=== PATIENT | female | born 1965 | race Caucasian/White ===

== ENCOUNTER 2017-03-07 09:43 | Outpatient (RCR) | payer MEDICARE ==
[~2017-03-07 09:43] MED LIST: ALBU8.5H2 INH; ASP325T PO; ASPI-624 PO; ASPI81TA45 PO; BNZT1T PO; BPR150TCR PO; BSC10SU PR; BUPR150T20 PO; CETI10TA17 PO; CHLO100T22 PO; CLON0.5T3 PO; CLON1TAB36 PO; CYCL10TA9 PO; FOLI-74 PO; HALO5TAB PO; HYDR-3729 PO; HYDR28CR10 TP; IRON150C6 PO; LORA10TA76 PO; LUBI24CA7 PO; LVT.1T PO; METFOR850T PO; METO25TA PO; MTP25TSR PO; MULT1CAP27 PO; NFPRILOC40 PO; OMEP40CA36 PO; OXCA600T3 PO; OXYC1TAB87 PO; PNT40TEC PO; POTA10CA43 PO; POTA10TA36 PO; PROAIR HFA 90MCG INH; QUET300T PO; SCR1T1 PO; SERT100T8 PO; SIMV40TA2 PO; SIMV40TA4 PO; SRTR100T PO; SUCR1TAB PO; TIOT18CA IH; TIOT18CA2 INH; TRAM50TA2 PO; TRAZ150T42 PO; TRM50T PO; ZIPR60CA6 PO
== END 2017-03-15 13:50 | disposition home or self-care (01) ==
PROVIDERS: ATTEND Nurse Practitioner Family
DX: S62.101D Fracture of unspecified carpal bone, right wrist, subsequent encounter for fracture with routine healing (principal)

== ENCOUNTER → 2017-04-29 | Outpatient (CLI) | payer MEDICARE ==
[~2017-04-29] MED LIST changes: +NITROGLYCERIN DRIP 25 MG/D5W 0 ML IV ONE
== END ==
LOC: CARD 08:16
PROVIDERS: ATTEND Physician Assistant
DX: I25.10 Atherosclerotic heart disease of native coronary artery without angina pectoris (principal); I10 Essential (primary) hypertension; E78.2 Mixed hyperlipidemia; I45.10 Unspecified right bundle-branch block
CPT/HCPCS: 93306

== ENCOUNTER → 2017-05-01 | Outpatient (CLI) | payer MEDICARE ==
[~2017-05-01] VITALS: Ht 180.3 cm; Wt 113.9 kg
[~2017-05-01] MED LIST changes: +CATHETER FLUSH 10 ML SYR IV PRN; -NITROGLYCERIN DRIP 25 MG/D5W 0 ML IV ONE; +REGADENOSON 0.4 MG/5 ML SYR (LEXISCAN) IV ONE
[2017-05-01 09:46] VITALS: BP 131/71
--- NOTE | 2017-05-02 06:10 | STRESS TEST ---
DATE OF SERVICE: 05/01/2017 LEXISCAN MYOVIEW STRESS TEST REPORT REFERRING PHYSICIAN: Dr. Char Gonzalez. Baseline heart rate is 58, baseline blood pressure 131/71. Baseline EKG is sinus rhythm with no ischemic changes. SUMMARY: The patient was injected with 10.47 mCi of technetium-99 Myoview and the resting images were obtained. Then, the patient received 0.4 mg of Lexiscan followed by 31.7 mCi of technetium-99 Myoview. Throughout the test, there were no EKG changes. The resting and stress images were reviewed and compared in the short axis, horizontal long axis, and vertical long axis views. Review of the images showed reversible ischemia involving the whole inferior wall and inferolateral wall. SSS is 12. SDS 12. PID value 1.14. On the gated images, the left ventricle appeared to be normal size with normal contractility. Calculated ejection fraction 65%. CONCLUSIONS: 1. The patient tolerated Lexiscan well. 2. Reversible ischemia involving the whole inferior wall and inferolateral wall. 3. Normal left ventricular size with normal contractility. Calculated ejection fraction 65%. Job ID: [id number] DocumentID: [id number] Dictated Date: 05/01/2017 15:06:31 Tractor Trailer Mechanic Date: 05/01/2017 19:49:07 Dictated By: SELENA MARIANO MD
== END ==
LOC: CARD 07:51
PROVIDERS: ATTEND Physician Assistant
DX: I25.10 Atherosclerotic heart disease of native coronary artery without angina pectoris (principal); I10 Essential (primary) hypertension; E78.2 Mixed hyperlipidemia; I45.10 Unspecified right bundle-branch block
CPT/HCPCS: 78452; 93017

== ENCOUNTER 2017-05-17 08:35 | Day surgery (SDC) | payer MEDICARE ==
[~2017-05-17] VITALS: Ht 181.6 cm; Wt 114.3 kg
[2017-05-17] VITALS (11 sets, daily range): BP systolic 101–135; BP diastolic 57–72
[~2017-05-17 08:35] MED LIST changes: -CATHETER FLUSH 10 ML SYR IV PRN; -REGADENOSON 0.4 MG/5 ML SYR (LEXISCAN) IV ONE
[2017-05-17] MEDS ORDERED: HEParin (CATH LAB) 2,000 ML IV ONE (08:42)
[2017-05-17] MEDS ORDERED: NS IV 1000 ML 1,000 ML ONE (08:42)
[2017-05-17] MEDS ORDERED: NS IV 1000 ML 1,000 ML IV SCH ×2 (08:49→10:32)
[2017-05-17 09:12] LABS: MEAN PLATELET VOLUME 10.4 FL (7.4-10.4); RED BLOOD COUNT 4.38 10^6/uL (4.35-5.85); RED CELL DISTRIBUTION WIDTH 12.3 % (10.0-14.5); WHITE BLOOD COUNT 6.6 10^3/uL (4.3-11.0)
--- NOTE | 2017-05-17 09:15 | Cardiac Procedure Note-CS/ASA ---
Pre-Procedure Note Pre-Op Procedure Note H&P Reviewed The H&P was reviewed, patient examined and no changes noted. Date H&P Reviewed: May 17, 2017 Time H&P Reviewed: 09:15 Conscious Sedation Pre-Proced Time Reviewed: 09:15 ASA Class: 3 Airway Mallampati Classification: ([place] appropriate class) I. II. III, IV Lungs Heart ASA score ASA 1: a normal healthy patient ASA 2: a patient with a mild systemic disease (mid diabetes, controlled hypertension, obesity x ASA 3: a patient with a severe systemic disease that limits activity (angina , COPD, prior Myocardial infarction) ASA 4: a patient with an incapacitating disease that is a constant threat to life (CHF, renal failure) ASA 5: a moribund patient not expected to survive 24 hrs. (ruptured aneurysm) ASA 6: a declared brain patient whose organs are being harvested. For emergent operations, add the letter E after the classification Grade 3 Sedation Plan: Analgesia, Amnesia, Plan communicated to team members, Discussed options with patient/fam, Discussed risks with patient/fam Note The patient is an appropriate candidate to undergo the planned procedure, sedation, and anesthesia. The patient immediately re-assessed prior to indication. SELENA MARIANO MD May 17, 2017 09:15
--- NOTE | 2017-05-17 09:19 | Diagnostic Imaging Report ---
EXAMINATION: Portable upright radiograph of the chest. INDICATION: Hypertension. Coronary artery disease. FINDINGS: The lungs are hyperinflated. The heart size is mildly enlarged. No effusion or pneumothorax. The mediastinum and luiz appear unremarkable. IMPRESSION: Hyperinflated clear lungs. Cardiomegaly. Dictated by: Dictated on workstation # [id number]
[2017-05-17 09:22] LABS: INR 0.9 (0.8-1.4); PROTHROMBIN TIME PATIENT 11.8 SEC (12.2-14.7)
[2017-05-17 09:28] LABS: CARBON DIOXIDE 27 MMOL/L (21-32); CHLORIDE 106 MMOL/L (98-107); POTASSIUM 3.8 MMOL/L (3.6-5.0); SODIUM 145 MMOL/L (135-145)
[2017-05-17 09:29] LABS: ALANINE AMINOTRANSFERASE 14 U/L (0-55); ANION GAP 12 MMOL/L (5-14); ASPARTATE AMINO TRANSFERASE 16 U/L (5-34); BILIRUBIN,TOTAL 0.3 MG/DL (0.1-1.0); BLOOD UREA NITROGEN 7 MG/DL (7-18); BUN/CREATININE RATIO 11 (0-20); CALCIUM 9.2 MG/DL (8.5-10.1); CHOLESTEROL 169 MG/DL (< 200); CREATININE SERUM 0.66 MG/DL (0.60-1.30); DIRECT LDL 69 MG/DL (1-129); GFR ESTIMATED > 60; GLUCOSE 91 MG/DL (70-105); HEMOLYSIS 11 (-100-29); ICTERUS 0.3 (-100-1.9); LIPEMIA 0 (-100-49); TOTAL PROTEIN 6.8 GM/DL (6.4-8.2); TRIGLYCERIDES 100 MG/DL (<150); VLDL CHOLESTEROL 20 MG/DL (5-40)
[2017-05-17] MEDS ORDERED: MIDAZOLAM 5 MG/5 ML (VERSED) VIAL ONE (09:33)
[2017-05-17] MEDS ORDERED: fentaNYL INJECTION 100 MCG/2 ML AMP ONE (09:33)
[2017-05-17] MEDS ORDERED: DIVA250T2 PO (09:46)
[2017-05-17] MEDS ORDERED: CARI4.5C PO (09:46)
[2017-05-17] MEDS ORDERED: GABA800T2 PO (09:46)
[2017-05-17] MEDS ORDERED: MULT-35 PO (09:46)
[2017-05-17] MEDS ORDERED: TRIH5TAB2 PO (09:46)
[2017-05-17] MEDS ORDERED: FERR-84 PO (09:46)
[2017-05-17] MEDS ORDERED: PARO30TA3 PO (09:46)
[2017-05-17] MEDS ORDERED: IRON1CAP21 PO (09:46)
[2017-05-17] MEDS ORDERED: LEVO88TA54 PO (09:46)
[2017-05-17] MEDS ORDERED: PANT40TA2 PO (09:46)
[2017-05-17] MEDS ORDERED: IPRA4AER IH (09:46)
[2017-05-17] MEDS ORDERED: FURO20TA4 PO (09:55)
[2017-05-17] MEDS ORDERED: ONDA8TAB6 PO (09:55)
[2017-05-17] MEDS ORDERED: LUBI24CA6 PO (09:55)
[2017-05-17] MEDS ORDERED: BUTA1CAP45 PO (09:55)
--- NOTE | 2017-05-17 10:32 | Cardiology Post Procedure Note ---
Post-Procedure Note Physician (s)/Field Counsel (s) Physician SELENA MARIANO MD Pre-Procedure Diagnosis Pre-Procedure Diagnosis: CAD Post-Procedure Note Procedure Start Date: May 17, 2017 Procedure Start Time: 10:00 Name of Procedure: [facility] Findings/Procedure Note CAD MILD Anesthesia Type: Conscious Sedation Estimated blood loss (mL): 20 Contrast Amount: 50 Post-Procedure Diagnosis Post-operative diagnosis: CAD SELENA MARIANO MD May 17, 2017 10:32
--- NOTE | 2017-05-17 10:34 | Discharge Inst-Post CATH ---
Discharge Inst-CATH Post Cardiac Cath D/C Inst Follow Up/Plan Appointment with Dr Doyle's office in 2-4 weeks CARDIAC CATH DISCHARGE INSTRUCTIONS *Hold Metformin for 48 hours post heart cath. ACTIVITY * Go Home directly and rest. * Limit activity of the leg (or wrist if it was used) for 7 days including aerobics, swimming, jogging, bicycling, etc. * Restrict stair-climbing for 7 days if possible, if not, climb up with your non -cath leg, then bring together on the same step. * Avoid lifting, pushing, pulling or excessive movement of the affected extremity for 7 days. * Customary sexual activity may be resumed after 2 days-use caution not to use a position that strains or causes pain to the affected extremity. * No driving for 24 hours. * NO SMOKING. * Avoid straining for bowel movements for 7 days. * Gentle walking on level ground is allowed. * Returning to work will depend on the type of procedure and the results. Your doctor will discuss this with you. CALL YOUR DOCTOR FOR ANY OF THE FOLLOWING: *If bleeding from the puncture site occurs- Apply gentle pressure to site with clean cloth and call your doctor or EMS. * If a knot or lump forms under the skin, increases in size, or causes pain. * If bruising appears to be worsening or moving further down your leg instead of disappearing. * Temperature above 101 F. CARE OF YOUR GROIN INCISION; * Bruising or purple discoloration of the skin near the puncture site is common. * You may shower only, no bathtub bathing for 5 days. Be careful to avoid slipping as your leg may feel stiff. * If a closure device was used on your femoral artery, please see the attached guide regarding care of the device and your leg. * REMOVE the dressing from your groin the next day after your procedure in the shower. CARE OF YOUR WRIST INCISION; * Bruising or purple discoloration of the skin near the puncture site is common. * You may shower. * DO NOT submerge wrist. * Remove dressing in 24 hours. SELENA DOYLE MD May 17, 2017 10:34
[2017-05-17] MEDS ORDERED: PATIENT MAY USE OWN MEDS, ALL PO SCH (10:45)
--- NOTE | 2017-05-17 11:20 | CARDIAC CATHETERIZATION ---
DATE OF SERVICE: 05/17/2017 REFERRING PHYSICIAN: Dr. Char Gonzalez BRIEF HISTORY: The patient is a 51-year-old lady with history of coronary artery, mild to moderate disease, hypertension, hyperlipidemia, had an abnormal stress test. She was scheduled for left heart catheterization, possible PTCA. PROCEDURE NOTE: After explaining the procedure to the patient, all pros and cons were explained, all questions were answered. The patient signed the consent and then she was placed on the cardiac catheterization laboratory. Right groin was prepped in a sterile fashion, local anesthesia applied to the right groin. A 6-Turkish sheath was placed in the right femoral artery. Combination of right and left Nic catheter were used to access the right and left coronary system. Multiple views were obtained. Pigtail catheter advanced to the left ventricular cavity. Left ventriculogram was done. Pullback LV to aorta was done. Aortic arch angiogram was done. Then at the end of the procedure, sheath was removed, Mynx device deployed, and hemostasis achieved. TOTAL CONTRAST USED: 50 mL. TOTAL RADIATION DOSE: 40 mGy. FINDINGS: HEMODYNAMICS: LV pressure 130/17, end diastolic pressure of 17, aortic pressure 136/100 mean of 71. No significant gradient across the aortic valve. ANATOMY: 1. Left main coronary artery is bifurcating into left anterior descending and left circumflex artery with no obstructive disease. 2. Left anterior descending artery is moderate in size with mild disease, nonobstructive disease. 3. Left circumflex artery is moderate in size with no significant obstructive disease. 4. Right coronary artery is moderate in size. Mild disease distally, nonobstructive disease. 5. No left ventriculogram was done. 6. Aortic arch angiogram appeared to be normal in size, no dissection or aneurysm was seen. Origin of the great neck vessels appeared normal. CONCLUSION: 1. Mild coronary artery disease, nonobstructive disease. 2. Normal left ventricular end diastolic pressure. 3. Normal aortic arch and great neck vessels. DISCUSSION AND RECOMMENDATION: The patient's stress test abnormality is probably due to small vessel disease. Medical therapy is recommended. No intervention is warranted. FINAL DIAGNOSES: 1. Coronary artery disease. 2. Hypertension. 3. Hyperlipidemia. Job ID: [id number] DocumentID: [id number] Dictated Date: 05/17/2017 10:39:09 Internet Technology Manager Date: 05/17/2017 11:19:47 Dictated By: SELENA MARIANO MD
--- OUTSIDE RECORDS SUMMARY | 2017-05-20 14:40 | XMS REPORT | Continuity of Care Document ---
Author Author [facility] Organization [facility] Address Unknown Phone Unavailable Allergies Active Description Code Type Severity Reaction Onset Reported/Identified Relationship to Patient Clinical Status Yes morphine [id number] Drug Allergy Mild ITCHING 03/23/2014 Yes naproxen [id number] Drug Allergy Mild ITCHING 03/23/2014 Medications Problems Date Dx Coded Attending Type Code Diagnosis Diagnosed By 10/24/1139 BARTOLOME LUCIANO APRN Ot S62.624D DISP FX OF MED PHALANX OF R RNG FNGR, 7T 10/24/1139 BARTOLOME LUCIANO APRN Ot W19.XXXD UNSPECIFIED FALL, SUBSEQUENT ENCOUNTER 10/24/1139 BARTOLOME LUCIANO APRN Ot 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, STORE OR MARKET PLACE 10/24/1139 BARTOLOME LUCIANO APRN Ot Y99.8 OTHER EXTERNAL CAUSE STATUS 10/24/1349 BARTOLOME LUCIANO APRN Ot S62.101D FX UNSP CARPAL BONE, RIGHT WRIST, SUBS F 08/20/2011 Ot 244.9 08/20/2011 Ot 250.00 08/20/2011 Ot 272.4 08/20/2011 Ot 300.00 08/20/2011 Ot 401.9 08/20/2011 Ot 786.50 08/20/2011 Ot 794.8 08/20/2011 Ot V58.69 11/08/2011 Ot V43.65 KNEE JOINT REPLACEMENT STATUS 11/08/2011 Ot V54.81 AFTERCARE FOLLOWING JOINT REPLACEMENT 11/08/2011 Ot V57.1 PHYSICAL THERAPY NEC 04/25/2012 Ot 724.2 LUMBAGO 04/25/2012 Ot V57.1 PHYSICAL THERAPY NEC 04/25/2012 Ot 719.46 JOINT PAIN-L/LEG 04/25/2012 Ot V43.65 KNEE JOINT REPLACEMENT STATUS 04/25/2012 Ot V54.81 AFTERCARE FOLLOWING JOINT REPLACEMENT 04/25/2012 Ot V57.1 PHYSICAL THERAPY NEC 12/24/2013 LASHAE LUANNE Ot 722.52 LUMB/LUMBOSAC DISC DEGEN 12/24/2013 LOUISDELMIS SCHMITTLUANNE Ot V57.1 PHYSICAL THERAPY NEC 04/05/2014 [facility]FRANSICO SCHMITT YUAN Troy Ot 250.00 DIAB YS WO COMPL, TYPE II OR UNSPEC TY 04/05/2014 [facility]FRANSICO SCHMITT YUAN Troy Ot 276.8 HYPOPOTASSEMIA 04/05/2014 MICHAELFRANSICO DO YUAN Troy Ot 300.00 ANXIETY STATE NOS 04/05/2014 YAMILE SCHMITT YUAN Troy Ot 311 DEPRESSIVE DISORDER NEC 04/05/2014 MICHAELFRANSICO SCHMITT YUAN Troy Ot 401.9 HYPERTENSION NOS 04/05/2014 MICHAELFRANSICO SCHMITT YUAN Troy Ot 493.90 ASTHMA, UNSPECIFIED 04/05/2014 MICHAELFRANSICO SCHMITT YUAN Troy Ot 996.42 DISLOCATION OF PROSTHETIC JOINT 04/05/2014 MICHAELFRANSICO SCHMITT YUAN Troy Ot V43.65 KNEE JOINT REPLACEMENT STATUS 04/15/2014 GARCÍA GUTIERREZ, SELENA Geiger Ot 244.9 HYPOTHYROIDISM NOS 04/15/2014 SELENA MARIANO MD Ot 272.4 HYPERLIPIDEMIA NEC/NOS 04/15/2014 SELENA MARIANO MD Ot 401.9 HYPERTENSION NOS 04/15/2014 SELENA MARIANO MD Ot 785.1 PALPITATIONS 07/01/2014 BRIANNE JOHNSON Ot 244.9 HYPOTHYROIDISM NOS 07/01/2014 BRIANNE JOHNSON Ot 250.00 DIAB SY WO COMPL, TYPE II OR UNSPEC TY 07/01/2014 BRIANNE JOHNSON Ot 311 DEPRESSIVE DISORDER NEC 07/01/2014 BRIANEN JOHNSON Ot 493.90 ASTHMA, UNSPECIFIED 07/01/2014 BRIANNE JOHNSON Ot 564.1 IRRITABLE BOWEL SYNDROME 07/01/2014 BRIANNE JOHNSON Ot 696.1 OTHER PSORIASIS 07/01/2014 BRIANNE JOHNSON Ot 716.90 ARTHROPATHY NOS-UNSPEC 07/01/2014 BRIANNE JOHNSON Ot 785.1 PALPITATIONS 07/01/2014 BRIANNE JOHNSON Ot 847.0 SPRAIN OF NECK 07/01/2014 BRIANNE JOHNSON Ot 850.0 CONCUSSION W/O COMA 07/01/2014 BRIANNE JOHNSON Ot 924.8 MULTIPLE CONTUSIONS NEC 07/01/2014 GEM OROZCO BRIANNE L Ot E849.0 ACCIDENT IN HOME 07/01/2014 GEM OROZCO BRIANNE L Ot E888.1 FALL STRIKING OBJECT NEC 07/01/2014 GEM OROZCO BRIANNE L Ot V58.66 LONG-TERM (CURRENT) USE OF ASPIRIN 08/03/2014 EDWARD SANCHEZ MD Ot V43.65 KNEE JOINT REPLACEMENT STATUS 08/03/2014 EDWARD SANCHEZ MD Ot V54.81 AFTERCARE FOLLOWING JOINT REPLACEMENT 08/03/2014 EDWARD SANCHEZ MD Ot V57.89 REHABILITATION PROC NEC 08/06/2014 EDWARD SANCHEZ MD Ot V43.65 KNEE JOINT REPLACEMENT STATUS 08/06/2014 EDWARD SANCHEZ MD, Ot V54.81 AFTERCARE FOLLOWING JOINT REPLACEMENT 08/06/2014 EDWARD SANCHEZ MD Ot V57.89 REHABILITATION PROC NEC 10/14/2014 Ot 250.00 10/14/2014 Ot 397.0 10/14/2014 Ot 424.0 10/14/2014 Ot 729.5 10/14/2014 Ot 786.50 10/14/2014 Ot 250.00 10/14/2014 Ot 786.50 10/14/2014 Ot V58.66 10/14/2014 Ot V58.69 10/14/2014 Ot 786.50 10/14/2014 Ot V72.63 10/14/2014 Ot V72.81 10/14/2014 Ot 272.4 10/14/2014 SELENA MARIANO MD Ot 397.0 10/14/2014 SELENA MARIANO MD Ot 424.0 10/14/2014 SELENA MARIANO MD Ot 785.1 10/14/2014 SELENA MARIANO MD Ot 786.50 10/14/2014 YUAN OVALLE DO Ot 719.46 10/14/2014 YUAN OVALLE DO Ot V72.63 10/14/2014 YUAN OVALLE DO Ot V72.81 10/14/2014 YUAN OVALLE DO Ot V72.83 10/14/2014 YUAN OVALLE DO Ot V72.84 10/14/2014 YUAN OVALLE DO Ot V74.8 10/14/2014 YUAN OVALLE DO Ot 729.81 10/14/2014 Ot 244.9 10/14/2014 Ot 272.4 10/14/2014 Ot 401.9 10/14/2014 Ot 785.1 10/14/2014 YUAN OVALLE DO Ot 729.81 10/28/2014 Ot 250.00 10/28/2014 Ot 397.0 10/28/2014 Ot 424.0 10/28/2014 Ot 729.5 10/28/2014 Ot 786.50 10/28/2014 Ot 250.00 10/28/2014 Ot 786.50 10/28/2014 Ot V58.66 10/28/2014 Ot V58.69 10/28/2014 Ot 786.50 10/28/2014 Ot V72.63 10/28/2014 Ot V72.81 10/28/2014 Ot 272.4 10/28/2014 SELENA MARIANO MD Ot 397.0 10/28/2014 SELENA MARIANO MD Ot 424.0 10/28/2014 SELENA MARAINO MD Ot 785.1 10/28/2014 SELENA MARIANO MD Ot 786.50 10/28/2014 YUAN OVALLE DO Ot 719.46 10/28/2014 YUAN OVALLE DO Ot V72.63 10/28/2014 YUAN OVALLE DO Ot V72.81 10/28/2014 YUAN OVALLE DO Ot V72.83 10/28/2014 YUAN OVALLE DO Ot V72.84 10/28/2014 YUAN OVALEL DO Ot V74.8 10/28/2014 YUAN OVALLE DO Ot 729.81 10/28/2014 Ot 244.9 10/28/2014 Ot 272.4 10/28/2014 Ot 401.9 10/28/2014 Ot 785.1 11/22/2014 YUAN OVALLE DO Ot 729.81 11/30/2014 SELENA MARIANO MD Ot 272.4 11/30/2014 SELENA MARIANO MD Ot 397.0 11/30/2014 SELENA MARIANO MD Ot 401.9 11/30/2014 SELENA MARIANO MD Ot 424.0 11/30/2014 SELENA MARIANO MD Ot 426.4 11/30/2014 SELENA MARIANO MD Ot 786.50 12/07/2014 SELENA MARIANO MD Ot 272.4 12/07/2014 SELENA MARIANO MD Ot 397.0 12/07/2014 SELENA MARIANO MD Ot 401.9 12/07/2014 SELENA MARIANO MD Ot 424.0 12/07/2014 SELENA MARIANO MD Ot 426.4 12/07/2014 SELENA MARIANO MD Ot 786.50 12/22/2014 SELENA MARIANO MD Ot 244.9 HYPOTHYROIDISM NOS 12/22/2014 SELENA MARIANO MD Ot 250.00 DIAB SY WO COMPL, TYPE II OR UNSPEC TY 12/22/2014 SELENA MARIANO MD Ot 272.4 HYPERLIPIDEMIA NEC/NOS 12/22/2014 SELENA MARIANO MD Ot 278.00 OBESITY, NOS 12/22/2014 SELENA MARIANO MD Ot 401.9 HYPERTENSION NOS 12/22/2014 SELENA MARIANO MD Ot 414.01 CORONARY ATHEROSCLEROSIS OF [place] CORON 12/22/2014 SELENA MARIANO MD Ot 786.50 CHEST PAIN NOS 12/22/2014 SELENA MARIANO MD Ot V58.69 OT MED,LT,CURRENT USE 12/22/2014 SELENA MARIANO MD Ot V85.33 BODY MASS INDEX 33.0-33.9, ADULT 12/25/2014 SELENA MARIANO MD Ot 272.4 12/25/2014 SELENA MARIANO MD Ot 397.0 12/25/2014 SELENA MARIANO MD Ot 401.9 12/25/2014 SELENA MARIANO MD Ot 424.0 12/25/2014 SELENA MARIANO MD Ot 426.4 12/25/2014 SELENA MARIANO MD Ot 786.50 12/29/2014 Ot 250.00 12/29/2014 Ot 397.0 12/29/2014 Ot 424.0 12/29/2014 Ot 729.5 12/29/2014 Ot 786.50 12/29/2014 Ot 250.00 12/29/2014 Ot 786.50 12/29/2014 Ot V58.66 12/29/2014 Ot V58.69 12/29/2014 Ot 786.50 12/29/2014 Ot V72.63 12/29/2014 Ot V72.81 12/29/2014 Ot 272.4 12/29/2014 GARCÍA GUTIERREZ, SELENA Geiger Ot 397.0 12/29/2014 GARCÍA GUTIERREZ, SELENA Geiger Ot 424.0 12/29/2014 GARCÍA GUTIERREZ, SELENA Geiger Ot 785.1 12/29/2014 GARCÍA GUTIERREZ, SELENA Geiger Ot 786.50 12/29/2014 SATTERLY DOYUAN Ot 719.46 12/29/2014 SATTERLY DO, YUAN Troy Ot V72.63 12/29/2014 SATTERLY DO, YUAN Troy Ot V72.81 12/29/2014 SATTERLY DO, YUAN Troy Ot V72.83 12/29/2014 SATTERLY DO, YUAN Troy Ot V72.84 12/29/2014 [facility]LY DO, YUAN Troy Ot V74.8 12/29/2014 [facility]LY DO, YUAN Troy Ot 729.81 12/29/2014 Ot 244.9 12/29/2014 Ot 272.4 12/29/2014 Ot 401.9 12/29/2014 Ot 785.1 12/29/2014 GARCÍA GUTIERREZ, SELENA Geiger Ot 272.4 12/29/2014 GARCÍA GUTIERREZ, SELENA Geiger Ot 397.0 12/29/2014 GARCÍA GUTIERREZ, SELENA Geiger Ot 401.9 12/29/2014 GARCÍA GUTIERREZ, SELENA Geiger Ot 424.0 12/29/2014 GARCÍA GUTIERREZ, SELENA Geiger Ot 426.4 12/29/2014 GARCÍA GUTIERREZ, SELENA Geiger Ot 786.50 12/29/2014 GARCÍA GUTIERREZ, SELENA Geiger Ot 401.9 12/29/2014 GARCÍA GUTIERREZ, SELENA Geiger Ot 414.00 12/29/2014 GARCÍA GUTIERREZ, SELENA Geiger Ot 427.31 12/29/2014 GARCÍA GUTIERREZ, SELENA Geiger Ot 428.0 12/29/2014 GARCÍA GUTIERREZ, SELENA Geiger Ot 401.9 12/29/2014 GARCÍA GUTIERREZ, SELENA Geiger Ot 414.00 12/29/2014 GARCÍA GUTIERREZ, SELENA Geiger Ot 427.31 12/29/2014 GARCÍA GUTIERREZ, SELENA Geiger Ot 428.0 01/13/2015 GARCÍA GUTIERREZ, SELENA Geiger Ot 401.9 01/13/2015 SELENA MARIANO MD Ot 414.00 01/13/2015 GARCÍA GUTIERREZ, SELENA Geiger Ot 427.31 01/13/2015 SELENA MARIANO MD Ot 428.0 01/14/2015 Ot 250.00 01/14/2015 Ot 397.0 01/14/2015 Ot 424.0 01/14/2015 Ot 729.5 01/14/2015 Ot 786.50 01/14/2015 Ot 250.00 01/14/2015 Ot 786.50 01/14/2015 Ot V58.66 01/14/2015 Ot V58.69 01/14/2015 Ot 786.50 01/14/2015 Ot V72.63 01/14/2015 Ot V72.81 01/14/2015 Ot 272.4 01/14/2015 SELENA MARIANO MD Ot 397.0 01/14/2015 SELENA MARIANO MD Ot 424.0 01/14/2015 SELENA MARIANO MD Ot 785.1 01/14/2015 SELENA MARIANO MD Ot 786.50 01/14/2015 [facility] Ot 719.46 01/14/2015 [facility] DO, YUAN F Ot V72.63 01/14/2015 [facility] DO, YUAN F Ot V72.81 01/14/2015 [facility] DO, YUAN F Ot V72.83 01/14/2015 [facility] DO, YUAN F Ot V72.84 01/14/[facility] Ot V74.8 01/14[facility] F Ot 729.81 01/14/2015 Ot 244.9 01/14/2015 Ot 272.4 01/14/2015 Ot 401.9 01/14/2015 Ot 785.1 01/14/2015 SELENA MARIANO MD Ot 272.4 01/14/2015 GARCÍA GUTIERREZ, SELENA Geiger Ot 397.0 01/14/2015 SELENA MARIANO MD Ot 401.9 01/14/2015 SELENA MARIANO MD Ot 424.0 01/14/2015 SELENA MARIANO MD Ot 426.4 01/14/2015 SELENA MARIANO MD Ot 786.50 01/14/2015 SELENA MARIANO MD Ot 401.9 01/14/2015 GARCÍA GUTIERREZ, BASHAR J Ot 414.00 01/14/2015 GARCÍA GUTIERREZ, BASHAR J Ot 427.31 01/14/2015 GARCÍA GUTIERREZ, BASHAR J Ot 428.0 01/14/2015 DANIEL GUTIERREZ, EDWARD Ambrosio Ot V43.65 01/14/2015 DANIEL GUTIERREZ, EDWARD C Ot V54.81 01/14/2015 DANIEL GUTIERREZ, EDWARD C Ot V57.1 01/14/2015 DANIEL GUTIERREZ, EDWARD C Ot V43.65 01/14/2015 DANIEL GUTIERREZ, EDWARD C Ot V54.81 01/14/2015 DANIEL GUTIERREZ, EDWARD C Ot V57.1 01/14/2015 DANIEL GUTIERREZ, EDWARD C Ot V43.65 01/14/2015 DANIEL GUTIERREZ, EDWARD C Ot V54.81 01/14/2015 DANIEL GUTIERREZ, EDWARD C Ot V57.1 02/15/2015 GARCÍA GUTIERREZ, SELENA Geiger Ot 401.9 02/15/2015 GARCÍA GUTIERREZ, SELENA J Ot 414.00 02/15/2015 GARCÍA GUTIERREZ, SELENA J Ot 427.31 02/15/2015 GARCAÍ GUTIERREZ, SELENA J Ot 428.0 02/15/2015 DANIEL GUTIERREZ, EDWARD Ambrosio Ot V43.65 02/15/2015 DANIEL GUTIERREZ, EDWARD C Ot V54.81 02/15/2015 DANIEL GUTIERREZ, EDWARD C Ot V57.1 02/15/2015 GARCÍA GUTIERREZ, SELENA J Ot 401.9 02/15/2015 GARCÍA GUTIERREZ, BASHAR J Ot 414.00 02/15/2015 GARCÍA GUTIERREZ, BASHAR J Ot 427.31 02/15/2015 GARCÍA GUTIERREZ, BASJIM J Ot 428.0 02/22/2015 DANIEL GUTIERREZ, EDWARD C Ot V43.65 02/22/2015 DANIEL GUTIERREZ, EDWARD C Ot V54.81 02/22/2015 DANIEL GUTIERREZ, EDWARD C Ot V57.1 02/22/2015 GARCÍA GUTIERREZ, SELENA J Ot 401.9 02/22/2015 GARCÍA GUTIERREZ, SELENA J Ot 414.00 02/22/2015 GARCÍA GUTIERREZ, PETEHAR J Ot 427.31 02/22/2015 GARCÍA GUTIERREZ, SELENA Geiger Ot 428.0 03/17/2015 EDWARD SANCHEZ MD Ot V43.65 KNEE JOINT REPLACEMENT STATUS 03/17/2015 EDWARD SANCHEZ MD Ot V54.81 AFTERCARE FOLLOWING JOINT REPLACEMENT 03/17/2015 EDWARD SANCHEZ MD Ot V57.1 PHYSICAL THERAPY NEC 04/06/2015 BRANDIN LOZADA MD Ot 346.90 04/06/2015 YAMILE SCHMITT YUAN Troy Ot 729.81 04/23/2015 BRANDIN LOZADA MD Ot 346.90 05/31/2015 BRANDIN LOZADA MD Ot 346.90 06/09/2015 BRANDIN LOZADA MD Ot 346.90 08/24/2015 EDWARD SANCHEZ MD Ot V43.65 KNEE JOINT REPLACEMENT STATUS 08/24/2015 EDWARD SANCHEZ MD Ot V54.81 AFTERCARE FOLLOWING JOINT REPLACEMENT 08/24/2015 EDWARD SANCHEZ MD Ot V57.1 PHYSICAL THERAPY NEC 08/25/2015 EDWARD SANCHEZ MD Ot V43.65 08/25/2015 EDWARD SANCHEZ MD Ot V54.81 08/25/2015 EDWARD SANCHEZ MD Ot V57.1 08/25/2015 EDWARD SANCHEZ MD Ot V43.65 08/25/2015 EDWARD SANCHEZ MD Ot V54.81 08/25/2015 EDWARD SANCHEZ MD Ot V57.1 10/14/2015 NIRMAL JACKSON MD Ot S00.93XA CONTUSION OF UNSPECIFIED PART OF HEAD, I 10/14/2015 NIRMAL JACKSON MD Ot W01.10XA FALL SAME LEV FROM SLIP/TRIP W STRIKE AG 10/14/2015 NIRMAL JACKSON MD Ot Y92.[address] TO SINGLE-FAMILY ( PRIVA 10/14/2015 NIRMAL JACKSON MD Ot Y99.8 OTHER EXTERNAL CAUSE STATUS 10/14/2015 NIRMAL JACSKON MD Ot 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 10/14/2015 NIRMAL JACKSON MD Ot Z96.651 PRESENCE OF RIGHT ARTIFICIAL KNEE JOINT 10/24/2015 EDWARD SANCHEZ MD, Ot Z47.1 10/24/2015 EDWARD SANCHEZ MD Ot Z96.651 11/15/2015 Ot 250.00 11/15/2015 Ot 397.0 11/15/2015 Ot 424.0 11/15/2015 Ot 729.5 11/15/2015 Ot 786.50 11/15/2015 Ot 250.00 11/15/2015 Ot 786.50 11/15/2015 Ot V58.66 11/15/2015 Ot V58.69 11/15/2015 Ot 786.50 11/15/2015 Ot V72.63 11/15/2015 Ot V72.81 11/15/2015 Ot 272.4 11/15/2015 SELENA MARIANO MD Ot 397.0 11/15/2015 SELENA MARAINO MD Ot 424.0 11/15/2015 SELENA MARIANO MD Ot 785.1 11/15/2015 SELENA MARIANO MD Ot 786.50 11/15/2015 [facility] 719.46 11/15/2015 [facility] DO, YUAN Troy Ot V72.63 11/15/2015 [facility] YUAN SCHMITT Ot V72.81 11/15/2015 [facility] YUAN SCHMITT Ot V72.83 11/15/2015 [facility] , YUAN Troy Ot V72.84 11/15/2015 [facility] YUAN SCHMITT Ot V74.8 11/15/2015 [facility] YUAN SCHMITT Ot 729.81 11/15/2015 Ot 244.9 11/15/2015 Ot 272.4 11/15/2015 Ot 401.9 11/15/2015 Ot 785.1 11/15/2015 SELENA MARIANO MD Ot 272.4 11/15/2015 SELENA MARIANO MD Ot 397.0 11/15/2015 SELENA MARIANO MD Ot 401.9 11/15/2015 SELENA MARIANO MD Ot 424.0 11/15/2015 SELENA MARIANO MD Ot 426.4 11/15/2015 SELENA MARIANO MD Ot 786.50 11/15/2015 SELENA MARIANO MD Ot 401.9 11/15/2015 SELENA MARIANO MD Ot 414.00 11/15/2015 GARCÍA GUTIERREZ, SELENA Geiger Ot 427.31 11/15/2015 GARCÍA GUTIERREZ, SELENA Geiger Ot 428.0 11/15/2015 KIERRA GUTIERREZ, BRANDIN Flynn Ot 346.90 11/15/2015 DANIEL GUTIERREZ, EDWARD Ambrosio Ot Z47.1 11/15/2015 EDWARD SANCHEZ MD Ot Z96.651 11/24/2015 DANIEL GUTIERREZ, EDWARD Ambrosio Ot Z47.1 AFTERCARE FOLLOWING JOINT REPLACEMENT CUEVAS 11/24/2015 DANIEL GUTIERREZ, EDWARD Ambrosio Ot Z96.651 PRESENCE OF RIGHT ARTIFICIAL KNEE JOINT 11/28/2015 Ot 250.00 11/28/2015 Ot 397.0 11/28/2015 Ot 424.0 11/28/2015 Ot 729.5 11/28/2015 Ot 786.50 11/28/2015 Ot 250.00 11/28/2015 Ot 786.50 11/28/2015 Ot V58.66 11/28/2015 Ot V58.69 11/28/2015 Ot 786.50 11/28/2015 Ot V72.63 11/28/2015 Ot V72.81 11/28/2015 Ot 272.4 11/28/2015 GARCÍA GUTIERREZ, SELENA Geiger Ot 397.0 11/28/2015 SELENA MARIANO MD Ot 424.0 11/28/2015 SELENA MARIANO MD Ot 785.1 11/28/2015 SELENA MARIANO MD Ot 786.50 11/28/2015 YUAN OVALLE DO Ot 719.46 11/28/2015 SATCELIALY YUAN SCHMITT F Ot V72.63 11/28/2015 SATCELIALY YUAN SCHMITT F Ot V72.81 11/28/2015 SATCELIALY YUAN SCHMITT F Ot V72.83 11/28/2015 SATTERLY DO YUAN F Ot V72.84 11/28/2015 SATTERLY YUAN SCHMITT F Ot V74.8 11/28/2015 SATCELIALY YUAN SCHMITT F Ot 729.81 11/28/2015 Ot 244.9 11/28/2015 Ot 272.4 11/28/2015 Ot 401.9 11/28/2015 Ot 785.1 11/28/2015 SELENA MARIANO MD Ot 272.4 11/28/2015 SELENA MARIANO MD Ot 397.0 11/28/2015 GARCÍA GUTIERREZ, SELENA Geiger Ot 401.9 11/28/2015 GARCÍA GUTIERREZ, SELENA Geiger Ot 424.0 11/28/2015 GARCÍA GUTIERREZ, SELENA Geiger Ot 426.4 11/28/2015 SELENA MARIANO MD Ot 786.50 11/28/2015 GARCÍA GUITERREZ, SELENA Geiger Ot 401.9 11/28/2015 GARCÍA GUTIERREZ, SELENA Geiger Ot 414.00 11/28/2015 GARCÍA GUTIERREZ, SELENA Geiger Ot 427.31 11/28/2015 GARCÍA GUTIERREZ, SELENA Geiger Ot 428.0 11/28/2015 KIERRA GUTIERREZ, BRANDIN Flynn Ot 346.90 11/28/2015 RUFINA DPM, ALBERT Q Ot G57.51 11/28/2015 RUFINA DPM, ALBERT Q Ot M25.474 11/28/2015 DANIEL GUTIERREZ, EDWARD Ambrosio Ot Z47.1 11/28/2015 DANIEL GUTIERREZ, EDWARD Ambrosio Ot Z96.651 11/28/2015 DANIEL GUTIERREZ, EDWARD Ambrosio Ot Z47.1 11/28/2015 DANIEL GUTIERREZ, EDWARD C Ot Z96.651 11/28/2015 DANIEL GUTIERREZ, EDWARD Ambrosio Ot Z47.1 11/28/2015 DANIEL GUTIERREZ, EDWARD Ambrosio Ot Z96.651 12/09/2015 RUFINA DPM, ALBERT Q Ot G57.51 12/09/2015 RUFINA DPM, ALBERT Q Ot M25.474 12/27/2015 Ot 250.00 12/27/2015 Ot 397.0 12/27/2015 Ot 424.0 12/27/2015 Ot 729.5 12/27/2015 Ot 786.50 12/27/2015 Ot 250.00 12/27/2015 Ot 786.50 12/27/2015 Ot V58.66 12/27/2015 Ot V58.69 12/27/2015 Ot 786.50 12/27/2015 Ot V72.63 12/27/2015 Ot V72.81 12/27/2015 Ot 272.4 12/27/2015 GARCÍA GUTIERREZ, SELENA Geiger Ot 397.0 12/27/2015 GARCÍA GUTIERREZ, SELENA Geiger Ot 424.0 12/27/2015 GARCÍA GUTIERREZ, SELENA Geiger Ot 785.1 12/27/2015 GARCÍA GUTIERREZ, BASJIM J Ot 786.50 12/27/2015 SATHUBERT DO, YUAN Troy Ot 719.46 12/27/2015 SATCELIALY DO, YUAN Troy Ot V72.63 12/27/2015 SATTERLY DO, YUAN Troy Ot V72.81 12/27/2015 SATTERLY DO, YUAN Troy Ot V72.83 12/27/2015 SATTERLY DO, YUAN Tryo Ot V72.84 12/27/2015 SATTERLY DO, YUAN Troy Ot V74.8 12/27/2015 SATTERLY DO, YUAN Troy Ot 729.81 12/27/2015 Ot 244.9 12/27/2015 Ot 272.4 12/27/2015 Ot 401.9 12/27/2015 Ot 785.1 12/27/2015 GARCÍA GUTIERREZ, SELENA Geiger Ot 272.4 12/27/2015 GARCÍA GUTIERREZ, SELENA J Ot 397.0 12/27/2015 GARCÍA GUTIERREZ, SELENA J Ot 401.9 12/27/2015 GARCÍA GUTIERREZ, SELENA J Ot 424.0 12/27/2015 GARCÍA GUTIERREZ, SELENA J Ot 426.4 12/27/2015 GARCÍA GUTIERREZ, SELENA J Ot 786.50 12/27/2015 GARCÍA GUTIERREZ, SELENA J Ot 401.9 12/27/2015 GARCÍA GUTIERREZ, SELENA Geiger Ot 414.00 12/27/2015 GARCÍA GUTIERREZ, SELENA Geiger Ot 427.31 12/27/2015 GARCÍA GUTIERREZ, SELENA Geiger Ot 428.0 12/27/2015 BRANDIN LOZADA MD Ot 346.90 12/27/2015 RUFINA DPM, ALBERT Q Ot G57.51 12/27/2015 RUFINA DPM, ALBERT Q Ot M25.474 12/27/2015 DANIEL GUTIERREZ, EDWARD Ambrosio Ot Z47.1 12/27/2015 EDWARD SANCHEZ MD Ot Z96.651 12/27/2015 RUFINA DPM, ALBERT Q Ot G57.51 12/27/2015 RUFINA DPM, ALBERT Q Ot M25.474 01/03/2016 DANIEL GUTIERREZ, EDWARD Ambrosio Ot Z47.1 AFTERCARE FOLLOWING JOINT REPLACEMENT CUEVAS 01/03/2016 DANIEL GUTIERREZ, EDWARD Ambrosio Ot Z96.651 PRESENCE OF RIGHT ARTIFICIAL KNEE JOINT 01/11/2016 RUFINA DPM, ALBERT Q Ot G57.51 01/11/2016 RUFINA DPM, ALBERT Q Ot M25.474 03/20/2016 ANKITA, BARTOLOME E CAN WASHER Ot S62.624D DISP FX OF MED PHALANX OF R RNG FNGR, 7T 03/20/2016 ANKITA, BARTOLOME E CAN WASHER Ot W19.XXXD UNSPECIFIED FALL, SUBSEQUENT ENCOUNTER 03/20/2016 ANKITA, BARTOLOME E CAN WASHER Ot 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33 OBSTRUCTIVE SLEEP APNEA (ADULT) (PEDIATR 11/02/2016 SOFYA GUTIERREZ, AMERICO Flynn Ot G47.33 OBSTRUCTIVE SLEEP APNEA (ADULT) (PEDIATR 11/08/2016 SOFYA GUTIERREZ, AMERICO Flynn Ot G47.33 OBSTRUCTIVE SLEEP APNEA (ADULT) (PEDIATR 02/13/2017 SELENA MARIANO MD Ot 397.0 TRICUSPID VALVE DISEASE 02/13/2017 SELENA MARIANO MD Ot 424.0 MITRAL VALVE DISORDER 02/13/2017 SELENA MARIANO MD Ot 785.1 PALPITATIONS 02/13/2017 SELENA MARIANO MD Ot 786.50 CHEST PAIN NOS 02/13/2017 YUAN OVALLE DO Ot 719.46 JOINT PAIN-L/LEG 02/13/2017 YUAN OVALLE DO Ot V72.63 PRE-PROCEDURAL LABORATORY EXAMINATION 02/13/2017 YUAN OVALLE DO Ot V72.81 [id number] CARDIOVASCULAR 02/13/2017 YUAN OVALLE DO Ot V72.83 EXAM PRE-OPERATIVE NEC 02/13/2017 YUAN OVALLE DO Ot V72.84 EXAM PRE-OPERATIVE NOS 02/13/2017 YUAN OVALLE DO Ot V74.8 SCREEN-BACTERIAL DIS NEC 02/13/2017 YUAN OVALLE DO Ot 729.81 SWELLING OF LIMB 02/13/2017 Ot 244.9 HYPOTHYROIDISM NOS 02/13/2017 Ot 272.4 HYPERLIPIDEMIA NEC/NOS 02/13/2017 Ot 401.9 HYPERTENSION NOS 02/13/2017 Ot 785.1 PALPITATIONS 02/13/2017 SELENA MARIANO MD Ot 272.4 HYPERLIPIDEMIA NEC/NOS 02/13/2017 SELENA MARIANO MD Ot 397.0 TRICUSPID VALVE DISEASE 02/13/2017 SELENA MARIANO MD Ot 401.9 HYPERTENSION NOS 02/13/2017 SELENA MARIANO MD Ot 424.0 MITRAL VALVE DISORDER 02/13/2017 SELENA MARIANO MD Ot 426.4 RT BUNDLE BRANCH BLOCK 02/13/2017 SELENA MARIANO MD Ot 786.50 CHEST PAIN NOS 02/13/2017 SELENA MARIANO MD Ot 401.9 HYPERTENSION NOS 02/13/2017 SELENA MARIANO MD Ot 414.00 CORON ATHEROSCLER NOS TYPE VESSEL, NATIV 02/13/2017 SELENA MARIANO MD Ot 427.31 ATRIAL FIBRILLATION 02/13/2017 SELENA MARIANO MD Ot 428.0 CONGESTIVE HEART FAILURE NOS 02/13/2017 KIERRA GUTIERREZ, BRANDNI Flynn Ot 346.90 MIGRAINE UNSPECIFIED W/O INTRACT MGRN W/ 02/13/2017 RUFINA DPM, ALBERT Q Ot G57.51 TARSAL TUNNEL SYNDROME, RIGHT LOWER LIMB 02/13/2017 RUFINA DPM, ALBERT Q Ot M25.474 EFFUSION, RIGHT FOOT 03/15/2017 BARTOLOME LUCIANO APRN Ot S62.101D FX UNSP CARPAL BONE, RIGHT WRIST, SUBS F 05/02/2017 ANGELA CHEN Ot E78.2 MIXED HYPERLIPIDEMIA 05/02/2017 ANGELA CHEN Ot I10 ESSENTIAL (PRIMARY) HYPERTENSION 05/02/2017 ANGELA CHEN Ot I25.10 ATHSCL HEART DISEASE OF [place] CORONARY 05/02/2017 ANGELA CHEN Ot I45.10 UNSPECIFIED RIGHT BUNDLE- BRANCH BLOCK Procedures Code Description Performed By Performed On 00.81 JAYY OF KNEE REPLACEMENT, TIBIAL COMPON 04/01/2014 00.82 JAYY OF KNEE REPLACEMENT, FEMORAL COMPO 04/01/2014 Results Test Result Range Automated blood complete blood count (hemogram) panel - 05/17/17 09:02 Blood leukocytes automated count (number/volume) 6.6 10*3/ uL 4.3-11.0 Blood erythrocytes automated count (number/volume) 4.38 10*6 /uL 4.35-5.85 Venous blood hemoglobin measurement (mass/volume) 13.8 g/dL 11.5-16.0 Blood hematocrit (volume fraction) 41 % 35-52 Automated erythrocyte mean corpuscular volume 95 [foz_us] 80-99 Automated erythrocyte mean corpuscular hemoglobin (mass per erythrocyte) 32 pg 25-34 Automated erythrocyte mean corpuscular hemoglobin concentration measurement ( mass/volume) 33 g/dL 32-36 Automated erythrocyte distribution width ratio 12.3 % 10.0-14.5 Automated blood platelet count (count/volume) 286 10*3/uL 130-400 Automated blood platelet mean volume measurement 10.4 [foz_ us] 7.4-10.4 PT panel in platelet poor plasma by coagulation assay - 05/17/17 09:02 Prothrombin time (PT) in platelet poor plasma by coagulation assay 11.8 s 12.2-14.7 INR in platelet poor plasma or blood by coagulation assay 0.9 0.8-1.4 Activated partial thromboplastin time (aPTT) in platelet poor plasma bycoagulation assay - 05/17/17 09:02 Activated partial thromboplastin time (aPTT) in platelet poor plasma bycoagulation assay 29 s 24-35 Comprehensive metabolic panel - 05/17/17 09:02 Serum or plasma sodium measurement (moles/volume) 145 mmol/ L 135-145 Serum or plasma potassium measurement (moles/volume) 3.8 mmol/L 3.6-5.0 Serum or plasma chloride measurement (moles/volume) 106 mmol /L 98-107 Carbon dioxide 27 mmol/L 21-32 Serum or plasma anion gap determination (moles/volume) 12 mmol/L 5-14 Serum or plasma urea nitrogen measurement (mass/volume) 7 mg /dL 7-18 Serum or plasma creatinine measurement (mass/volume) 0.66 mg /dL 0.60-1.30 Serum or plasma urea nitrogen/creatinine mass ratio 11 0-20 Serum or plasma creatinine measurement with calculation of estimated glomerular filtration rate > NRG Serum or plasma glucose measurement (mass/volume) 91 mg/dL 70-105 Serum or plasma calcium measurement (mass/volume) 9.2 mg/dL 8.5-10.1 Serum or plasma total bilirubin measurement (mass/volume) 0.3 mg/dL 0.1-1.0 Serum or plasma alkaline phosphatase measurement (enzymatic activity/volume) 80 U/L 40-136 Serum or plasma aspartate aminotransferase measurement (enzymatic activity/ volume) 16 U/L 5-34 Serum or plasma alanine aminotransferase measurement (enzymatic activity/volume ) 14 U/L 0-55 Serum or plasma protein measurement (mass/volume) 6.8 g/dL 6.4-8.2 Serum or plasma albumin measurement (mass/volume) 4.0 g/dL 3.2-4.5 Lipid 1996 panel - 05/17/17 09:02 Serum or plasma triglyceride measurement (mass/volume) 100 mg/dL <150 Serum or plasma cholesterol measurement (mass/volume) 169 mg /dL < 200 Serum or plasma cholesterol in HDL measurement (mass/volume) 74 mg/dL 40-60 Cholesterol in LDL [mass/volume] in serum or plasma by direct assay 69 mg/dL 1-129 Serum or plasma cholesterol in VLDL measurement (mass/volume) 20 mg/dL 5-40 Methicillin resistant Staphylococcus aureus (MRSA) screening culture - 09:02 Methicillin resistant Staphylococcus aureus (MRSA) screening culture NEG NRG Encounters ACCT No. Visit Date/Time Discharge Status Pt. Type Provider Facility Loc./Unit Complaint [id number] 05/17/2017 08:35:00 2016 15:25:00 DIS Outpatient GARCÍA GUTIERREZ, SELENA Geiger [facility] CATH ABN STRESS,CAD,HTN,HLP [id number] 03/07/2017 09:43:00 2016 13:50:00 DIS Outpatient BARTOLOME LUCIANO APRN [facility] REHAB S/P R WRIST ORIF [id number] 11/01/2016 20:10:00 2015 06:05:00 DIS Outpatient AMERICO COWART MD [facility] SLEEP SNORING, HTN, INSOMINA, EDS, MOOD DISORDER, DAVIS [id number] 03/28/2016 12:39:00 2015 11:40:00 DIS Outpatient BARTOLOME LUCIANO APRN [facility] REHAB RRF MIDDLE PHALANX FX [id number] 12/22/2015 08:34:00 2015 15:23:00 DIS Outpatient EDWARD SANCHEZ MD [facility] REHAB R TKA REVISION W/ POST OP FALLS [id number] 11/23/2015 12:47:00 2014 00:01:00 DIS Outpatient EDWARD SANCHEZ MD [facility] REHAB R TKA REVISION W/ POST OP FALLS [id number] 10/14/2015 11:04:00 2014 13:12:00 DIS Emergency NIRMAL JACKSON MD [facility] ER FALL/HEAD INJ [id number] 08/24/2015 10:23:00 2014 00:01:00 DIS Outpatient EDWARD SANCHEZ MD [facility] REHAB R TKA REVISION W/ POST OP FALLS [id number] 03/21/2015 07:46:00 2014 23:59:59 CLS Outpatient BRANDIN LOZADA MD [facility] RT MEMORY LOSS, HEADACHE [id number] 03/08/2015 08:48:00 2014 09:55:00 DIS Outpatient EDWARD SANCHEZ MD [facility] REHAB BILATERAL TKR [id number] 12/22/2014 08:05:00 2014 16:15:00 DIS Outpatient SELENA MARIANO MD [facility] CATH ABNORMAL STRESS, CAD,CP,HTN,HLP [id number] 12/13/2014 07:20:00 2014 23:59:59 CLS Outpatient SELENA MARIANO MD [facility] CARD CP,HTN,HLP [id number] 10/28/2014 08:35:00 2013 23:59:59 CLS Outpatient SELENA MARIANO MD [facility] CARD CP,HTN,HLP [id number] 08/06/2014 16:19:00 2013 17:00:00 DIS Outpatient EDWARD SANCHEZ MD [facility] REHAB S/P R TKR [id number] 07/20/2014 08:12:00 2013 00:01:00 DIS Outpatient EDAWRD SANCHEZ MD [facility] REHAB S/P R TKR [id number] 07/01/2014 12:24:00 2013 15:40:00 DIS Emergency BRIANNE JOHNSON [facility] ER FALL/HEAD INJURY [id number] 01/15/2014 08:54:00 2013 00:01:00 DIS Outpatient SELENA MARIANO MD [facility] CARD PALPITATION,HTN [id number] 04/13/2014 12:11:00 2013 23:59:59 CLS Outpatient GALTERYUAN BATEMAN DO [facility] RAD LEG SWELLING [id number] 04/01/2014 10:03:00 2013 13:50:00 DIS Inpatient GALTERYUAN BATEMAN DO [facility] SURGICAL RIGHT KNEE PAIN;FAILED DEVICE; INSTABILITY [id number] 03/23/2014 13:21:00 2013 23:59:59 CLS Outpatient GALTERYUAN BATEMAN DO [facility] PREOP RIGHT KNEE PAIN;FAILED DEVICE;INSTABILITY [id number] 12/01/2013 12:41:00 2013 14:57:00 DIS Outpatient LUANNE BHARDWAJ DO [facility] REHAB LUMBAR DDD, LUMBAR RADICULOPATHY [id number] 04/07/2013 08:12:00 2012 23:59:59 CLS Outpatient SELENA MARIANO MD [facility] CARD PALPITATIONS, CP [id number] 05/01/2017 07:51:00 ACT Outpatient ANGELA EMMANUEL [facility] CARD I25.10,I10,E78.2 [id number] 04/29/2017 08:16:00 ACT Outpatient ANGELA EMMANUEL [facility] CARD I25.10,I10,E78.2 [id number] 11/15/2015 08:02:00 ACT Outpatient RUFINA DPM, ALBERT Q [facility] RAD TARSAL TUNNEL SYNDROME [id number] 04/16/2014 09:00:00 Document Registration [id number] 04/24/2012 13:22:00 Document Registration [id number] 04/23/2012 11:33:00 Document Registration [id number] 11/07/2011 10:53:00 Document Registration [id number] 08/20/2011 05:33:00 Document Registration [id number] 08/17/2011 08:45:00 Document Registration [id number] 08/15/2011 15:09:00 Document Registration [id number] 08/13/2011 09:40:00 Document Registration [id number] 08/07/2011 08:26:00 Document Registration
--- OUTSIDE RECORDS SUMMARY | 2017-05-20 14:41 | XMS REPORT ---
Author Author KEVIN MCKEON Organization [employer] Address Unknown Phone Unavailable Care Team Providers Care Bottle Assembler Name Role Phone KEVIN MCKEON CP Unavailable Allergies, Adverse Reactions, Alerts Substance Reaction Event Type Morphine Sulfate Info Not Available Drug Allergy Problems Problem Type Condition Code Onset Dates Condition Status Assessment Dental caries K02.9 Active Medications Medication Code System Code Instructions Start Date End Date Status Dosage Benztropine Mesylate [facility] [address]-22 not defined Topamax [facility] [address]-94 not defined Potassimin [facility] [address]-04 not defined Sertraline HCl [facility] [address]-93 not defined Wellbutrin [facility] [address]-58 not defined Simvastatin [facility] [place] [address]-66 not defined Haloperidol [facility] [address]-54 not defined Viibryd [facility] [address]-50 not defined Aspir-[address] [facility] [address]-14 not defined Loratadine [facility] [address]-43 not defined Metformin HCl [facility] [address]-35 not defined Lasix [facility] [address]-88 not defined Topiramate [facility] [address]-43 not defined Clonazepam [facility] [address]-30 not defined Metoprolol Tartrate [facility] [address]-96 not defined Gabapentin ND 0 not defined Procedures Procedure Coding System Code Date EXTRAC ERUPTED TOOTH/EXPOSED ROOT CPT-4 D7140 May 10, 2016 Vital Signs Date/Time: May 10, 2016 Blood Pressure Diastolic 77 mmHg Blood Pressure Systolic 117 mmHg Results No Known Results Summary Purpose [employer] Submission
--- OUTSIDE RECORDS SUMMARY | 2017-05-20 14:41 | XMS REPORT ---
Author Author KEVIN MCKEON Organization [employer] Address Unknown Phone Unavailable Care Team Providers Care Surgical Specialist Name Role Phone KEVIN MCKEON CP Unavailable Allergies No Known Allergies Problems Problem Type Condition Code Onset Dates Condition Status Assessment Dental examination Z01.20 Active Medications Medication Code System Code Instructions Start Date End Date Status Dosage Amoxicillin [facility] [address]-19 500 MG Orally 1 hr prior to [place] May 03, 2016 May 04, 2016 4 capsule Procedures Procedure Coding System Code Date INTRAORL-PERIAPICAL 1 FILM 94890 CPT-4 D0220 May 10, 2016 LTD ORAL EVALUATION - PROBLEM FOCUS CPT-4 D0140 May 10, 2016 Vital Signs Date/Time: May 03, 2016 Blood Pressure Diastolic 59 mmHg Blood Pressure Systolic 117 mmHg Results No Known Results Summary Purpose [employer] Submission
--- OUTSIDE RECORDS SUMMARY | 2017-05-20 14:41 | XMS REPORT ---
Author Author MAKENZIE REYES Organization [employer] Address Unknown Phone Unavailable Care Team Providers Care Callisthenics Instructor Name Role Phone MAKENZIE REYES CP Unavailable Allergies No Known Allergies Problems Problem Type Condition ICD-9 Code Onset Dates Condition Status Assessment Dental examination V72.2 Active Medications No Known Medications Procedures Procedure Coding System Code Date INTRAORL-PERIAPICAL 1 FILM 47083 CPT-4 D0220 Jul 20, 2015 EXTRAC ERUPTED TOOTH/EXPOSED ROOT CPT-4 D7140 Jul 20, 2015 LTD ORAL EVALUATION - PROBLEM FOCUS CPT-4 D0140 Jul 20, 2015 Results No Known Results Summary Purpose [employer] Submission
== END 2017-05-17 15:25 | disposition home or self-care (01) ==
LOC: CATH 08:35 → ICU 10:48 → CATH 15:25
PROVIDERS: ATTEND Internal Medicine Cardiovascular Disease
DX: R94.39 Abnormal result of other cardiovascular function study (principal); I25.10 Atherosclerotic heart disease of native coronary artery without angina pectoris; I10 Essential (primary) hypertension; E78.5 Hyperlipidemia, unspecified; K21.9 Gastro-esophageal reflux disease without esophagitis; E11.9 Type 2 diabetes mellitus without complications; J45.909 Unspecified asthma, uncomplicated; E03.9 Hypothyroidism, unspecified; F41.8 Other specified anxiety disorders; Z79.899 Other long term (current) drug therapy
CPT/HCPCS: 36221; 36415; 71010; 80053; 80061; 85027; 85610; 85730; 87081; 93005; 93458

== ENCOUNTER 2017-11-22 12:53 | Outpatient (RCR) | payer MEDICARE ==
[~2017-11-22 12:53] MED LIST changes: +BUTA1CAP45 PO; +CARI4.5C PO; +DIVA250T2 PO; +FERR-84 PO; +FURO20TA4 PO; +GABA800T2 PO; +IPRA4AER IH; +IRON1CAP21 PO; +LEVO88TA54 PO; +LUBI24CA6 PO; +MULT-35 PO; +ONDA8TAB6 PO; +PANT40TA2 PO; +PARO30TA3 PO; +TRIH5TAB2 PO
== END 2017-12-04 14:04 | disposition home or self-care (01) ==
PROVIDERS: ATTEND Nurse Practitioner
DX: Z47.89 Encounter for other orthopedic aftercare (principal)

== ENCOUNTER 2018-04-30 10:19 | Outpatient (RCR) | payer MEDICARE | END 2018-06-30 | disposition home or self-care (01) | PROVIDERS: ATTEND Psychiatry & Neurology Neurology | DX: R53.1 Weakness (principal); R51 Headache; E11.9 Type 2 diabetes mellitus without complications; R26.9 Unspecified abnormalities of gait and mobility ==

== ENCOUNTER → 2018-08-15 | Outpatient (CLI) | payer MEDICARE ==
--- NOTE | 2018-08-15 10:32 | Diagnostic Imaging Report ---
CLINICAL INDICATION: Patient with sinus pressure issues. EXAM: Axial CT scan of the maxillofacial structures without IV contrast. Coronal reformations are performed. COMPARISON: None. FINDINGS: PARANASAL SINUSES: FRONTAL: Unremarkable. ETHMOID: There is moderate mucosal thickening in the residual ethmoid sinus cavity. MAXILLARY: There is minimal mucosal thickening involving both maxillary sinuses. SPHENOID: Unremarkable. OTHER PARANASAL SINUS FINDINGS: There is bony thickening and sclerosis involving the paranasal sinuses. There is postop changes to the paranasal sinuses with bilateral medial maxillary wall antrostomies, bilateral uncinectomies, bilateral middle nasal turbinates, partial inferior left nasal turbinectomy, partial ethmoidectomies, and suspected septoplasty changes. NASAL SEPTUM: There is roughly 4 mm of rightward nasal septal deviation. There is a nasal septal defect seen posteriorly measuring roughly 10 mm in craniocaudal dimension. A nasal septal defect measures roughly 3.3 cm in AP dimension. VISUALIZED TEMPORAL BONE STRUCTURES: Unremarkable. BONY STRUCTURES: Unremarkable. EXTRACRANIAL SOFT TISSUE/ ORBITS: Unremarkable. IMPRESSION: 1: There is mild to moderate paranasal sinus disease involving the ethmoid sinus and bilateral maxillary sinus. There is associated chronic bony sinusitis changes involving the paranasal sinuses. 2: There is paranasal postop changes, as described above. 3: There is a large nasal septal defect and rightward nasal septal deviation, as described above. Dictated by: Dictated on workstation # [id number]
== END ==
LOC: RAD 08:39
PROVIDERS: ATTEND Otolaryngology Otolaryngology/Facial Plastic Surgery
DX: J32.2 Chronic ethmoidal sinusitis (principal); J34.2 Deviated nasal septum; Z98.890 Other specified postprocedural states
CPT/HCPCS: 70486

== ENCOUNTER → 2019-04-02 | Outpatient (CLI) | payer MEDICARE ==
[~2019-04-02] MED LIST changes: +GABA800T10 PO; -GABA800T2 PO
[2019-04-02 10:33] LABS: BASOPHILS % (AUTO) 0 % (0-10); EOSINOPHILS # (AUTO) 0.1 10^3/uL (0.0-0.3); EOSINOPHILS % (AUTO) 2 % (0-10); HEMATOCRIT 43 % (35-52); HEMOGLOBIN 13.9 G/DL (11.5-16.0); LYMPHOCYTES # (AUTO) 2.3 X 10^3 (1.0-4.0); LYMPHOCYTES % (AUTO) 42 % (12-44); MEAN CORPUSCULAR HEMOGLOBIN 30 PG (25-34); MEAN CORPUSCULAR HGB CONC 32 G/DL (32-36); MEAN CORPUSCULAR VOLUME 95 FL (80-99); MEAN PLATELET VOLUME 10.6 FL (7.4-10.4); MONOCYTES # (AUTO) 0.5 X 10^3 (0.0-1.0); MONOCYTES % (AUTO) 8 % (0-12); NEUTROPHILS # (AUTO) 2.5 X 10^3 (1.8-7.8); NEUTROPHILS % (AUTO) 47 % (42-75); PLATELET COUNT 241 10^3/uL (130-400); RED CELL DISTRIBUTION WIDTH 13.2 % (10.0-14.5); WHITE BLOOD COUNT 5.4 10^3/uL (4.3-11.0)
[2019-04-02 10:51] LABS: ALANINE AMINOTRANSFERASE 20 U/L (0-55); ALKALINE PHOSPHATASE 83 U/L (40-136); BILIRUBIN,TOTAL 0.4 MG/DL (0.1-1.0); BUN/CREATININE RATIO 11; CALCIUM 9.3 MG/DL (8.5-10.1); CARBON DIOXIDE 29 MMOL/L (21-32); CHLORIDE 106 MMOL/L (98-107); CHOLESTEROL 164 MG/DL (< 200); CREATININE SERUM 0.74 MG/DL (0.60-1.30); GFR ESTIMATED > 60; GLUCOSE 99 MG/DL (70-105); HDL CHOLESTEROL 73 MG/DL (40-60); MAGNESIUM 2.2 MG/DL (1.8-2.4); POTASSIUM 3.9 MMOL/L (3.6-5.0); SODIUM 144 MMOL/L (135-145); TOTAL PROTEIN 6.7 GM/DL (6.4-8.2); TRIGLYCERIDES 110 MG/DL (<150); VLDL CHOLESTEROL 22 MG/DL (5-40)
[2019-04-02 10:53] LABS: ERYTHROCYTE SEDIMENTATION RATE 7 MM/HR (0-30)
== END ==
LOC: CARD 09:52
PROVIDERS: ATTEND Internal Medicine Cardiovascular Disease
DX: E78.5 Hyperlipidemia, unspecified (principal); R00.2 Palpitations; I25.10 Atherosclerotic heart disease of native coronary artery without angina pectoris; R42 Dizziness and giddiness; I10 Essential (primary) hypertension; E66.9 Obesity, unspecified; I34.0 Nonrheumatic mitral (valve) insufficiency
CPT/HCPCS: 36415; 80053; 80061; 83735; 84443; 85025; 85652; 93306

== ENCOUNTER 2019-04-07 08:39 | Day surgery (SDC) | payer MEDICARE ==
[~2019-04-07] VITALS: Ht 181.6 cm; Wt 123.4 kg
[2019-04-07] MEDS ORDERED: LIDOCAINE 1% INJ 20 ML 20 ML VIAL ONE (08:43)
--- OUTSIDE RECORDS SUMMARY | 2019-04-07 08:44 | XMS REPORT ---
Author Author CAMMIE Herbert Organization [facility] Address Unknown Care Team Providers Care Keycase Assembler Name Role Phone CAMMIE Herbert Unavailable PROBLEMS Unknown Problems ALLERGIES Substance Reaction Event Type Date Status Morphine Sulfate Unknown Drug Allergy Nov, Active Naproxen Unknown Non Drug Allergy Nov, Active SOCIAL HISTORY No smoking Hx information available PLAN OF CARE VITAL SIGNS Blood pressure systolic 145 mmHg 2016-12-11 Blood pressure diastolic 78 mmHg 2016-12-11 MEDICATIONS Medication Instructions Dosage Frequency Start Date End Date Duration Status Klonopin 0.5 MG Active Paxil 20 MG Active Amitiza 24 MCG Active Invega 9 MG Active Synthroid 100 MCG Active Potassium Active Loratadine 10 MG Active Zanaflex Active Spiriva HandiHaler Active Zocor 40 MG Active Neurontin 600 MG Active Ferrex 150 150 MG Active Aspir-81 Active Zofran 8 MG 1 tablet Active Toprol XL 25 MG Active Protonix 40 MG Active Multi Vitamin Daily Active Carafate 1 GM Active ZyrTEC Active RESULTS No Results PROCEDURES Procedure Date Ordered Related Diagnosis Body Site EXTRAC ERUPTED TOOTH/EXPOSED ROOT Dec 11, 2016 EXTRAC ERUPTED TOOTH/EXPOSED ROOT Dec 11, 2016 EXTRAC ERUPTED TOOTH/EXPOSED ROOT Dec 11, 2016 EXTRAC ERUPTED TOOTH/EXPOSED ROOT Dec 11, 2016 EXTRAC ERUPTED TOOTH/EXPOSED ROOT Dec 11, 2016 EXTRAC ERUPTED TOOTH/EXPOSED ROOT Dec 11, 2016 IMMUNIZATIONS No Known Immunizations
--- OUTSIDE RECORDS SUMMARY | 2019-04-07 08:44 | XMS REPORT | Clinical Summary ---
Author Author [facility] Organization [facility] Address Unknown Phone Unavailable Care Team Providers Care Structural Technician Name Role Phone Char Gonzalez MD PCP Source Comments Some departments are not documenting in the electronic medical record. If you do not see the information that you expected, contact Release of Information in the Health Information Management department at [phone] for further assistance in locating additional records.[facility] Allergies Comments Active Allergy Reactions Severity Noted Date Morphine ITCHING Low 03/06/2018 Naproxen HIVES Medium 03/06/2018 Medications End Date Status Medication Sig Dispensed Refills Start Date Active paliperidone ER(+) Take 9 mg by 0 (INVEGA) 6 mg tablet mouth daily. Active trihexyphenidyl (ARTANE) Take 5 mg by 0 5 mg tablet mouth three times daily. Active levothyroxine (SYNTHROID) Take 88 mcg 0 88 mcg tablet by mouth daily 30 minutes before breakfast. Active sucralfate (CARAFATE) 1 Take 1 g by 0 gram tablet mouth every 6 hours. Take on an empty stomach. Active linaclotide(+) (LINZESS) Take 145 mcg 0 145 mcg cap capsule by mouth daily. Every mon, wed and sat Active loratadine (CLARITIN) 10 Take 10 mg by 0 mg tablet mouth at bedtime daily. Active simvastatin (ZOCOR) 40 mg Take 40 mg by 0 tablet mouth at bedtime daily. Active potassium chloride SR Take 10 mEq 0 (K-DUR) 10 mEq tablet by mouth daily. Take with a meal and a full glass of water. Active pantoprazole DR Take 40 mg by 0 (PROTONIX) 40 mg tablet mouth daily. Active metoprolol XL (TOPROL XL) Take 25 mg by 0 25 mg extended release mouth daily. tablet Active gabapentin (NEURONTIN) Take 800 mg 0 800 mg tablet by mouth three times daily. Active divalproex (DEPAKOTE EC) Take 500 mg [address] tablet by mouth three times daily. Take with food. Active aspirin 81 mg chewable Chew 81 mg by 0 tablet mouth daily. Take with food. Active cetirizine (ZYRTEC) 10 mg Take 10 mg by 0 tablet mouth every morning. Active tiotropium bromide Inhale 2 0 (SPIRIVA RESPIMAT) 1.25 puffs by mcg/actuation inhaler mouth into the lungs daily. Active budesonide/formoterol Inhale 2 0 (SYMBICORT HFA) 80-4.5 puffs by mcg/actuation inhalation mouth into the lungs twice daily. Active albuterol (PROAIR HFA) 90 Inhale 2 0 mcg/actuation inhaler puffs by mouth into the lungs twice daily. Shake well before use. Active magnesium oxide (MAG-OX) Take 1 tablet 30 tablet 6 400 mg tablet by mouth 8 daily. Active dexlansoprazole (+) Take 60 mg by 0 (DEXILANT) 60 mg capsule mouth daily. Active duloxetine DR (CYMBALTA) Take 60 mg by 0 60 mg capsule mouth daily. Active OLANZapine (ZYPREXA) 20 Take 20 mg by 0 mg tablet mouth at bedtime daily. Active mirtazapine (REMERON) 30 Take 30 mg by 0 mg tablet mouth at bedtime daily. Active ranitidine(+) (ZANTAC) Take 300 mg 0 300 mg tablet by mouth daily. Active levETIRAcetam (KEPPRA) Take 750 mg 0 750 mg tablet by mouth twice daily. Active Problems Problem Noted Date Chronic maxillary sinusitis 06/20/2018 Chronic daily headache 03/06/2018 Diabetic polyneuropathy 03/06/2018 Generalized weakness 03/06/2018 Gait disturbance 03/06/2018 Family History Medical History Relation Name Comments Cancer Brother smokint Depression Brother COPD Brother Depression Brother Diabetes Type II Brother Cancer Father smoker Atrial Fibrillation Mother Depression Mother Heart Disease Mother Heart Failure Mother Hypertension Mother Cancer Sister thyroid Depression Sister Heart Disease Sister Hypertension Sister Heart Disease Sister Relation Name Status Comments Brother Brother Alive Father Mother Alive Sister Alive Sister Alive Social History Date Tobacco Use Types Packs/Day Years Used Never Smoker Smokeless Tobacco: Never Used Alcohol Use Drinks/Week oz/Week Comments No history of heavy drinking 3 years Sex Assigned at Date Recorded Not on file Industry Job Start Date Occupation Not on file Not on file Not on file Travel End Travel History Travel Start No recent travel history available. Last Filed Vital Signs Time Taken Vital Sign Reading 12/22/2018 11:20 AM NARRATIVE WRITER Blood Pressure 125/76 12/22/2018 11:20 AM NARRATIVE WRITER Pulse 78 05/22/2018 3:21 PM CDT Temperature 37.2 C (99 F) 06/20/2018 10:54 AM CDT Respiratory Rate 16 12/22/2018 11:20 AM NARRATIVE WRITER Oxygen Saturation 96% - Inhaled Oxygen - Concentration 12/22/2018 11:20 AM NARRATIVE WRITER Weight 124.7 kg (275 lb) 12/22/2018 11:20 AM NARRATIVE WRITER Height 180.3 cm (5' 10.98") 12/22/2018 11:20 AM NARRATIVE WRITER Body Mass Index 38.37 Plan of Treatment Health Maintenance Due Date Last Done Comments HEPATITIS C SCREENING 1963 PHYSICAL (COMPREHENSIVE) 1970 EXAM HIV SCREENING 1978 DILATED EYE EXAM 1981 DTAP/TDAP VACCINES (1 - 1981 Tdap) FOOT EXAM 1981 MICROALBUMIN 1981 PNEUMONIA VACCINE (DM) 1981 CERVICAL CANCER SCREENING 1993 BREAST CANCER SCREENING 2003 COLORECTAL CANCER 2013 SCREENING SHINGLES RECOMBINANT 2013 VACCINE (1 of 2) HBA1C 09/06/2018 03/07/2018 INFLUENZA VACCINE 08/25/2019 Results Not on filefrom Last 3 Months Insurance Type Payer Benefit Subscriber ID Effective Phone Address Plan / Dates Group Medicare MEDICARE MEDICARE xxxxxxxxxxx 2004-P PART A AND resent B Advance Directives Patient has advance care planning documents on file. For more information, please contact: [address] [address]
[2019-04-07] MEDS ORDERED: LIDOCAINE 1% INJ 20 ML 20 ML VIAL INJ ONE (08:45)
--- OUTSIDE RECORDS SUMMARY | 2019-04-07 08:49 | XMS REPORT | Continuity of Care Document ---
Author Organization Unknown Address Unknown Allergies Active Description Code Type Severity Reaction Onset Reported/Identified Relationship to Patient Clinical Status Yes MORPHINE MORPHINE UNKNOWN Yes NAPROSYN NAPROSYN MODERATE Yes MORPHINE UNKNOWN DERMATOLOGICAL - HIV Yes NAPROSYN MODERATE DERMATOLOGICAL - SAUMYA Yes morphine [id number] Drug Allergy Mild ITCHING 03/23/2014 Yes naproxen [id number] Drug Allergy Mild ITCHING 03/23/2014 Medications Medication Packaging Start Date Stop Date Route Dosage Sig HYDROCODONE/APAP 5MG/325MG TAB 5 MG/325MG (DANILO-TAB 5/325) TAB 11/10/2016 11/20/2016 Q4H&0200,0600,1000,1400,1800,2200 NORMAL SALINE 1000CC IV BAG INJ 0.9 % (NS 1000CC IV BAG) ml 11/25/2016 12/10/2016 CONTINUOUSEVERY 0 Hour LACTATED RINGERS 1000CC IV BAG INJ ml 07/15/2017 07/16/2017 CONTINUOUSEVERY 0 Hour BUTALBIT/APAP/CAFF TAB (FIORICET) tab 07/15/2017 07/15/2017 ONCE&1308 LACTATED RINGERS 1000CC IV BAG INJ ml 07/07/2018 07/14/2018 CONTINUOUSEVERY 0 Hour ACETAMINOPHEN ORAL TABLET 325mg(Tylenol) MG 01/05/2019 02/03/2019 PRN EVERY 6 Hour ALUM/MAG/SIMETH 30CC LIQ (MYLANTA PLUS) cc 01/05/2019 01/14/2019 PRN Q4H POLYETHYLENE GLYCOL POWDER UD PWD (MIRALAX 17GM UNIT DOSE PAKS) gm 01/05/2019 01/14/2019 PRN Q3H RANITIDINE TAB 150 MG (ZANTAC) MG 01/05/2019 02/03/2019 BID&0800,2000 POTASSIUM CHLORIDE TAB 20 MEQ (K-DUR) MEQ 01/05/2019 02/03/2019 QAM&0800 CALMOSEPTINE OINT TUBE (RISAMINE OINT) geovanni 01/05/2019 01/11/2019 PRN QID LUBIPROSTONE CAP 24 MCG (AMITIZA) MCG 01/05/2019 02/03/2019 QAM&0800 DULOXETINE CAP 30 MG (CYMBALTA) MG 01/05/2019 02/03/2019 QAM&0800 FUROSEMIDE TAB 40 MG (LASIX) MG 09/201902/03/2019 QAM&0800 LOPERAMIDE CAP 2 MG (IMMODIUM) MG 01/05/2019 01/11/2019 PRN QID MILK OF [place] ml 01/05/2019 02/03/2019 PRN BID METOPROLOL XR TAB 25 MG (TOPROL XL) MG 01/05/2019 02/03/2019 Daily&0900 DULOXETINE CAP 30 MG (CYMBALTA) MG 01/05/2019 02/03/2019 Daily&0900 OLANZAPINE TAB 10 MG (ZYPREXA) MG 01/05/2019 02/03/2019 Daily&0900 BISACODYL SUPPOS 10 MG (DULCOLAX SUPPOS) MG 01/05/2019 01/11/2019 PRN Daily LEVOTHYROXINE TAB 88 MCG (SYNTHROID) MCG 01/05/2019 02/03/2019 Daily&0900 DIVALPROEX ER TAB 500 MG (DEPAKOTE ER) MG 01/05/2019 01/05/2019 ONCE&0946 TRIHEXYPHENIDYL TAB 2 MG (ARTANE) MG 01/05/2019 01/05/2019 ONCE&0946 TRIHEXYPHENIDYL TAB 2 MG (ARTANE) MG 01/05/2019 01/05/2019 ONCE&1050 GABAPENTIN TAB 800 MG (NEURONTIN) MG 01/05/2019 02/04/2019 TID&0800,1400,2000 DIVALPROEX ER TAB 500 MG (DEPAKOTE ER) MG 01/05/2019 02/04/2019 TID&0800,1400,2000 TRIHEXYPHENIDYL TAB 2 MG (ARTANE) MG 01/05/2019 02/04/2019 TID&0800,1400,2000 OLANZAPINE TAB 10 MG (ZYPREXA) MG 01/05/2019 02/04/2019 BID&0800,2000 SIMVASTATIN TAB 40 MG (ZOCOR) MG 02/03/2019 QPM&2000 TRIHEXYPHENIDYL TAB 2 MG (ARTANE) MG 01/05/2019 02/04/2019 BID&0800,2000 DIVALPROEX ER TAB 500 MG (DEPAKOTE ER) MG 01/05/2019 01/05/2019 QHS&2100 OLANZAPINE TAB 10 MG (ZYPREXA) MG 01/05/2019 02/03/2019 QHS&2100 MIRTAZAPINE TAB 15 MG (REMERON) MG 01/05/2019 02/03/2019 QHS&2100 MELATONIN TAB 3 MG (MELATONIN) MG 01/05/2019 01/11/2019 QHS&2100 FUROSEMIDE TAB 40 MG (LASIX) MG 10/201902/05/2019 PRN QAM DIVALPROEX ER TAB 500 MG (DEPAKOTE ER) MG 01/06/2019 02/03/2019 QHS&2100 ACETAMINOPHEN TAB 500 MG (TYLENOL) MG 01/09/2019 01/09/2019 PRN ONCE TRIHEXYPHENIDYL TAB 2 MG (ARTANE) MG 01/09/2019 01/23/2019 BID&0800,2000 DIVALPROEX ER TAB 500 MG (DEPAKOTE ER) MG 01/10/2019 02/08/2019 QHS&2100 MIRTAZAPINE TAB 15 MG (REMERON) MG 01/11/2019 01/25/2019 PRN QHS TRAZODONE TAB 50 MG (DESYREL) MG 02/10/2019 QHS&2100 SALINE NASAL MIST LIQ (OCEAN SPRAY) SPRAYS 01/13/2019 01/22/2019 BID&0800,2000 DIVALPROEX ER TAB 500 MG (DEPAKOTE ER) MG 02/04/2019 03/05/2019 QHS&2100 Problems Date Dx Coded Attending Type Code Diagnosis Diagnosed By 10/24/1139 BARTOLOME LUCIANO APRN Ot S62.624D DISP FX OF MED PHALANX OF R RNG FNGR, 7T 10/24/1139 BARTOLOME LUCIANO APRN Ot W19.XXXD UNSPECIFIED FALL, SUBSEQUENT ENCOUNTER 10/24/1139 BARTOLOME LUCIANO APRN Ot 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, STORE OR MARKET PLACE 10/24/1139 BARTOLOME LUCIANO APRN Ot Y99.8 OTHER EXTERNAL CAUSE STATUS 10/24/1349 BARTOLOME LUCIANO INCOMING FREIGHT CLERK Ot S62.101D FX UNSP CARPAL BONE, RIGHT [...] PHYSICAL THERAPY NEC 04/25/2012 Ot 719.46 JOINT PAIN-L /LEG 04/25/2012 Ot V43.65 KNEE JOINT REPLACEMENT STATUS 04/25/2012 Ot V54.81 AFTERCARE FOLLOWING JOINT REPLACEMENT 04/25/2012 Ot V57.1 PHYSICAL THERAPY NEC 12/24/2013 LUANNE BHARDWAJ DO Ot 722.52 LUMB/LUMBOSAC DISC DEGEN 12/24/2013 LUANNE BHARDWAJ DO Ot V57.1 PHYSICAL THERAPY NEC 04/05/2014 YUAN OVALLE DO Ot 250.00 DIAB SY WO COMPL, TYPE II OR UNSPEC TY 04/05/2014 YUAN OVALLE DO Ot 276.8 HYPOPOTASSEMIA 04/05/2014 YUAN OVALLE DO Ot 300.00 ANXIETY STATE NOS 04/05/2014 YUAN OVALLE DO Ot 311 DEPRESSIVE DISORDER NEC 04/05/2014 YUAN OVALLE DO Ot 401.9 HYPERTENSION NOS 04/05/2014 YUAN OVALLE DO Ot 493.90 ASTHMA, UNSPECIFIED 04/05/2014 YUAN OVALLE DO Ot 996.42 DISLOCATION OF PROSTHETIC JOINT 04/05/2014 YUAN OVALLE DO Ot V43.65 KNEE JOINT REPLACEMENT STATUS 04/15/2014 SELENA MARIANO MD Ot 244.9 HYPOTHYROIDISM NOS 04/15/2014 SELENA MARIANO MD Ot 272.4 HYPERLIPIDEMIA NEC/NOS 04/15/2014 SELENA MARIANO MD Ot 401.9 HYPERTENSION NOS 04/15/2014 GARCÍA GUTIERREZ, SELENA Geiger Ot 785.1 PALPITATIONS 07/01/2014 BRIANNE JOHNSON Ot 244.9 HYPOTHYROIDISM NOS 07/01/2014 BRIANNE JOHNSON Ot 250.00 DIAB SY WO COMPL, TYPE II OR UNSPEC TY 07/01/2014 BRIANNE JOHNSON Ot 311 DEPRESSIVE DISORDER NEC 07/01/2014 BRIANNE JOHNSON Ot 493.90 ASTHMA, UNSPECIFIED 07/01/2014 BRIANNE JOHNSON Ot 564.1 IRRITABLE BOWEL SYNDROME 07/01/2014 BRIANNE JOHNSON Ot 696.1 OTHER PSORIASIS 07/01/2014 BRIANNE JOHNSON Ot 716.90 ARTHROPATHY NOS-UNSPEC 07/01/2014 BRIANNE JOHNSON Ot 785.1 PALPITATIONS 07/01/2014 BRIANNE JOHNSON Ot 847.0 SPRAIN OF NECK 07/01/2014 BRIANNE JOHNSON Ot 850.0 CONCUSSION W/O COMA 07/01/2014 BRIANNE JOHNSON Ot 924.8 MULTIPLE CONTUSIONS NEC 07/01/2014 BRIANNE JOHNSON Ot E849.0 ACCIDENT IN HOME 07/01/2014 BRIANNE JOHNSON Ot E888.1 FALL STRIKING OBJECT NEC 07/01/2014 BRIANNE JOHNSON Ot V58.66 LONG-TERM (CURRENT) USE OF ASPIRIN 08/03/2014 EDWARD SANCHEZ MD Ot V43.65 KNEE JOINT REPLACEMENT STATUS 08/03/2014 EDWARD SANCHEZ MD Ot V54.81 AFTERCARE FOLLOWING JOINT REPLACEMENT 08/03/2014 EDWARD SANCHEZ MD Ot V57.89 REHABILITATION PROC NEC 08/06/2014 EDWARD SANCHEZ MD Ot V43.65 KNEE JOINT REPLACEMENT STATUS 08/06/2014 EDWARD SANCHEZ MD Ot V54.81 AFTERCARE FOLLOWING JOINT REPLACEMENT 08/06/2014 EDWARD SANCHEZ MD Ot V57.89 REHABILITATION PROC NEC 10/14/2014 Ot 250.00 10/14/2014 Ot 397.0 10/14/2014 Ot 424.0 10/14/2014 Ot 729.5 10/14/2014 Ot 786.50 10/14/2014 Ot 250.00 10/14/2014 Ot 786.50 10/14/2014 Ot V58.66 10/14/2014 Ot V58.69 10/14/2014 Ot 786.50 10/14/2014 Ot V72.63 10/14/2014 Ot V72.81 10/14/2014 Ot 272.4 10/14/2014 GARCÍA GUTIERREZ, SELENA Geiger Ot 397.0 10/14/2014 SELENA MARIANO MD Ot 424.0 10/14/2014 GARCÍA GUTIERREZ, SELENA Geiger Ot 785.1 10/14/2014 SELENA MARIANO MD Ot 786.50 10/14/2014 YUAN OVALLE DO Ot 719.46 10/14/2014 GALYUAN GASPAR DO Ot V72.63 10/14/2014 GALYUAN GASPAR DO Ot V72.81 10/14/2014 GALYUAN GASPAR DO Ot V72.83 10/14/2014 GALYUAN GASPAR DO Ot V72.84 10/14/2014 YUAN OVALLE DO Ot V74.8 10/14/2014 GALYUAN GASPAR DO Ot 729.81 10/14/2014 Ot 244.9 10/14/2014 Ot 272.4 10/14/2014 Ot 401.9 10/14/2014 Ot 785.1 10/14/2014 GALYUAN GASPAR DO Ot 729.81 10/28/2014 Ot 250.00 10/28/2014 Ot 397.0 10/28/2014 Ot 424.0 10/28/2014 Ot 729.5 10/28/2014 Ot 786.50 10/28/2014 Ot 250.00 10/28/2014 Ot 786.50 10/28/2014 Ot V58.66 10/28/2014 Ot V58.69 10/28/2014 Ot 786.50 10/28/2014 Ot V72.63 10/28/2014 Ot V72.81 10/28/2014 Ot 272.4 10/28/2014 GARCÍA GUTIERREZ, SELENA Geiger Ot 397.0 10/28/2014 SELENA MARIANO MD Ot 424.0 10/28/2014 SELENA MARIANO MD Ot 785.1 10/28/2014 SELENA MARIANO MD Ot 786.50 10/28/2014 YUAN OVALLE DO Ot 719.46 10/28/2014 YUAN OVALLE DO Ot V72.63 10/28/2014 YUAN OVALLE DO Ot V72.81 10/28/2014 YUAN OVALLE DO Ot V72.83 10/28/2014 YUAN OVALLE DO Ot V72.84 10/28/2014 YUAN OVALLE DO Ot V74.8 10/28/2014 YUAN OVALLE DO [...] MARIANO MD Ot 414.01 CORONARY ATHEROSCLEROSIS OF [place] CORON 12/22/2014 SELENA MARIANO MD Ot 786.50 CHEST PAIN NOS 12/22/2014 SELENA MARIANO MD Ot V58.69 OTH MED,LT,CURRENT USE 12/22/2014 SELENA MARIANO MD Ot [...] 12/29/2014 Ot V72.81 12/29/2014 Ot 272.4 12/29/2014 SELENA MARIANO MD Ot 397.0 12/29/2014 SELENA MARIANO MD Ot 424.0 12/29/2014 SELENA MARIANO MD Ot 785.1 12/29/2014 SELENA MARIANO MD Ot 786.50 12/29/2014 YUAN OVALLE DO Ot 719.46 12/29/2014 YUAN OVALLE DO Ot V72.63 12/29/2014 YUAN OVALLE DO Ot V72.81 12/29/2014 YUAN OVALLE DO Ot V72.83 12/29/2014 YUAN OVALLE DO Ot V72.84 12/29/2014 YUAN OVALLE DO Ot V74.8 12/29/2014 YUAN OVALLE DO Ot 729.81 12/29/2014 Ot 244.9 12/29/2014 Ot 272.4 12/29/2014 Ot 401.9 12/29/2014 Ot 785.1 12/29/2014 SELENA MARIANO MD Ot 272.4 12/29/2014 GARCÍA GUTIERREZ, SELENA Geiger [...] GARCÍA GUTIERREZ, SELENA Geiger Ot 401.9 01/13/2015 GARCÍA GUTIERREZ, SELENA Geiger Ot 414.00 01/13/2015 GARCÍA GUTIERREZ, SELENA Geiger [...] 01/14/2015 SELENA MARIANO MD Ot 786.50 01/14/2015 YUAN OVALLE DO Ot 719.46 01/14/2015 YUAN OVALLE DO Ot V72.63 01/14/2015 SATTERLY DO, YUAN Troy Ot V72.81 01/14/2015 SATTERLY DO, YUAN rToy Ot V72.83 01/14/2015 SATTERLY DO, YUAN Troy Ot V72.84 01/14/2015 SATTERLY DO, YUAN Troy Ot V74.8 01/14/2015 SATTERLY DO, YUAN Troy Ot 729.81 01/14/2015 Ot 244.9 01/14/2015 Ot 272.4 01/14/2015 Ot 401.9 01/14/2015 Ot 785.1 01/14/2015 GARCÍA GUTIERREZ, SELENA J Ot 272.4 01/14/2015 GARCÍA GUTIERREZ, BASJIM J Ot 397.0 01/14/2015 GARCÍA GUTIERREZ, BASHAR J Ot 401.9 01/14/2015 GARCÍA GUTIERREZ, BASJIM J Ot 424.0 01/14/2015 GARCÍA GUTIERREZ, SELENA J Ot 426.4 01/14/2015 GARCÍA GUTIERREZ, SELENA J Ot 786.50 01/14/2015 GARCÍA GUTIERREZ, BASHAR J Ot 401.9 01/14/2015 GARCÍA GUTIERREZ, BASHAR J Ot 414.00 01/14/2015 GARCÍA GUTIERREZ, BASHAR J Ot 427.31 01/14/2015 GARCÍA GUTIERREZ, SELENA J Ot 428.0 01/14/2015 DANIEL GUTIERREZ, EDWARD Ambrosio Ot V43.65 01/14/2015 DANIEL GUTIERREZ, EDWARD Ambrosio Ot V54.81 01/14/2015 DANIEL GUTIERREZ, EDWARD C Ot V57.1 01/14/2015 DANIEL GUTIERREZ, EDWARD C Ot V43.65 01/14/2015 DANIEL GUTIERREZ, EDWARD C Ot V54.81 01/14/2015 DNAIEL GUTIERREZ, EDWARD C Ot V57.1 01/14/2015 DANIEL GUTIERREZ, EDWARD C Ot V43.65 01/14/2015 DANIEL GUTIERREZ, EDWARD C Ot V54.81 01/14/2015 DANIEL GUTIERREZ, EDWARD C Ot V57.1 02/15/2015 GARCÍA GUTIERREZ, SELENA J Ot 401.9 02/15/2015 GARCÍA GUTIERREZ, SELENA J Ot 414.00 02/15/2015 GARCÍA GUTIERREZ, BASHAR J Ot 427.31 02/15/2015 GARCÍA GUTIERREZ, SELENA Geiger Ot 428.0 02/15/2015 EDWARD SANCHEZ MD Ot V43.65 02/15/2015 EDWARD SANCHEZ MD Ot V54.81 02/15/2015 DANIEL GUTIERREZ, EDWARD Ambrosio Ot V57.1 02/15/2015 GARCÍA GUTIERREZ, SELENA Geiger Ot 401.9 02/15/2015 GARCÍA GUTIERREZ, SELENA Geiger Ot 414.00 02/15/2015 GARCÍA GUTIERREZ, SELENA J Ot 427.31 02/15/2015 GARCÍA GUTIERREZ, SELENA J Ot 428.0 02/22/2015 EDWARD SANCHEZ MD Ot V43.65 02/22/2015 EDWARD SANCHEZ MD Ot V54.81 02/22/2015 EDWARD SANCHEZ MD Ot V57.1 02/22/2015 SELENA MARIANO MD Ot 401.9 02/22/2015 GARCÍA GUTIERREZ, SELENA Geiger Ot 414.00 02/22/2015 GARCÍA GUTIERREZ, SELENA J Ot 427.31 02/22/2015 GARCÍA GUTIERREZ, SELENA Geiger Ot 428.0 03/17/2015 EDWARD SANCHEZ MD Ot V43.65 KNEE JOINT REPLACEMENT STATUS 03/17/2015 EDWARD SANCHEZ MD Ot V54.81 AFTERCARE FOLLOWING JOINT REPLACEMENT 03/17/2015 EDWARD SANCHEZ MD Ot V57.1 PHYSICAL THERAPY NEC 04/06/2015 BRANDIN LOZADA MD Ot 346.90 04/06/2015 YUAN OVALLE DO Ot 729.81 04/23/2015 BRANDIN LOZADA MD Ot 346.90 05/31/2015 BRANDIN LOZADA MD Ot 346.90 06/09/2015 BRANDIN LOZADA MD K Ot 346.90 08/24/2015 EDWARD SANCHEZ MD Ot [...] MD Ot Y92.[address] TO SINGLE-FAMILY (PRIVA 10/14/2015 NIRMAL JACKSON MD Ot Y99.8 OTHER EXTERNAL CAUSE STATUS 10/14/2015 NIRMAL JACKSON MD Ot Z79.82 SHELTER (CURRENT) USE OF ASPIRIN 10/14/2015 NIRMAL JACKSON MD Ot Z96.651 PRESENCE OF RIGHT ARTIFICIAL KNEE JOINT 10/24/2015 EDWARD SANCHEZ MD Ot Z47.1 10/24/2015 EDWARD SANCHEZ MD Ot Z96.651 11/15/2015 Ot 250.00 11/15/2015 Ot 397.0 11/15/2015 Ot 424.0 11/15/2015 Ot 729.5 11/15/2015 Ot 786.50 11/15/2015 Ot 250.00 11/15/2015 Ot 786.50 11/15/2015 Ot V58.66 11/15/2015 Ot V58.69 11/15/2015 Ot 786.50 11/15/2015 Ot V72.63 11/15/2015 Ot V72.81 11/15/2015 Ot 272.4 11/15/2015 SELENA MARIANO MD Ot 397.0 11/15/2015 SELENA MARIANO MD Ot 424.0 11/15/2015 SELENA MARIANO MD Ot 785.1 11/15/2015 SELENA MARIANO MD Ot 786.50 11/15/2015 YUAN OVALLE DO Ot 719.46 11/15/2015 YUAN OVALLE DO Ot V72.63 11/15/2015 YUAN OVALLE DO Ot V72.81 11/15/2015 YUAN OVALLE DO Ot V72.83 11/15/2015 YUAN OVALLE DO Ot V72.84 11/15/2015 YUAN OVALLE DO Ot V74.8 11/15/2015 YUAN OVALLE DO Ot 729.81 11/15/2015 Ot 244.9 11/15/2015 Ot 272.4 11/15/2015 Ot 401.9 11/15/2015 Ot 785.1 11/15/2015 GARCÍA GUTIERREZ, SELENA Geiger Ot 272.4 11/15/2015 GARCÍA GUTIERREZ, SELENA Geiger Ot 397.0 11/15/2015 GARCÍA GUTIERREZ, SELENA Geiger Ot 401.9 11/15/2015 SELENA MARIANO MD Ot 424.0 11/15/2015 SELENA MARIANO MD Ot 426.4 11/15/2015 SELENA MARIANO MD Ot 786.50 11/15/2015 SELENA MARIANO MD Ot 401.9 11/15/2015 SELENA MARIANO MD Ot 414.00 11/15/2015 SELENA MARIANO MD Ot 427.31 11/15/2015 SELENA MARIANO MD Ot 428.0 11/15/2015 KIERRA GUTIERREZ, BRANDIN Flynn Ot 346.90 11/15/2015 EDWARD SANCHEZ MD Ot Z47.1 11/15/2015 EDWARD SANCHEZ MD Ot Z96.651 11/24/2015 EDWARD SANCHEZ MD Ot Z47.1 AFTERCARE FOLLOWING JOINT REPLACEMENT CUEVAS 11/24/2015 EDWARD SANCHEZ MD Ot Z96.651 PRESENCE OF RIGHT ARTIFICIAL KNEE JOINT 11/28/2015 Ot 250.00 11/28/2015 Ot 397.0 11/28/2015 Ot 424.0 11/28/2015 Ot 729.5 11/28/2015 Ot 786.50 11/28/2015 Ot 250.00 11/28/2015 Ot 786.50 11/28/2015 Ot V58.66 11/28/2015 Ot V58.69 11/28/2015 Ot 786.50 11/28/2015 Ot V72.63 11/28/2015 Ot V72.81 11/28/2015 Ot 272.4 11/28/2015 SELENA MARIANO MD Ot 397.0 11/28/2015 GARCÍA GUTIERREZ, SELENA Geiger Ot 424.0 11/28/2015 GARCÍA GUTIERREZ, SELENA Geiger Ot 785.1 11/28/2015 GARCÍA GUTIERREZ, SELENA Geiger Ot 786.50 11/28/2015 SATHUBERT DOYUAN Ot 719.46 11/28/2015 SATTERLY DO, YUAN Troy Ot V72.63 11/28/2015 SATTERLY DO, YUAN Troy Ot V72.81 11/28/2015 SATTERLY DO, YUAN Troy Ot V72.83 11/28/2015 SATTERLY DO, YUAN Troy Ot V72.84 11/28/2015 SATTERLY DO, YUAN Troy Ot V74.8 11/28/2015 SATTERLY DO, YUAN Troy Ot 729.81 11/28/2015 Ot 244.9 11/28/2015 Ot 272.4 11/28/2015 Ot 401.9 11/28/2015 Ot 785.1 11/28/2015 GARCÍA GUTIERREZ, SELENA Geiger Ot 272.4 11/28/2015 GARCÍA GUTIERREZ, SELENA Geiger Ot 397.0 11/28/2015 GARCÍA GUTIERREZ, SELENA Geiger Ot 401.9 11/28/2015 GARCÍA GUTIERREZ, SELENA Geiger Ot 424.0 11/28/2015 GARCÍA GUTIERREZ, SELENA Geiger Ot 426.4 11/28/2015 GARCÍA GUTIERREZ, SELENA Geiger Ot 786.50 11/28/2015 GARCÍA GUTIERREZ, SELENA Geiger Ot 401.9 11/28/2015 GARCÍA GUTIERREZ, SELENA Geiger Ot 414.00 11/28/2015 GARCÍA GUTIERREZ, SELENA Geiger Ot 427.31 11/28/2015 GARCÍA GUTIERREZ, SELENA Geiger Ot 428.0 11/28/2015 KIERRA GUTIERREZ, BRANDIN K Ot 346.90 11/28/2015 RUFINA DPM, ALBERT Q [...] 12/27/2015 Ot V72.81 12/27/2015 Ot 272.4 12/27/2015 SELENA MARIANO MD Ot 397.0 12/27/2015 GARCÍA GUTIERREZ, SELENA Geiger Ot 424.0 12/27/2015 SELENA MARIANO MD Ot 785.1 12/27/2015 SELENA MARIANO MD Ot 786.50 12/27/2015 YAMILE SCHMITT YUAN Troy Ot 719.46 12/27/[address] [facility] YUAN Troy Ot V72.63 12/27/[address] [facility] YUAN Troy Ot V72.81 12/27/[address] [facility] YUAN Troy Ot V72.83 12/27/[address] [facility] YUAN Troy Ot V72.84 12/27/[address] [facility] SCH[facility]ITT YUAN Troy Ot V74.8 12/27/[address] [facility] DO, YUAN F Ot 729.81 12/27/2015 Ot 244.9 12/27/2015 Ot 272.4 12/27/2015 Ot 401.9 12/27/2015 Ot 785.1 12/27/2015 SELENA MARIANO MD Ot 272.4 12/27/2015 SELENA MARIANO MD Ot 397.0 12/27/2015 SELENA MARIANO MD Ot 401.9 12/27/2015 SELENA MARIANO MD Ot 424.0 12/27/2015 SELENA MARIANO MD Ot 426.4 12/27/2015 GARCÍA GUTIERREZ, SELENA Geiger Ot 786.50 12/27/2015 GARCÍA GUTIERREZ, SELENA Geiger Ot 401.9 12/27/2015 GARCÍA GUTIERREZ, SELENA Geiger Ot 414.00 12/27/2015 GARCÍA GUTIERREZ, SELENA Geiger Ot 427.31 12/27/2015 GARCÍA GUTIERREZ, SELENA Geiger Ot 428.0 12/27/2015 KIERRA GUTIERREZ, BRANDIN Flynn Ot 346.90 12/27/2015 RUFINA DPM, ALBERT Q Ot G57.51 12/27/2015 RUFINA DPM, ALBERT Q Ot M25.474 12/27/2015 DANIEL GUTIERREZ, EDWARD Ambrosio Ot Z47.1 12/27/2015 DANIEL GUTIERREZ, EDWARD Ambrosio Ot Z96.651 12/27/2015 RUFINA DPM, ALBERT Q Ot G57.51 12/27/2015 RUFINA DPM, ALBERT Q Ot M25.474 01/03/2016 DANIEL GUTIERREZ, EDWARD Ambrosio Ot Z47.1 AFTERCARE FOLLOWING JOINT REPLACEMENT CUEVAS 01/03/2016 DANIEL GUTIERREZ, EDWARD Ambrosio Ot Z96.651 PRESENCE OF RIGHT ARTIFICIAL KNEE JOINT 01/11/2016 RUFINA DPM, ALBERT Q Ot G57.51 01/11/2016 RUFINA DPM, ALBERT Q Ot M25.474 03/20/2016 ANKITA, BARTOLOME E INCOMING FREIGHT CLERK Ot S62.624D DISP FX OF MED PHALANX OF R RNG FNGR, 7T 03/20/2016 ANKITA, BARTOLOME E INCOMING FREIGHT CLERK Ot W19.XXXD UNSPECIFIED FALL, SUBSEQUENT ENCOUNTER 03/20/2016 ANKITA, BARTOLOME E INCOMING FREIGHT CLERK Ot 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, STORE OR MARKET PLACE 03/20/2016 ANKITA, BARTOLOME E INCOMING FREIGHT CLERK Ot Y99.8 OTHER EXTERNAL CAUSE STATUS 04/11/2016 ANKITA, BARTOLOME E INCOMING FREIGHT CLERK Ot S62.624D DISP FX OF MED PHALANX OF R RNG FNGR, 7T 04/11/2016 ANKITA, BARTOLOME E INCOMING FREIGHT CLERK Ot W19.XXXD UNSPECIFIED FALL, SUBSEQUENT ENCOUNTER 04/11/2016 ANKITA, BARTOLOME E INCOMING FREIGHT CLERK Ot 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, STORE OR MARKET PLACE 04/11/2016 ANKITA, BARTOLOME E INCOMING FREIGHT CLERK Ot Y99.8 OTHER EXTERNAL CAUSE STATUS 11/02/2016 SOFYA GUTIERREZ, AMERICO Flynn Ot G47.33 OBSTRUCTIVE SLEEP APNEA (ADULT) (PEDIATR 11/02/2016 SOFYA GUTIERREZ, AMERICO Flynn Ot G47.33 OBSTRUCTIVE SLEEP APNEA (ADULT) (PEDIATR 11/02/2016 SOFYA GUTIERREZ, AMERICO Flynn Ot G47.33 OBSTRUCTIVE SLEEP APNEA (ADULT) (PEDIATR 11/08/2016 SOFYA GUTIERREZ, AMERICO Flynn Ot G47.33 OBSTRUCTIVE SLEEP APNEA (ADULT) (PEDIATR 11/10/2016 Olvin Horton 813.42 OTHER CLOSED FRACTURES OF DISTAL END OF RADIUS (ALONE) 11/10/2016 Olvin Horton 813.43 FRACTURE OF DISTAL END OF ULNA (ALONE), CLOSED 11/10/2016 Olvin Horton S52.501A UNSPECIFIED FRACTURE OF THE LOWER END OF RIGHT RADIUS, INITIAL ENCOUNTER FOR CLOSED FRACTURE 11/10/2016 Olvin Horton S52.611A DISP FX OF RIGHT ULNA STYLOID PROCESS, INIT FOR CLOS FX 11/13/2016 Winifred Brito S52.501D UNSPECIFIED FRACTURE OF THE LOWER END OF RIGHT RADIUS, SUBSEQUENT ENCOUNTER FOR CLOSED FRACTURE WITH ROUTINE HEALING 11/13/2016 Winifred Brito S52.611D DISPLACED FRACTURE OF RIGHT ULNA STYLOID PROCESS, SUBSEQUENT ENCOUNTER FOR CLOSED FRACTURE WITH ROUTINE HEALING 11/13/2016 Winifred Brito V54.12 AFTERCARE FOR HEALING TRAUMATIC FRACTURE OF LOWER ARM 11/25/2016 TIFFANIE OJEDA 295.70 SCHIZOAFFECTIVE DISORDER, UNSPECIFIED 11/25/2016 TIFFANIE OJEDA 780.4 DIZZINESS AND GIDDINESS 11/25/2016 TIFFANIE OJEDA 813.42 OTHER CLOSED FRACTURES OF DISTAL END OF RADIUS (ALONE) 11/25/2016 TIFFANIE OJEDA 965.09 POISONING BY OTHER OPIATES AND RELATED NARCOTICS 11/25/2016 TIFFANIE OJEDA F25.8 OTHER SCHIZOAFFECTIVE DISORDERS 11/25/2016 TIFFANIE OJEDA R42 DIZZINESS AND GIDDINESS 11/25/2016 TIFFANIE OJEDA S52.501A UNSP FRACTURE OF THE LOWER END OF RIGHT RADIUS, INIT 11/25/2016 BATTAGLER, TIFFANIE A T40.2X1A POISONING BY OT OPIOIDS, ACCIDENTAL (UNINTENTIONAL), INIT 11/25/2016 TIFFANIE OJEDA W V45.89 OTHER POSTSURGICAL STATUS 11/25/2016 TIFFANIE OJEDA W Z98.890 OTHER SPECIFIED POSTPROCEDURAL STATES 02/13/2017 SELENA MARIANO MD Ot 397.0 TRICUSPID VALVE DISEASE 02/13/2017 SELENA MARIANO MD Ot 424.0 MITRAL VALVE DISORDER 02/13/2017 ESLENA MARIANO MD Ot 785.1 PALPITATIONS 02/13/2017 SELENA MARIANO MD Ot 786.50 CHEST PAIN NOS 02/13/2017 YUAN OVALLE DO Ot 719.46 JOINT PAIN-L/LEG 02/13/2017 YUAN OVALLE DO Ot V72.63 PRE-PROCEDURAL LABORATORY EXAMINATION 02/13/2017 YUAN OVALLE DO, Ot V72.81 [id number]-TAV-[id number] CARDIOVASCULAR 02/13/2017 YUAN OVALLE DO, Ot V72.83 EXAM PRE-OPERATIVE NEC 02/13/2017 YUAN [...] Ot 428.0 CONGESTIVE HEART FAILURE NOS 02/13/2017 BRANDIN LOZADA MD Ot 346.90 MIGRAINE UNSPECIFIED W/O INTRACT MGRN W/ 02/13/2017 RUFINA DPM, ALBERT Q Ot G57.51 TARSAL TUNNEL SYNDROME, RIGHT LOWER LIMB 02/13/2017 RUFINA DPM, ALBERT Q Ot M25.474 EFFUSION, RIGHT FOOT 03/15/2017 BARTOLOME LUCIANO INCOMING FREIGHT CLERK Ot S62.101D FX UNSP CARPAL BONE, RIGHT WRIST, SUBS F 04/08/2017 Johann Wright V64.3 PROCEDURE NOT CARRIED OUT FOR OTHER REASONS 04/08/2017 Johann Wright Z53.8 PROCEDURE AND TREATMENT NOT CARRIED OUT FOR OTHER REASONS 05/02/2017 ANGELA CHEN Ot E78.2 MIXED HYPERLIPIDEMIA 05/02/2017 ANGELA CHEN Ot I10 ESSENTIAL (PRIMARY) HYPERTENSION 05/02/2017 ANGELA CHEN Ot I25.10 ATHSCL HEART DISEASE OF [place] CORONARY 05/02/2017 ANGELA CHEN Ot I45.10 UNSPECIFIED RIGHT BUNDLE-BRANCH BLOCK 05/17/2017 SELENA MARIANO MD, Ot E03.9 HYPOTHYROIDISM, UNSPECIFIED 05/17/2017 SELENA MARIANO MD Ot E11.9 TYPE 2 DIABETES MELLITUS WITHOUT COMPLIC 05/17/2017 SELENA MARIANO MD, Ot E78.5 HYPERLIPIDEMIA, UNSPECIFIED 05/17/2017 SELENA MARIANO MD, Ot F41.8 OTHER SPECIFIED ANXIETY DISORDERS 05/17/2017 SELENA MARIANO MD Ot I10 ESSENTIAL (PRIMARY) HYPERTENSION 05/17/2017 SELENA MARIANO MD, Ot I25.10 ATHSCL HEART DISEASE OF [place] CORONARY 05/17/2017 SELENA MARIANO MD, Ot J45.909 UNSPECIFIED ASTHMA, UNCOMPLICATED 05/17/2017 SELENA MARIANO MD Ot K21.9 GASTRO-ESOPHAGEAL REFLUX DISEASE WITHOUT 05/17/2017 SELENA MARIANO MD Ot R94.39 ABNORMAL RESULT OF OTHER CARDIOVASCULAR 05/17/2017 SELENA MARIANO MD Ot Z79.899 OTHER SHELTER (CURRENT) DRUG THERAPY 05/21/2017 ANGELA CHEN Ot E78.2 MIXED HYPERLIPIDEMIA 05/21/2017 ANGELA CHEN Ot I10 ESSENTIAL (PRIMARY) HYPERTENSION 05/21/2017 ANGELA CHEN Ot I25.10 ATHSCL HEART DISEASE OF [place] CORONARY 05/21/2017 ANGELA CHEN Ot I45.10 UNSPECIFIED RIGHT BUNDLE-BRANCH BLOCK 05/21/2017 ANGELA CHEN Ot E78.2 MIXED HYPERLIPIDEMIA 05/21/2017 ANGELA CHEN Ot I10 ESSENTIAL (PRIMARY) HYPERTENSION 05/21/2017 ANGELA CHEN Ot I25.10 ATHSCL HEART DISEASE OF [place] CORONARY 05/21/2017 ANGELA CHEN Ot I45.10 UNSPECIFIED RIGHT BUNDLE-BRANCH BLOCK 05/21/2017 SELENA MARIANO MD Ot E03.9 HYPOTHYROIDISM, UNSPECIFIED 05/21/2017 SELENA MARIANO MD Ot E11.9 TYPE 2 DIABETES MELLITUS WITHOUT COMPLIC 05/21/2017 SELENA MARIANO MD Ot E78.5 HYPERLIPIDEMIA, UNSPECIFIED 05/21/2017 SELENA MARIANO MD Ot F41.8 OTHER SPECIFIED ANXIETY DISORDERS 05/21/2017 SELENA MARIANO MD Ot I10 ESSENTIAL (PRIMARY) HYPERTENSION 05/21/2017 SELENA MARIANO MD Ot I25.10 ATHSCL HEART DISEASE OF [place] CORONARY 05/21/2017 SELENA MARIANO MD Ot J45.909 UNSPECIFIED ASTHMA, UNCOMPLICATED 05/21/2017 SELENA MARIANO MD Ot K21.9 GASTRO-ESOPHAGEAL REFLUX DISEASE WITHOUT 05/21/2017 SELENA MARIANO MD Ot R94.39 ABNORMAL RESULT OF OTHER CARDIOVASCULAR 05/21/2017 ESLENA MARIANO MD Ot Z79.899 OTHER CLASSIFICATION CONTROL CLERK (CURRENT) DRUG THERAPY 07/10/2017 ANGELA CHEN Ot E78.2 MIXED HYPERLIPIDEMIA 07/10/2017 ANGELA CHEN Ot I10 ESSENTIAL (PRIMARY) HYPERTENSION 07/10/2017 ANGELA CHEN Ot I25.10 ATHSCL HEART DISEASE OF [place] CORONARY 07/10/2017 ANGELA CHEN Ot I45.10 UNSPECIFIED RIGHT BUNDLE-BRANCH BLOCK 07/10/2017 ANGELA CHEN Ot E78.2 MIXED HYPERLIPIDEMIA 07/10/2017 ANGELA CHEN Ot I10 ESSENTIAL (PRIMARY) HYPERTENSION 07/10/2017 ANGELA CHEN Ot I25.10 ATHSCL HEART DISEASE OF [place] CORONARY 07/10/2017 ANGELA CHEN Ot I45.10 UNSPECIFIED RIGHT BUNDLE-BRANCH BLOCK 07/15/2017 Johann Wright 530.81 07/15/2017 Johann Wright 535.50 UNSPECIFIED GASTRITIS AND GASTRODUODENITIS, WITHOUT MENTION OF HEMORRHAGE 07/15/2017 Johann Wright 564.1 IRRITABLE BOWEL SYNDROME 07/15/2017 Johann Wright K21.9 GASTRO-ESOPHAGEAL REFLUX DISEASE WITHOUT ESOPHAGITIS 07/15/2017 Johann Wright K29.60 OTHER GASTRITIS WITHOUT BLEEDING 07/15/2017 Johann Wright K58.9 IRRITABLE BOWEL SYNDROME WITHOUT DIARRHEA 07/15/2017 Johann Wright V12.72 PERSONAL HISTORY OF COLONIC POLYPS 07/15/2017 Johann Wright V16.0 FAMILY HISTORY OF MALIGNANT NEOPLASM OF GASTROINTESTINAL TRACT 07/15/2017 Johann Wright Z80.0 FAMILY HISTORY OF MALIGNANT NEOPLASM OF DIGESTIVE ORGANS 07/15/2017 Johann Wright Z86.010 PERSONAL HISTORY OF COLONIC POLYPS 12/04/2017 BERTRAM GRANADO CLAM SHUCKER-C Ot Z47.89 ENCOUNTER FOR OTHER ORTHOPEDIC AFTERCARE 12/18/2017 Char Gonzalez A 786.2 COUGH 12/18/2017 Char Gonzalez R05 COUGH 12/18/2017 Char Gonzalez 493 ASTHMA 12/18/2017 Char Gonzalez 786.2 COUGH 12/18/2017 Char Gonzalez J45.909 UNSPECIFIED ASTHMA, UNCOMPLICATED 12/18/2017 Char Gonzalez R05 COUGH 12/18/2017 Char Gonzalez 493 ASTHMA 12/18/2017 Char Gonzalez 786.2 COUGH 12/18/2017 Char Gonzalez J45.909 UNSPECIFIED ASTHMA, UNCOMPLICATED 12/18/2017 Char Gonzalez R05 COUGH 02/19/2018 Char Gonzalez 250.00 DIABETES MELLITUS WITHOUT MENTION OF COMPLICATION, TYPE II OR UNSPECIFIED TYPE, NOT STATED UNCONTROLLED 02/19/2018 Char Gonzalez E11.9 TYPE 2 DIABETES MELLITUS WITHOUT COMPLICATIONS 02/19/2018 Char Gonzalez 250.00 DIABETES MELLITUS WITHOUT MENTION OF COMPLICATION, TYPE II OR UNSPECIFIED TYPE, NOT STATED UNCONTROLLED 02/19/2018 Char Gonzalez E11.9 TYPE 2 DIABETES MELLITUS WITHOUT COMPLICATIONS 03/07/2018 SELENA MARIANO MD Ot 397.0 TRICUSPID VALVE DISEASE 03/07/2018 SELENA MARIANO MD Ot 424.0 MITRAL VALVE DISORDER 03/07/2018 SELENA MARIANO MD Ot 785.1 PALPITATIONS 03/07/2018 SELENA MARIANO MD Ot 786.50 CHEST PAIN NOS 03/07/2018 YUAN OVALLE DO Ot 719.46 JOINT PAIN-L/LEG 03/07/2018 YUAN OVALLE DO Ot V72.63 PRE-PROCEDURAL LABORATORY EXAMINATION 03/07/2018 YUAN OVALLE DO Ot V72.81 [id number] CARDIOVASCULAR 03/07/2018 YUAN OVALLE DO Ot V72.83 EXAM PRE-OPERATIVE NEC 03/07/2018 YUAN OVALLE DO Ot V72.84 EXAM PRE-OPERATIVE NOS 03/07/2018 YUAN OVALLE DO Ot V74.8 SCREEN-BACTERIAL DIS NEC 03/07/2018 YUAN OVALLE DO Ot 729.81 SWELLING OF LIMB 03/07/2018 Ot 244.9 HYPOTHYROIDISM NOS 03/07/2018 Ot 272.4 HYPERLIPIDEMIA NEC/NOS 03/07/2018 Ot 401.9 HYPERTENSION NOS 03/07/2018 Ot 785.1 PALPITATIONS 03/07/2018 SELENA MARIANO MD Ot 272.4 HYPERLIPIDEMIA NEC/NOS 03/07/2018 SELENA MARIANO MD Ot 397.0 TRICUSPID VALVE DISEASE 03/07/2018 SELENA MARIANO MD Ot 401.9 HYPERTENSION NOS 03/07/2018 SELENA MARIANO MD Ot 424.0 MITRAL VALVE DISORDER 03/07/2018 SELENA MARIANO MD Ot 426.4 RT BUNDLE BRANCH BLOCK 03/07/2018 SELENA MARIANO MD Ot 786.50 CHEST PAIN NOS 03/07/2018 SELENA MARIANO MD Ot 401.9 HYPERTENSION NOS 03/07/2018 SELENA MARIANO MD Ot 414.00 CORON ATHEROSCLER NOS TYPE VESSEL, NATIV 03/07/2018 SELENA MARIANO MD Ot 427.31 ATRIAL FIBRILLATION 03/07/2018 SELENA MARIANO MD Ot 428.0 CONGESTIVE HEART FAILURE NOS 03/07/2018 BRANDIN LOZADA MD Ot 346.90 MIGRAINE UNSPECIFIED W/O INTRACT MGRN W/ 03/07/2018 RUFINA DPM, ALBERT Q Ot G57.51 TARSAL TUNNEL SYNDROME, RIGHT LOWER LIMB 03/07/2018 RUFINA DPM, ALBERT Q Ot M25.474 EFFUSION, RIGHT FOOT 03/07/2018 ANGELA CHEN Ot E78.2 MIXED HYPERLIPIDEMIA 03/07/2018 ANGELA CHEN Ot I10 ESSENTIAL (PRIMARY) HYPERTENSION 03/07/2018 ANGELA CHEN Ot I25.10 ATHSCL HEART DISEASE OF [place] CORONARY 03/07/2018 ANGELA CHEN Ot I45.10 UNSPECIFIED RIGHT BUNDLE-BRANCH BLOCK 03/07/2018 ANGELA CHEN Ot E78.2 MIXED HYPERLIPIDEMIA 03/07/2018 ANGELA CHEN Ot I10 ESSENTIAL (PRIMARY) HYPERTENSION 03/07/2018 ANGELA CHEN Ot I25.10 ATHSCL HEART DISEASE OF [place] CORONARY 03/07/2018 ANGELA CHEN Ot I45.10 UNSPECIFIED RIGHT BUNDLE-BRANCH BLOCK 04/04/2018 MARIA TERESA JIMENEZ DO Ot E11.9 TYPE 2 DIABETES MELLITUS WITHOUT COMPLIC 04/04/2018 MARIA TERESA JIMENEZ DO Ot R26.9 UNSPECIFIED ABNORMALITIES OF GAIT AND MO 04/04/2018 MARIA TERESA JIMENEZ DO Ot R51 HEADACHE 04/04/2018 MARIA TERESA JIMENEZ DO Ot R53.1 WEAKNESS 04/04/2018 MARIA TERESA JIMENEZ DO, Ot E11.9 TYPE 2 DIABETES MELLITUS WITHOUT COMPLIC 04/04/2018 MARIA TERESA JIMENEZ DO Ot R26.9 UNSPECIFIED ABNORMALITIES OF GAIT AND MO 04/04/2018 MARIA TERESA JIMENEZ DO Ot R51 HEADACHE 04/04/2018 BARBARAMARIA TERESA BLANCO DO Ot R53.1 WEAKNESS 04/28/2018 Char Gonzalez W V70.0 ROUTINE GENERAL MEDICAL EXAMINATION AT A HEALTH CARE FACILITY 04/28/2018 Char Gonzalez W Z00.00 ENCOUNTER FOR GENERAL ADULT MEDICAL EXAMINATION WITHOUT ABNORMAL FINDINGS 04/28/2018 Char Gonzalez W V70.0 ROUTINE GENERAL MEDICAL EXAMINATION AT A HEALTH CARE FACILITY 04/28/2018 Char Gonzalez W Z00.00 ENCOUNTER FOR GENERAL ADULT MEDICAL EXAMINATION WITHOUT ABNORMAL FINDINGS 05/16/2018 MARIA TERESA JIMENEZ DO Ot E11.9 TYPE 2 DIABETES MELLITUS WITHOUT COMPLIC 05/16/2018 MARIA TERESA JIMENEZ DO Ot R26.9 UNSPECIFIED ABNORMALITIES OF GAIT AND MO 05/16/2018 MARIA TERESA JIMENEZ DO Ot R51 HEADACHE 05/16/2018 MARIA TERESA JIMENEZ DO Ot R53.1 WEAKNESS 06/19/2018 Kimberly Gonzaleza W 782.1 RASH AND OTHER NONSPECIFIC SKIN ERUPTION 06/19/2018 Carlos, Char W R21 RASH AND OTHER NONSPECIFIC SKIN ERUPTION 06/19/2018 Carlos, Hcar W 782.1 RASH AND OTHER NONSPECIFIC SKIN ERUPTION 06/19/2018 Carlos, Char W R21 RASH AND OTHER NONSPECIFIC SKIN ERUPTION 06/30/2018 MARIA TERESA JIMENEZ DO Ot E11.9 TYPE 2 DIABETES MELLITUS WITHOUT COMPLIC 06/30/2018 MARIA TERESA JIMENEZ DO Ot R26.9 UNSPECIFIED ABNORMALITIES OF GAIT AND MO 06/30/2018 MARIA TERESA JIMENEZ DO Ot R51 HEADACHE 06/30/2018 MARIA TERESA JIMENEZ DO Ot R53.1 WEAKNESS 07/07/2018 Johann Wright W 530.3 STRICTURE AND STENOSIS OF ESOPHAGUS 07/07/2018 Johann Wright 530.81 ESOPHAGEAL REFLUX 07/07/2018 Johann Wright 535.10 ATROPHIC GASTRITIS, WITHOUT MENTION OF HEMORRHAGE 07/07/2018 Johann Wright 787.01 NAUSEA WITH VOMITING 07/07/2018 Johann Wright 787.20 DYSPHAGIA, UNSPECIFIED 07/07/2018 Johann Wright K21.0 GASTRO-ESOPHAGEAL REFLUX DISEASE WITH ESOPHAGITIS 07/07/2018 Johann Wright W K22.2 ESOPHAGEAL OBSTRUCTION 07/07/2018 Johann Wright W K29.30 CHRONIC SUPERFICIAL GASTRITIS WITHOUT BLEEDING 07/07/2018 Johann Wright W R11.2 NAUSEA WITH VOMITING, UNSPECIFIED 07/07/2018 Kyle Johann W R13.10 DYSPHAGIA, UNSPECIFIED 08/13/2018 GARCÍA GUTIERREZ, SELENA Geiger Ot 397.0 TRICUSPID VALVE DISEASE 08/13/2018 SELENA MARIANO MD Ot 424.0 MITRAL VALVE DISORDER 08/13/2018 SELENA MARIANO MD Ot 785.1 PALPITATIONS 08/13/2018 SELENA MARIANO MD Ot 786.50 CHEST PAIN NOS 08/13/2018 YUAN OVALLE DO Ot 719.46 JOINT PAIN-L/LEG 08/13/2018 YUAN OVALLE DO Ot V72.63 PRE-PROCEDURAL LABORATORY EXAMINATION 08/13/2018 YUAN OVALLE DO Ot V72.81 [id number] CARDIOVASCULAR 08/13/2018 YUAN OVALLE DO Ot V72.83 EXAM PRE-OPERATIVE NEC 08/13/2018 YUAN OVALLE DO Ot V72.84 EXAM PRE-OPERATIVE NOS 08/13/2018 YUAN OVALLE DO Ot V74.8 SCREEN-BACTERIAL DIS NEC 08/13/2018 YUAN OVALLE DO Ot 729.81 SWELLING OF LIMB 08/13/2018 Ot 244.9 HYPOTHYROIDISM NOS 08/13/2018 Ot 272.4 HYPERLIPIDEMIA NEC/NOS 08/13/2018 Ot 401.9 HYPERTENSION NOS 08/13/2018 Ot 785.1 PALPITATIONS 08/13/2018 GARCÍA GUTIERREZ, SELENA Geiger Ot 272.4 HYPERLIPIDEMIA NEC/NOS 08/13/2018 GARCÍA GUTIERREZ, SELENA Geiger Ot 397.0 TRICUSPID VALVE DISEASE 08/13/2018 SELENA MARIANO MD Ot 401.9 HYPERTENSION NOS 08/13/2018 SELENA MARIANO MD Ot 424.0 MITRAL VALVE DISORDER 08/13/2018 SELENA MARIANO MD Ot 426.4 RT BUNDLE BRANCH BLOCK 08/13/2018 SELENA MARIANO MD Ot 786.50 CHEST PAIN NOS 08/13/2018 SELEAN MARIANO MD Ot 401.9 HYPERTENSION NOS 08/13/2018 GARCÍA GUTIERREZ, SELENA Geiger Ot 414.00 CORON ATHEROSCLER NOS TYPE VESSEL, NATIV 08/13/2018 SELENA MARIANO MD Ot 427.31 ATRIAL FIBRILLATION 08/13/2018 SELENA MARIANO MD Ot 428.0 CONGESTIVE HEART FAILURE NOS 08/13/2018 BRANDIN LOZADA MD Ot 346.90 MIGRAINE UNSPECIFIED W/O INTRACT MGRN W/ 08/13/2018 RUFINA DPM, ALBERT Q Ot G57.51 TARSAL TUNNEL SYNDROME, RIGHT LOWER LIMB 08/13/2018 RUFINA DPM, ALBERT Q Ot M25.474 EFFUSION, RIGHT FOOT 08/13/2018 ANGELA CHEN Ot E78.2 MIXED HYPERLIPIDEMIA 08/13/2018 ANGELA CHEN Ot I10 ESSENTIAL (PRIMARY) HYPERTENSION 08/13/2018 ANGELA CHEN Ot I25.10 ATHSCL HEART DISEASE OF [place] CORONARY 08/13/2018 ANGELA CHEN Ot I45.10 UNSPECIFIED RIGHT BUNDLE-BRANCH BLOCK 08/13/2018 ANGELA CHEN Ot E78.2 MIXED HYPERLIPIDEMIA 08/13/2018 ANGELA CHEN Ot I10 ESSENTIAL (PRIMARY) HYPERTENSION 08/13/2018 ANGELA CHEN Ot I25.10 ATHSCL HEART DISEASE OF [place] CORONARY 08/13/2018 ANGELA CHEN Ot I45.10 UNSPECIFIED RIGHT BUNDLE-BRANCH BLOCK 08/15/2018 SELENA MARIANO MD Ot 397.0 TRICUSPID VALVE DISEASE 08/15/2018 SELENA MARIANO MD Ot 424.0 MITRAL VALVE DISORDER 08/15/2018 SELENA MARIANO MD Ot 785.1 PALPITATIONS 08/15/2018 SELENA MARIANO MD Ot 786.50 CHEST PAIN NOS 08/15/2018 GALTERYUAN BATEMAN DO Ot 719.46 JOINT PAIN-L/LEG 08/15/2018 YUAN OVALLE DO, Ot V72.63 PRE-PROCEDURAL LABORATORY EXAMINATION 08/15/2018 YUAN OVALLE DO Ot V72.81 [id number] CARDIOVASCULAR 08/15/2018 YUAN OVALLE DO, Ot V72.83 EXAM PRE-OPERATIVE NEC 08/15/2018 SATTERYUAN BATEMAN DO Ot V72.84 EXAM PRE-OPERATIVE NOS 08/15/2018 GALTERYUAN BATEMAN DO Ot V74.8 SCREEN-BACTERIAL DIS NEC 08/15/2018 GALTERYUAN BATEMAN DO Ot 729.81 SWELLING OF LIMB 08/15/2018 Ot 244.9 HYPOTHYROIDISM NOS 08/15/2018 Ot 272.4 HYPERLIPIDEMIA NEC/NOS 08/15/2018 Ot 401.9 HYPERTENSION NOS 08/15/2018 Ot 785.1 PALPITATIONS 08/15/2018 GARCÍA GUTIERREZ, SELENA Geiger Ot 272.4 HYPERLIPIDEMIA NEC/NOS 08/15/2018 GARCÍA GUTIERREZ, SELENA Geiger Ot 397.0 TRICUSPID VALVE DISEASE 08/15/2018 SELENA MARIANO MD Ot 401.9 HYPERTENSION NOS 08/15/2018 SELENA MARIANO MD Ot 424.0 MITRAL VALVE DISORDER 08/15/2018 SELENA MARIANO MD Ot 426.4 RT BUNDLE BRANCH BLOCK 08/15/2018 SELENA MARIANO MD Ot 786.50 CHEST PAIN NOS 08/15/2018 SELENA MARIANO MD Ot 401.9 HYPERTENSION NOS 08/15/2018 GARCÍA GUTIERREZ, SELENA Geiger Ot 414.00 CORON ATHEROSCLER NOS TYPE VESSEL, NATIV 08/15/2018 SELENA MARIANO MD Ot 427.31 ATRIAL FIBRILLATION 08/15/2018 SELENA MARIANO MD Ot 428.0 CONGESTIVE HEART FAILURE NOS 08/15/2018 KIERRA GUTIERREZ, BRANDIN Flynn Ot 346.90 MIGRAINE UNSPECIFIED W/O INTRACT MGRN W/ 08/15/2018 RUFINA DPM, ALBERT Q Ot G57.51 TARSAL TUNNEL SYNDROME, RIGHT LOWER LIMB 08/15/2018 RUFINA DPM, ALBERT Q Ot M25.474 EFFUSION, RIGHT FOOT 08/15/2018 ANGELA CHEN Ot E78.2 MIXED HYPERLIPIDEMIA 08/15/2018 ANGELA CHEN Ot I10 ESSENTIAL (PRIMARY) HYPERTENSION 08/15/2018 ANGELA CHEN Ot I25.10 ATHSCL HEART DISEASE OF [place] CORONARY 08/15/2018 ANGELA CHEN Ot I45.10 UNSPECIFIED RIGHT BUNDLE-BRANCH BLOCK 08/15/2018 ANGELA CHEN Ot E78.2 MIXED HYPERLIPIDEMIA 08/15/2018 ANGELA CHEN Ot I10 ESSENTIAL (PRIMARY) HYPERTENSION 08/15/2018 ANGELA CHEN Ot I25.10 ATHSCL HEART DISEASE OF [place] CORONARY 08/15/2018 ANGELA CHEN Ot I45.10 UNSPECIFIED RIGHT BUNDLE-BRANCH BLOCK 08/18/2018 PRETTY GUTIERREZ, LUANNE Fraga Ot J32.2 CHRONIC ETHMOIDAL SINUSITIS 08/18/2018 LUANNE OLSEN MD Ot J34.2 DEVIATED NASAL SEPTUM 08/18/2018 LUANNE OLSEN MD Ot Z98.890 OTHER SPECIFIED POSTPROCEDURAL STATES 09/30/2018 YUAN OVALLE DO Ot 719.46 JOINT PAIN-L/LEG 09/30/2018 YUAN OVALLE DO Ot V72.63 PRE-PROCEDURAL LABORATORY EXAMINATION 09/30/2018 YUAN OVALLE DO Ot V72.81 [id number] CARDIOVASCULAR 09/30/2018 YUAN OVALLE DO Ot V72.83 EXAM PRE-OPERATIVE NEC 09/30/2018 YUAN OVALLE DO, Ot V72.84 EXAM PRE-OPERATIVE NOS 09/30/2018 YUAN OVALLE DO Ot V74.8 SCREEN-BACTERIAL DIS NEC 09/30/2018 YUAN OVALLE DO Ot 729.81 SWELLING OF LIMB 09/30/2018 Ot 244.9 HYPOTHYROIDISM NOS 09/30/2018 Ot 272.4 HYPERLIPIDEMIA NEC/NOS 09/30/2018 Ot 401.9 HYPERTENSION NOS 09/30/2018 Ot 785.1 PALPITATIONS 09/30/2018 SELENA MARIANO MD Ot 272.4 HYPERLIPIDEMIA NEC/NOS 09/30/2018 SELENA MARIANO MD Ot 397.0 TRICUSPID VALVE DISEASE 09/30/2018 SELENA MARIANO MD Ot 401.9 HYPERTENSION NOS 09/30/2018 SELENA MARIANO MD Ot 424.0 MITRAL VALVE DISORDER 09/30/2018 SELENA MARIANO MD Ot 426.4 RT BUNDLE BRANCH BLOCK 09/30/2018 SELENA MARIANO MD Ot 786.50 CHEST PAIN NOS 09/30/2018 SELENA MARIANO MD Ot 401.9 HYPERTENSION NOS 09/30/2018 SELENA MARIANO MD Ot 414.00 CORON ATHEROSCLER NOS TYPE VESSEL, NATIV 09/30/2018 GARCÍA GUTIERREZ, SELENA Geiger Ot 427.31 ATRIAL FIBRILLATION 09/30/2018 GARCÍA GUTIERREZ, SELENA Geiger Ot 428.0 CONGESTIVE HEART FAILURE NOS 09/30/2018 KIERRA GUTIERREZ, BRANDIN Flynn Ot 346.90 MIGRAINE UNSPECIFIED W/O INTRACT MGRN W/ 09/30/2018 RUFINA DPM, ALBERT Q Ot G57.51 TARSAL TUNNEL SYNDROME, RIGHT LOWER LIMB 09/30/2018 RUFINA DPM, ALBERT Q Ot M25.474 EFFUSION, RIGHT FOOT 09/30/2018 ANGELA CHEN Ot E78.2 MIXED HYPERLIPIDEMIA 09/30/2018 ANGELA CHEN Ot I10 ESSENTIAL (PRIMARY) HYPERTENSION 09/30/2018 ANGELA CHEN Ot I25.10 ATHSCL HEART DISEASE OF [place] CORONARY 09/30/2018 ANGELA CHEN Ot I45.10 UNSPECIFIED RIGHT BUNDLE-BRANCH BLOCK 09/30/2018 ANGELA CHEN Ot E78.2 MIXED HYPERLIPIDEMIA 09/30/2018 ANGELA CHEN Ot I10 ESSENTIAL (PRIMARY) HYPERTENSION 09/30/2018 ANGELA CHEN Ot I25.10 ATHSCL HEART DISEASE OF [place] CORONARY 09/30/2018 ANGELA CHEN Ot I45.10 UNSPECIFIED RIGHT BUNDLE-BRANCH BLOCK 09/30/2018 LUANNE OLSEN MD Ot J32.2 CHRONIC ETHMOIDAL SINUSITIS 09/30/2018 LUANNE OLSEN MD Ot J34.2 DEVIATED NASAL SEPTUM 09/30/2018 LUANNE OLSEN MD Ot Z98.890 OTHER SPECIFIED POSTPROCEDURAL STATES 01/05/2019 ELIO LOWRY W 295.70 SCHIZOAFFECTIVE DISORDER, UNSPECIFIED 01/05/2019 ELIO LOWRY W F25.8 OTHER SCHIZOAFFECTIVE DISORDERS 01/05/2019 ELIO LOWRY W 295.70 SCHIZOAFFECTIVE DISORDER, UNSPECIFIED 01/05/2019 ELIO LOWRY W 311 DEPRESSIVE DISORDER, NOT ELSEWHERE CLASSIFIED 01/05/2019 ELIO LOWRY W F25.8 OTHER SCHIZOAFFECTIVE DISORDERS 01/05/2019 TARTAGLDAYANA, ELIO W F32.9 MAJOR DEPRESSIVE DISORDER, SINGLE EPISODE, UNSPECIFIED 01/14/2019 TARTAGLDAYANA, ELIO W 272.4 01/14/2019 TARTAGLIONE, ELIO W 295.70 SCHIZOAFFECTIVE DISORDER, UNSPECIFIED 01/14/2019 TARTAGLDAYANA, ELIO W 296.34 01/14/2019 TARTAGLDAYANA, ELIO W 300.02 01/14/2019 TARTAGLDAYANA, ELIO W 311 DEPRESSIVE DISORDER, NOT ELSEWHERE CLASSIFIED 01/14/2019 TARTAGLDAYANA, ELIO W 381.81 DYSFUNCTION OF [place] TUBE 01/14/2019 STEPHANIEGLELIO ANNE 493.90 ASTHMA, UNSPECIFIED 01/14/2019 TARTAGLELIO ANNE W 530.81 01/14/2019 TARTAGLELIO ANNE W 719.40 PAIN IN JOINT, SITE UNSPECIFIED 01/14/2019 STEPHANIEGLELIO ANNE W 780.52 01/14/2019 TARTAGLELIO ANNE W E78.5 HYPERLIPIDEMIA, UNSPECIFIED 01/14/2019 TARTAGLDAYANA, ELIO Garcia F25.0 01/14/2019 TARTAGLELIO ANNE W F25.8 OTHER SCHIZOAFFECTIVE DISORDERS 01/14/2019 STEPHANIEGLELIO ANNE F32.9 MAJOR DEPRESSIVE DISORDER, SINGLE EPISODE, UNSPECIFIED 01/14/2019 REBATAGLELIO ANNE F33.3 MAJOR DEPRESSV DISORDER, RECURRENT, SEVERE W PSYCH SYMPTOMS 01/14/2019 REBATAGLELIO ANNE W F41.1 GENERALIZED ANXIETY DISORDER 01/14/2019 TARTAGLELIO ANNE W G47.00 INSOMNIA, UNSPECIFIED 01/14/2019 TARTAGLELIO ANNE W H69.81 OTHER SPECIFIED DISORDERS OF [place] TUBE, RIGHT EAR 01/14/2019 STEPHANIEGLELIO ANNE J45.909 UNSPECIFIED ASTHMA, UNCOMPLICATED 01/14/2019 REBATAGLELIO ANNE K21.9 GASTRO-ESOPHAGEAL REFLUX DISEASE WITHOUT ESOPHAGITIS 01/14/2019 REBATAGLELIO ANNE M25.50 PAIN IN UNSPECIFIED JOINT 02/06/2019 Rock Will W 368.8 OTHER SPECIFIED VISUAL DISTURBANCES 02/06/2019 Rock Will 784.0 HEADACHE 02/06/2019 Rock Will H53.8 OTHER VISUAL DISTURBANCES 02/06/2019 Rock Will R51 HEADACHE 02/06/2019 Rock Will S02.0XXD FRACTURE OF VAULT OF SKULL, SUBS FOR FX W ROUTN HEAL 02/06/2019 Rock Will V54.19 AFTERCARE FOR HEALING TRAUMATIC FRACTURE OF OTHER BONE 03/08/2019 Rock Will 920 CONTUSION OF FACE, SCALP, AND NECK EXCEPT EYE(S) 03/08/2019 Rock Will S00.03XA CONTUSION OF SCALP, INITIAL ENCOUNTER 04/03/2019 SUGEY GUTIERREZ FACC, CELSO FACP CCDS Ot E66.9 OBESITY, UNSPECIFIED 04/03/2019 SUGEY GUTIERREZ FACC, ALI FACP CCDS Ot E78.5 HYPERLIPIDEMIA, UNSPECIFIED 04/03/2019 SUGEY GUTIERREZ FACC, ALI FACP CCDS Ot I10 ESSENTIAL (PRIMARY) HYPERTENSION 04/03/2019 SUGEY GUTIERREZ FACC, ALI FACP CCDS Ot I25.10 ATHSCL HEART DISEASE OF [place] CORONARY 04/03/2019 SUGEY GUTIERREZ FACC, ALI FACP CCDS Ot I34.0 NONRHEUMATIC MITRAL (VALVE) INSUFFICIENC 04/03/2019 SUGEY GUTIERREZ FACC, ALI FACP CCDS Ot R00.2 PALPITATIONS 04/03/2019 SUGEY GUTIERREZ FACC, ALI FACP CCDS Ot R42 DIZZINESS AND GIDDINESS 04/03/2019 SUGEY GUTIERREZ FACC, ALI FACP CCDS Ot E66.9 OBESITY, UNSPECIFIED 04/03/2019 SUGEY GUTIERREZ FACC, ALI FACP CCDS Ot E78.5 HYPERLIPIDEMIA, UNSPECIFIED 04/03/2019 SUGEY GUTIERREZ FACC, ALI FACP CCDS Ot I10 ESSENTIAL (PRIMARY) HYPERTENSION 04/03/2019 SUGEY GUTIERREZ FACC, ALI FACP CCDS Ot I25.10 ATHSCL HEART DISEASE OF [place] CORONARY 04/03/2019 SUGEY GUTIERREZ FACC, ALI FACP CCDS Ot I34.0 NONRHEUMATIC MITRAL (VALVE) INSUFFICIENC 04/03/2019 SUGEY GUTIERREZ FACC, ALI FACP CCDS Ot R00.2 PALPITATIONS 04/03/2019 SUGEY GUTIERREZ FACC, CELSO PEACE CCDS Ot R42 DIZZINESS AND GIDDINESS Procedures Code Description Performed By Performed On 00.81 JAYY OF KNEE REPLACEMENT, TIBIAL COMPON 04/01/2014 00.82 JAYY OF KNEE REPLACEMENT, FEMORAL COMPO 04/01/2014 Results Test Result Range Comprehensive Metabolic Panel - 11/25/16 08:37 Albumin 3.8 g/dL 3.6-5.1 ALP 105 U/L 35-130 ALT 307 U/L 6-45 Anion Gap 14 6-14 AST 446 U/L 2-40 BUN 7 mg/dL 5-25 Calcium 9.1 mg/dL 8.3-10.4 Chloride 111 mmol/L 95-114 CO2 25 mEq/L 22-33 Creat 0.68 mg/dL 0.50-1.50 eGFR 90 mL/min/1.73m2 >59 Globulin 2.3 g/dL 2.3-3.5 Glucose 115 mg/dL 70-110 Osmo 300 280-295 Potassium 3.8 mmol/L 3.5-5.3 Sodium 146 mmol/L 134-148 TBil 0.6 mg/dL 0.2-1.2 TP 6.1 g/dL 6.0-8.3 Direct Bilirubin - 11/25/16 08:37 DBil 0.3 mg/dL 0.0-0.2 Hepatitis Panel, Acute - 11/25/16 08:37 Hep A Ab, IgM NEGATIVE NEGATIVE HBsAg Screen NEGATIVE NEGATIVE Hep B Core Ab, IgM NEGATIVE NEGATIVE Hep C Virus Ab <0.1 S/CO RATIO 0.0-0.9 Hepatic Panel - 11/27/16 13:17 Albumin 4.1 g/dL 3.6-5.1 ALP 95 U/L 35-130 ALT 114 U/L 6-45 AST 34 U/L 2-40 DBil 0.2 mg/dL 0.0-0.2 GGT 183 U/L 5-40 Globulin 2.1 g/dL 2.3-3.5 TBil 0.5 mg/dL 0.2-1.2 TP 6.2 g/dL 6.0-8.3 Pulmonary Function Hemoglobin - 03/06/17 12:08 Hgb 12.8 g/dL 13.0-15.0 Comprehensive Metabolic Panel - 03/12/17 13:50 Albumin 3.7 g/dL 3.6-5.1 ALP 82 U/L 35-130 ALT 24 U/L 6-45 Anion Gap 13 6-14 AST 21 U/L 2-40 BUN 11 mg/dL 5-25 Calcium 9.2 mg/dL 8.3-10.4 Chloride 106 mmol/L 95-114 CO2 30 mEq/L 22-33 Creat 0.68 mg/dL 0.50-1.50 eGFR 90 mL/min/1.73m2 >59 Globulin 2.4 g/dL 2.3-3.5 Glucose 98 mg/dL 70-110 Osmo 299 280-295 Potassium 4.1 mmol/L 3.5-5.3 Sodium 145 mmol/L 134-148 TBil 0.2 mg/dL 0.2-1.2 TP 6.1 g/dL 6.0-8.3 Thyroid Stimulating Hormone - 03/28/17 13:37 TSH 0.92 mIU/mL 0.32-5.00 Urine Culture - 04/19/17 11:15 PRELIM CULTURE RESULTS No Growth 24 hours FINAL CULTURE RESULTS 10,000-20,000 Gram Positive Mixed Sophia Probable Skin Contaminant No Further Workup done MEDIA PLATED Setup at 18:30 on 04/19/2017 CULTURE SOURCE void Urinalysis - 05/14/17 08:57 Icotest N/A Negative Urine Volume Urine Volume Sufficient (10mL) Urine Yeast No Yeast present Urine-Appearance Clear Clear Urine-Bacteria Negative Urine-Bilirubin Negative Negative Urine-Blood Negative Negative Urine-Color Yellow Colorless-Lt. Yellow Urine-Epithelial Cells TNTC Urine-Glucose Negative Negative Urine-Ketones Trace Negative Urine-Leukocytes Negative Negative Urine-Mucus 4+ Urine-Nitrite Negative Negative Urine-Other Urine Saved if Culture Needed (48hrs from time of collection) Urine-pH 7.0 5-8.5 Urine-Protein Trace Negative Urine-RBC Negative Urine-Specific [place] 1.015 1.000-1.030 Urine-WBC Rare/HPF Urobilinogen 1.0 E.U./dL 0.2-1.0 Automated blood complete blood count (hemogram) panel - 05/17/17 09:02 Blood leukocytes automated count (number/volume) 6.6 10*3/uL 4.3-11.0 Blood erythrocytes automated count (number/volume) 4.38 10*6/uL 4.35-5.85 Venous blood hemoglobin measurement (mass/volume) 13.8 [...] Automated blood platelet mean volume measurement 10.4 [foz_[id number]] 7.4-10.4 PT panel in platelet poor plasma [...] Serum or plasma sodium measurement (moles/volume) 145 mmol/L 135-145 Serum or plasma potassium measurement (moles/volume) 3.8 mmol/L 3.6-5.0 Serum or plasma chloride measurement (moles/volume) 106 mmol/L 98-107 Carbon dioxide 27 mmol/L 21-32 Serum or plasma anion gap determination (moles/volume) 12 mmol/L 5-14 Serum or plasma urea nitrogen measurement (mass/volume) 7 mg/dL 7-18 Serum or plasma creatinine measurement (mass/volume) 0.66 mg/dL 0.60-1.30 Serum or plasma urea nitrogen/creatinine mass ratio 11 0 -20 Serum or plasma creatinine measurement with calculation [...] Serum or plasma cholesterol measurement (mass/volume) 169 mg/dL < 200 Serum or plasma cholesterol in HDL measurement (mass/volume) 74 mg/ dL 40-60 Cholesterol in LDL [mass/volume] in serum or plasma by direct assay 69 mg/dL 1-129 Serum or plasma cholesterol in VLDL measurement (mass/volume) 20 mg/ dL 5-40 Methicillin resistant Staphylococcus aureus (MRSA) screening culture - 09:02 Methicillin resistant Staphylococcus aureus (MRSA) screening culture NEG [facility] Comprehensive Metabolic Panel - 07/08/17 12:00 Albumin 3.8 g/dL 3.6-5.1 ALP 82 U/L 35-130 ALT 21 U/L 6-45 Anion Gap 12 6-14 AST 19 U/L 2-40 BUN 7 mg/dL 5-25 Calcium 9.2 mg/dL 8.3-10.4 Chloride 106 mmol/L 95-114 CO2 31 mEq/L 22-33 Creat 0.67 mg/dL 0.50-1.50 eGFR 92 mL/min/1.73m2 >59 Globulin 2.2 g/dL 2.3-3.5 Glucose 80 mg/dL 70-110 Osmo 296 280-295 Potassium 4.3 mmol/L 3.5-5.3 Sodium 145 mmol/L 134-148 TBil 0.3 mg/dL 0.2-1.2 TP 6.0 g/dL 6.0-8.3 Surgical Pathology - 07/15/17 11:58 Surg Path Sent to [facility] Mycoplasma - 12/18/17 10:01 Mycoplasma Negative Negative Thyroid Stimulating Hormone - 02/19/18 10:13 TSH 0.73 mIU/mL 0.32-5.00 [facility] Other Source - 06/19/18 11:52 [facility] Other Source No Fungal elements seen 0.00-0.00 EKG - 07/02/18 13:21 EKG Complete Comprehensive Metabolic Panel - 07/07/18 10:52 Albumin 3.5 g/dL 3.6-5.1 ALP 72 U/L 35-130 ALT 20 U/L 6-45 Anion Gap 18 6-14 AST 32 U/L 2-40 BUN 9 mg/dL 5-25 Calcium 9.0 mg/dL 8.3-10.4 Chloride 106 mmol/L 95-114 CO2 25 mEq/L 22-33 Creat 0.60 mg/dL 0.50-1.50 eGFR 104 mL/min/1.73m2 >59 Globulin 2.5 g/dL 2.3-3.5 Glucose 104 mg/dL 70-110 Osmo 296 280-295 Potassium 4.8 mmol/L 3.5-5.3 Sodium 144 mmol/L 134-148 TBil 0.3 mg/dL 0.2-1.2 TP 6.0 g/dL 6.0-8.3 Surgical Pathology - 07/07/18 12:12 Surg Path Sent to [facility] Quik Strep - 09/03/18 15:04 Quik Strep Negative - confirmation culture set. Negative Thyroid Stimulating Hormone - 10/06/18 08:27 TSH 1.77 mIU/mL 0.32-5.00 Valproic Acid - 10/06/18 08:27 Valproic Acid 69.0 ug/mL 55.0-105.0 BNP - 10/31/18 10:53 BNP 64.10 pg/ml 0.00-100.00 Comprehensive Metabolic Panel - 01/04/19 19:27 Albumin 3.7 g/dL 3.6-5.1 ALP 95 U/L 35-130 ALT 20 U/L 6-45 Anion Gap 15 6-14 AST 18 U/L 2-40 BUN 10 mg/dL 5-25 Calcium 9.0 mg/dL 8.3-10.4 Chloride 111 mmol/L 95-114 CO2 23 mEq/L 22-33 Creat 0.67 mg/dL 0.50-1.50 eGFR 91 mL/min/1.73m2 >59 Globulin 2.6 g/dL 2.3-3.5 Glucose 98 mg/dL 70-110 Osmo 298 280-295 Potassium 4.1 mmol/L 3.5-5.3 Sodium 145 mmol/L 134-148 TBil 0.2 mg/dL 0.2-1.2 TP 6.3 g/dL 6.0-8.3 Thyroid Stimulating Hormone - 01/04/19 20:14 TSH 2.07 mIU/mL 0.32-5.00 Lipid Panel - 01/04/19 20:14 C/HDL 2.4 3.7-6.7 Cholesterol 137 mg/dL 100-240 HDL 58 mg/dL 30-85 LDL-Calculated 57 mg/dL 0-100 Trig 110 mg/dL 35-160 VLDL 22 mg/dL 0-42 Rapid Drug Screen + ETOH,Medical - 01/04/19 21:03 Amphetamine NEGATIVE NEGATIVE Barbiturates NEGATIVE NEGATIVE Benzodiazepines NEGATIVE NEGATIVE Cocaine NEGATIVE NEGATIVE Ethanol, Urine <10.00 mg/dL 20.00-80.00 Marijuana NEGATIVE NEGATIVE Methylenedioxymethamphetamine NEGATIVE NEGATIVE Opiates POSITIVE NEGATIVE Oxycodone NEGATIVE NEGATIVE Phencyclidine NEGATIVE NEGATIVE Propoxyphene NEGATIVE NEGATIVE Tricyclic Antidepressant NEGATIVE NEGATIVE Urine Culture - 01/04/19 21:06 PRELIM CULTURE RESULTS No Growth 24 hours FINAL CULTURE RESULTS No Growth 48 hours MEDIA PLATED Setup at 21:09 on 01/04/2019 CULTURE SOURCE cath sample Valproic Acid - 01/05/19 04:49 Valproic Acid 41.9 ug/mL 55.0-105.0 Comprehensive Metabolic Panel - 01/12/19 04:55 Albumin 3.5 g/dL 3.6-5.1 ALP 86 U/L 35-130 ALT 13 U/L 6-45 Anion Gap 15 6-14 AST 15 U/L 2-40 BUN 11 mg/dL 5-25 Calcium 9.0 mg/dL 8.3-10.4 Chloride 108 mmol/L 95-114 CO2 26 mEq/L 22-33 Creat 0.63 mg/dL 0.50-1.50 eGFR 98 mL/min/1.73m2 >59 Globulin 1.9 g/dL 2.3-3.5 Glucose 104 mg/dL 70-110 Osmo 299 280-295 Potassium 4.3 mmol/L 3.5-5.3 Sodium 145 mmol/L 134-148 TBil 0.3 mg/dL 0.2-1.2 TP 5.4 g/dL 6.0-8.3 Valproic Acid - 01/13/19 04:48 Valproic Acid 83.6 ug/mL 55.0-105.0 Comprehensive Metabolic Panel - 02/06/19 12:46 Albumin 3.9 g/dL 3.6-5.1 ALP 91 U/L 35-130 ALT 21 U/L 6-45 Anion Gap 15 6-14 AST 23 U/L 2-40 BUN 10 mg/dL 5-25 Calcium 9.2 mg/dL 8.3-10.4 Chloride 109 mmol/L 95-114 CO2 24 mEq/L 22-33 Creat 0.73 mg/dL 0.50-1.50 eGFR 83 mL/min/1.73m2 >59 Globulin 2.6 g/dL 2.3-3.5 Glucose 84 mg/dL 70-110 Osmo 294 280-295 Potassium 4.5 mmol/L 3.5-5.3 Sodium 143 mmol/L 134-148 TBil 0.2 mg/dL 0.2-1.2 TP 6.5 g/dL 6.0-8.3 Urinalysis - 02/06/19 13:04 Icotest N/A Negative Urine Volume Urine Volume Sufficient (10mL) Urine-Appearance Clear Clear Urine-Bacteria Negative Urine-Bilirubin Negative Negative Urine-Blood Trace-intact Negative Urine-Color Yellow Colorless-Lt. Yellow Urine-Epithelial Cells None Seen Urine-Glucose Negative Negative Urine-Ketones Negative Negative Urine-Leukocytes Negative Negative Urine-Nitrite Negative Negative Urine-Other Urine Saved if Culture Needed (48hrs from time of collection) Urine-pH 8.5 5-8.5 Urine-Protein Negative Negative Urine-RBC Negative Urine-Specific [place] 1.015 1.000-1.030 Urine-WBC Negative Urobilinogen 0.2 E.U./dL 0.2-1.0 Encounters ACCT No. Visit Date/Time Discharge Status Pt. Type Provider Facility Loc./Unit Complaint [id number] 03/08/2019 04:18:00 03/08/2019 07:28:00 DIS Outpatient Rock Will [facility] [id number] 02/08/2019 00:00:00 02/08/2019 23:59:00 DIS Outpatient Rock Will [id number] 02/06/2019 11:27:00 02/06/2019 14:00:00 DIS Outpatient Nicolette [facility] ER [id number] 01/23/2019 10:00:00 01/23/2019 10:00:00 CAN Outpatient Eboh, Lloyd [id number] 01/16/2019 00:00:00 01/16/2019 00:00:00 CAN Outpatient Eboh, Lloyd [id number] 01/05/2019 00:40:00 01/14/2019 11:05:00 [facility] [id number] 10/31/2018 10:48:00 10/31/2018 23:59:00 DIS Outpatient Carlos Char [id number] 10/06/2018 08:22:00 10/06/2018 23:59:00 DIS Outpatient AMERICO COWART [id number] 09/03/2018 15:00:00 09/03/2018 23:59:00 DIS Outpatient Char Gonzalez [id number] 08/01/2018 10:22:00 08/01/2018 23:59:00 DIS Outpatient JALEESA BIRCH [id number] 07/07/2018 09:29:00 07/07/2018 13:25:00 DIS Outpatient Johann Wright [id number] 07/02/2018 12:49:00 07/02/2018 23:59:00 DIS Outpatient Johann Wright [id number] 06/19/2018 11:47:00 06/19/2018 23:59:00 DIS Outpatient Char Gonzalez [id number] 04/28/2018 10:09:00 04/28/2018 23:59:00 DIS Outpatient CarlosChar [id number] 02/19/2018 10:08:00 02/19/2018 23:59:00 DIS Outpatient Char Gonzalez [id number] 12/18/2017 09:58:00 12/18/2017 23:59:00 DIS Outpatient Char Gonzalez [id number] 09/03/2017 10:05:00 09/03/2017 23:59:00 DIS Outpatient JALEESA BIRCH [id number] 07/30/2017 08:31:00 07/30/2017 23:59:00 DIS Outpatient MESFIN MICHELLE [id number] 07/15/2017 00:00:00 07/15/2017 13:20:00 DIS Outpatient Johann Wright [id number] 07/11/2017 15:57:00 07/11/2017 23:59:00 DIS Outpatient MESFIN MICHELLE [id number] 07/10/2017 11:45:00 07/10/2017 23:59:00 DIS Outpatient Char Gonzalez [id number] 2017 11:52:00 2017 23:59:00 DIS Outpatient Johann Wright [id number] 06/28/2017 09:43:00 06/28/2017 23:59:00 DIS Outpatient Char Gonzalez [id number] 05/14/2017 08:50:00 05/14/2017 23:59:00 DIS Outpatient Char Gonzalez [id number] 04/29/2017 14:55:00 04/29/2017 23:59:00 DIS Outpatient Char Gonzalez [id number] 04/23/2017 09:16:00 04/23/2017 23:59:00 DIS Outpatient Char Gonzalez [id number] 04/19/2017 11:15:00 04/19/2017 23:59:00 DIS Outpatient Char Gonzalez [id number] 04/08/2017 00:00:00 04/08/2017 23:59:00 DIS Outpatient Johann Wright [id number] 03/28/2017 13:34:00 03/28/2017 23:59:00 DIS Outpatient Char Gonzalez [id number] 03/12/2017 13:25:00 03/12/2017 23:59:00 DIS Outpatient Johann Wright [id number] 03/06/2017 11:30:00 03/06/2017 23:59:00 DIS Outpatient Char Gonzalez [id number] 11/27/2016 13:12:00 11/27/2016 23:59:00 DIS Outpatient TIFFANIE OJEDA [id number] 11/25/2016 08:16:00 11/25/2016 10:34:00 DIS Outpatient LYNETTE [facility] ER [id number] 11/13/2016 17:10:00 11/13/2016 18:04:00 DIS Outpatient Daryl [facility] ER [id number] 11/10/2016 12:01:00 11/10/2016 13:15:00 DIS Outpatient Olvin Horton [id number] 11/10/2016 12:09:22 Document Registration [id number] 04/02/2019 09:52:00 04/02/2019 23:59:59 CLS Outpatient SUGEY GUTIERREZ FACCCELSO FACP CCDS [facility] CARD PALPITATIONS [id number] 08/15/2018 08:39:00 08/15/2018 23:59:59 CLS Outpatient LUANNE OLSEN MD [facility] RAD CHRONIC SINUSITIS [id number] 04/30/2018 10:19:00 04/30/2018 23:59:59 CLS Outpatient MARIA TERESA JIMENEZ DO [facility] CHRONIC DAILY HEADACHES;GAIT DISTURBANCE;WEAKNESS [id number] 11/22/2017 12:53:00 12/04/2017 14:04:00 DIS Outpatient BERTRAM GRANADO CLAM SHUCKER-C [facility] RE[facility] P/O R WRIST SCOPE DEBRIDEMENT;AIN RELEASE;ECTR [id number] 05/17/2017 08:35:00 05/17/2017 15:25:00 DIS Outpatient GARCÍA GUTIERREZ, SELENA Geiger [facility] CATH ABN STRESS,CAD,HTN,HLP [id number] 05/01/2017 07:51:00 05/01/2017 23:59:59 CLS Outpatient ANGELA CHEN [facility] CARD I25.10,I10, E78.2 [id number] 04/29/2017 08:16:00 04/29/2017 23:59:59 CLS Outpatient ANGELA CHEN [facility] CARD I25.10,I10, E78.2 [id number] 03/07/2017 09:43:00 03/15/2017 13:50:00 DIS Outpatient BARTOLOME LUCIANO APRN [facility] RE[facility] S/P R WRIST ORIF [id number] 11/01/2016 20:10:00 11/02/2016 06:05:00 DIS Outpatient AMERICO COWART MD [facility] SLEEP SNORING, HTN, INSOMINA , EDS, MOOD DISORDER, DAVIS [id number] 03/28/2016 12:39:00 04/11/2016 11:40:00 DIS Outpatient ANKITA, BARTOLOME Shelby ESPITIA [facility] RRF MIDDLE PHALANX FX [id number] 12/22/2015 08:34:00 01/03/2016 15:23:00 DIS Outpatient EDWARD SANCHEZ MD [facility] REH[facility] R TKA REVISION W/ POST OP FALLS [id number] 11/23/2015 12:47:00 11/24/2015 00:01:00 DIS Outpatient EDWARD SANCHEZ MD [facility] REH[facility] R TKA REVISION W/ POST OP FALLS [id number] 11/15/2015 08:02:00 11/15/2015 23:59:59 CLS Outpatient ALBERT ALMARAZ DPM [facility] RAD TARSAL TUNNEL SYNDROME [id number] 10/14/2015 11:04:00 10/14/2015 13:12:00 DIS Emergency NIRMAL JACKSON MD [facility] ER FALL/HEAD INJ [id number] 08/24/2015 10:23:00 08/24/2015 00:01:00 DIS Outpatient EDWARD SANCHEZ MD [facility] REH[facility] R TKA REVISION W/ POST OP FALLS [id number] 03/21/2015 07:46:00 03/21/2015 23:59:59 CLS Outpatient BRANDIN LOZADA MD [facility] RT MEMORY LOSS, HEADACHE [id number] 03/08/2015 08:48:00 03/17/2015 09:55:00 DIS Outpatient EDWARD SANCHEZ MD [facility] BILATERAL TKR [id number] 12/22/2014 08:05:00 12/22/2014 16:15:00 DIS Outpatient SELENA MARIANO MD [facility] CATH ABNORMAL STRESS, CAD,CP, HTN,HLP [id number] 12/13/2014 07:20:00 12/13/2014 23:59:59 CLS Outpatient SELENA MARIANO MD [facility] CARD CP,HTN,HLP [id number] 10/28/2014 08:35:00 10/28/2014 23:59:59 CLS Outpatient SELENA MARIANO MD [facility] CARD CP,HTN,HLP [id number] 08/06/2014 16:19:00 08/06/2014 17:00:00 DIS Outpatient EDWARD SANCHEZ MD [facility] RE[facility] S/P R TKR [id number] 07/20/2014 08:12:00 08/03/2014 00:01:00 DIS Outpatient EDWARD SANCHEZ MD [facility] RE[facility] S/P R TKR [id number] 07/01/2014 12:24:00 07/01/2014 15:40:00 DIS Emergency BRIANNE JOHNSON [facility] ER FALL/HEAD INJURY [id number] 01/15/2014 08:54:00 04/15/2014 00:01:00 DIS Outpatient SELENA MARIANO MD [facility] CARD PALPITATION,HTN [id number] 04/13/2014 12:11:00 04/13/2014 23:59:59 CLS Outpatient SATTERYUAN BATEMAN DO [facility] RAD LEG SWELLING [id number] 04/01/2014 10:03:00 04/05/2014 13:50:00 DIS Inpatient GALTERYUAN BATEMAN DO [facility] SURGICAL RIGHT KNEE PAIN; FAILED DEVICE;INSTABILITY [id number] 03/23/2014 13:21:00 03/23/2014 23:59:59 CLS Outpatient GALTERYUAN BATEMAN DO [facility] PREOP RIGHT KNEE PAIN; FAILED DEVICE;INSTABILITY [id number] 12/01/2013 12:41:00 12/24/2013 14:57:00 DIS Outpatient LUANNE BHARDWAJ DO [facility] LUMBAR DDD, LUMBAR RADICULOPATHY [id number] 04/07/2013 08:12:00 04/07/2013 23:59:59 CLS Outpatient SELENA MRAIANO MD [facility] CARD PALPITATIONS, CP [id number] 04/07/2019 10:00:00 PEN Preadmit SUGEY GUTIERREZ FACCELSO Ambrosio FACP CCDS [facility] CATH PALPITATIONS,CAD,DIZZINESS,HTN [id number] 04/16/2014 09:00:00 Document Registration [id number] 04/24/2012 13:22:00 Document Registration [id number] 04/23/2012 11:33:00 Document Registration [id number] 11/07/2011 10:53:00 Document Registration [id number] 08/20/2011 05:33:00 Document Registration [id number] 08/17/2011 08:45:00 Document Registration [id number] 08/15/2011 15:09:00 Document Registration [id number] 08/13/2011 09:40:00 Document Registration [id number] 08/07/2011 08:26:00 Document Registration
[2019-04-07 08:54] VITALS: BP 137/76
--- NOTE | 2019-04-07 09:23 | Cardiac Procedure Note-CS/ASA ---
Pre-Procedure Note Pre-Op Procedure Note H&P Reviewed The H&P was reviewed, patient examined and no changes noted. Date H&P Reviewed: April 07, 2019 Time H&P Reviewed: 09:10 Conscious Sedation Pre-Proced Time 09:10 ASA Score 3 For ASA 3 and 4: Consider anesthesia and medical clearance. Also, for patients with a history of failed moderate sedation consider anesthesia. Airway Lungs Heart ASA score ASA 1: a normal healthy patient ASA 2: a patient with a mild systemic disease (mid diabetes, controlled hypertension, obesity ASA 3: a patient with a severe systemic disease that limits activity (angina , COPD, prior Myocardial infarction) ASA 4: a patient with an incapacitating disease that is a constant threat to life (CHF, renal failure) ASA 5: a moribund patient not expected to survive 24 hrs. (ruptured aneurysm) ASA 6: a declared brain- patient whose organs are being harvested. For emergent operations, add the letter E after the classification Mallampati Classification Grade 2 Sedation Plan Analgesia, Amnesia, Plan communicated to team members, Discussed options with patient/fam, Discussed risks with patient/fam The patient is an appropriate candidate to undergo the planned procedure, sedation, and anesthesia. The patient immediately re-assessed prior to indication. CELSO MAYES MD FACP FAC CCDS April 07, 2019 09:23
--- NOTE | 2019-04-07 13:46 | OPERATIVE REPORT ---
DATE OF SERVICE: 04/07/2019 PREOPERATIVE DIAGNOSIS: Palpitations. POSTOPERATIVE DIAGNOSIS: Palpitations. PROCEDURE PERFORMED: Implantable loop recorder implantation. DESCRIPTION OF PROCEDURE: The patient is a 53-year-old lady, who has palpitations that are infrequent, but quite bothersome to her. She also has a history of cryptogenic stroke. Implantable loop recorder implantation was carried out today after having obtained an informed consent. [facility]. The left prepectoral area was prepared and draped in usual sterile fashion. Lidocaine 1% was used for local anesthesia. Using the tools provided with the implantable loop recorder, we made a subcutaneous pocket anterior to the fourth intercostal space into which the device was placed. The device is [employer] LINQ with serial #[id number]. She tolerated the procedure well. The incision was closed using Dermabond and Steri-Strips. Job ID: [id number] DocumentID: [id number] Dictated Date: 04/07/2019 09:34:36 Steam Crane Operator Date: 04/07/2019 13:46:25 Dictated By: CELSO MAYES MD, MA, FACP, FACC,
== END 2019-04-07 09:53 | disposition home or self-care (01) ==
LOC: CATH 08:39
PROVIDERS: ATTEND Internal Medicine Cardiovascular Disease
DX: R00.2 Palpitations (principal); R07.89 Other chest pain; I25.10 Atherosclerotic heart disease of native coronary artery without angina pectoris; I10 Essential (primary) hypertension; E78.5 Hyperlipidemia, unspecified; I45.10 Unspecified right bundle-branch block; E11.9 Type 2 diabetes mellitus without complications; E03.9 Hypothyroidism, unspecified; J45.909 Unspecified asthma, uncomplicated; F41.9 Anxiety disorder, unspecified; F32.9 Major depressive disorder, single episode, unspecified; M79.7 Fibromyalgia; E66.9 Obesity, unspecified; Z68.37 Body mass index [BMI] 37.0-37.9, adult; Z86.73 Personal history of transient ischemic attack (TIA), and cerebral infarction without residual deficits; Z79.82 Long term (current) use of aspirin; Z79.899 Other long term (current) drug therapy
CPT/HCPCS: 33285

== ENCOUNTER → 2019-05-25 | Outpatient (CLI) | payer MEDICARE ==
[2019-05-25 10:09] LABS: ABG BASE EXCESS 3.8 MMOL/L (-2.5-2.5); ABG OXYGEN SATURATION 97 % (94-100); ABG PCO2 42 MMHG (35-45); ABG PH 7.43 (7.37-7.43); ABG PO2 78 MMHG (79-93); ABG TCO2 29.3 MMOL/L (21.0-31.0)
[2019-05-25 10:10] LABS: ALLENS TEST YES-POS
[2019-05-25 10:11] LABS: INSPIRED O2 ROOM AIR; PATIENT TEMP 97.5; VENTILATOR NO
== END ==
LOC: RT 09:37
PROVIDERS: ATTEND Nurse Practitioner Family
DX: R06.83 Snoring (principal); G47.36 Sleep related hypoventilation in conditions classified elsewhere; G47.50 Parasomnia, unspecified; G47.10 Hypersomnia, unspecified; J45.909 Unspecified asthma, uncomplicated; R05 Cough; R06.89 Other abnormalities of breathing; R06.00 Dyspnea, unspecified
CPT/HCPCS: 36600; 82805

== ENCOUNTER 2019-07-23 20:20 | Outpatient (CLI) | payer MEDICARE, OTHER | END 2019-07-24 06:40 | disposition home or self-care (01) | LOC: SLEEP 20:20 | PROVIDERS: ATTEND Nurse Practitioner Family | DX: G47.10 Hypersomnia, unspecified (principal); G47.36 Sleep related hypoventilation in conditions classified elsewhere; G47.50 Parasomnia, unspecified; J45.909 Unspecified asthma, uncomplicated | CPT/HCPCS: 95810 ==

== ENCOUNTER → 2019-07-24 | Outpatient (CLI) | payer MEDICARE, OTHER ==
[~2019-07-24] MED LIST changes: +RT-ALBUTEROL SULF 2.5 MG/3 ML PRE-MIX VIAL INH ONE; +RT-ALBUTEROL SULF 2.5 MG/3 ML PRE-MIX VIAL ONE
--- NOTE | 2019-07-24 09:59 | Diagnostic Imaging Report ---
PROCEDURE: CT chest without contrast. TECHNIQUE: Multiple contiguous axial images were obtained through the chest without the use of intravenous contrast. Auto Exposure Controls were utilized during the CT exam to meet ALARA standards for radiation dose reduction. INDICATION: Asthma. There are no prior CT chest examinations available for comparison. The plain film examination of the chest performed 05/17/2017 revealed mild cardiomegaly that failed to show any sign of acute cardiopulmonary abnormality. On this exam the heart size is borderline enlarged. There are no coronary calcifications evident. The aorta is not abnormally dilated. There is no obvious mediastinal or hilar adenopathy. The lungs are clear generally clear and well aerated. There is a small area of increased density in the medial aspect of the right lower lobe near an osteophyte arising from one of the lower thoracic vertebra. I suspect this is related to mild compressive atelectasis. There is no sign of failure, pneumonia or pleural effusion. There is no parenchymal lung mass identified. The right lobe of the thyroid is surgically absent. The left lower extremity unremarkable. There is no obvious breast mass. There is a loop recorder device in the medial aspect of the left breast. The sections of the upper abdomen failed to show any sign of an acute abnormality. The gallbladder is surgically absent. There is mild compression deformity at the superior endplate of T12. I suspect this injury is long-standing in nature. Clinical followup is recommended. There is no acute bony abnormality identified otherwise. IMPRESSION: 1. There is no evidence for an acute cardiopulmonary abnormality. 2. The heart is borderline enlarged. 3. The right lobe of thyroid has been resected and there has been a prior cholecystectomy. 4. The mild compression deformity of the inferior endplate of T12 is most likely long-standing in nature. If there is clinical concern regarding an acute abnormality however, the MRI would be recommended for further study. Dictated by: Dictated on workstation # [id number]
== END ==
LOC: RAD 06:57
PROVIDERS: ATTEND Nurse Practitioner Family
DX: J45.909 Unspecified asthma, uncomplicated (principal); I51.7 Cardiomegaly; M43.8X4 Other specified deforming dorsopathies, thoracic region; Z95.818 Presence of other cardiac implants and grafts; Z90.49 Acquired absence of other specified parts of digestive tract; Z90.89 Acquired absence of other organs
CPT/HCPCS: 71250

== ENCOUNTER 2019-12-07 13:40 | Emergency (ER) | payer MEDICARE, OTHER ==
[~2019-12-07] VITALS: Ht 180.3 cm; Wt 119.7 kg
[~2019-12-07 13:40] MED LIST changes: -RT-ALBUTEROL SULF 2.5 MG/3 ML PRE-MIX VIAL INH ONE; -RT-ALBUTEROL SULF 2.5 MG/3 ML PRE-MIX VIAL ONE
--- NOTE | 2019-12-07 14:34 | Diagnostic Imaging Report ---
INDICATION: Increasing dyspnea. EXAMINATION: PA and lateral views of the chest are obtained with comparison made to study of 05/17/2017. FINDINGS: Heart size and pulmonary vascularity are within normal limits. There is no evidence of pneumothorax or consolidation. Electronic monitoring device is seen within the left anterior chest wall. There is no pneumothorax, pleural fluid, or other adverse change. IMPRESSION: No acute abnormality is detected. Dictated by: Dictated on workstation # [id number]
[2019-12-07 14:53] LABS: BILIRUBIN,URINE NEGATIVE (NEGATIVE); CLARITY,URINE CLEAR; COLOR,URINE YELLOW; GLUCOSE, URINE (UA) NEGATIVE (NEGATIVE); KETONES,URINE NEGATIVE (NEGATIVE); LEUKOCYTE ESTERASE ,URINE NEGATIVE (NEGATIVE); NITRITE,URINE NEGATIVE (NEGATIVE); PH,URINE 5.5 (5-9); PROTEIN,URINE NEGATIVE (NEGATIVE)
[2019-12-07 15:06] LABS: BACTERIA,URINE TRACE /HPF; RBC,URINE RARE /HPF; SQUAMOUS EPITHELIAL CELL,UR RARE /HPF; WBC,URINE RARE /HPF
[2019-12-07 15:26] LABS: BASOPHILS % (AUTO) 0 % (0-10); EOSINOPHILS # (AUTO) 0.3 10^3/uL (0.0-0.3); EOSINOPHILS % (AUTO) 4 % (0-10); HEMATOCRIT 39 % (35-52); HEMOGLOBIN 12.6 G/DL (11.5-16.0); LYMPHOCYTES % (AUTO) 39 % (12-44); MEAN CORPUSCULAR HEMOGLOBIN 31 PG (25-34); MEAN CORPUSCULAR HGB CONC 33 G/DL (32-36); MEAN CORPUSCULAR VOLUME 97 FL (80-99); MEAN PLATELET VOLUME 10.8 FL (7.4-10.4); MONOCYTES # (AUTO) 0.8 X 10^3 (0.0-1.0); MONOCYTES % (AUTO) 10 % (0-12); NEUTROPHILS # (AUTO) 3.6 X 10^3 (1.8-7.8); NEUTROPHILS % (AUTO) 47 % (42-75); PLATELET COUNT 225 10^3/uL (130-400); RED CELL DISTRIBUTION WIDTH 12.7 % (10.0-14.5); WHITE BLOOD COUNT 7.7 10^3/uL (4.3-11.0)
[2019-12-07 15:48] LABS: PROTHROMBIN TIME PATIENT 13.3 SEC (12.2-14.7)
[2019-12-07 15:49] LABS: ALANINE AMINOTRANSFERASE 18 U/L (0-55); ALBUMIN 3.6 GM/DL (3.2-4.5); ALKALINE PHOSPHATASE 80 U/L (40-136); BILIRUBIN,TOTAL 0.2 MG/DL (0.1-1.0); BUN/CREATININE RATIO 15; CARBON DIOXIDE 33 MMOL/L (21-32); CHLORIDE 100 MMOL/L (98-107); CREATINE KINASE 66 U/L (29-168); GFR ESTIMATED > 60; GLUCOSE 139 MG/DL (70-105); MAGNESIUM 2.1 MG/DL (1.6-2.4); POTASSIUM 4.1 MMOL/L (3.6-5.0); SODIUM 143 MMOL/L (135-145); TOTAL PROTEIN 6.5 GM/DL (6.4-8.2)
[2019-12-07 16:09] LABS: CREATINE KINASE MB 2.4 NG/ML (<6.6); TSH (THYROID ANALYZER) 1.48 UIU/ML (0.35-4.94)
[2019-12-07] MEDS ORDERED: HOLD METFORMIN - RECEIVED CONTRAST 20 ML VIAL IV SCH (16:30)
[2019-12-07] MEDS ORDERED: IOHEXOL 350 MG/ML 100 ML (OMNIPAQUE 350) VIAL IV ONE (16:30)
[2019-12-07] MEDS ORDERED: CATHETER FLUSH 10 ML SYR IV PRN (16:30)
[2019-12-07] MEDS ORDERED: NS 100 ML (IVPB) BAG IV ONE (16:30)
--- NOTE | 2019-12-07 17:25 | Diagnostic Imaging Report ---
PROCEDURE: CT angiography of the chest with contrast. TECHNIQUE: Multiple contiguous axial images were obtained through the chest after uneventful bolus administration of intravenous contrast. 3D reconstructed CTA MIP acquisitions were also performed. Auto Exposure Controls were utilized during the CT exam to meet ALARA standards for radiation dose reduction. INDICATION: Shortness of air and cough. COMPARISON: 07/24/2019. FINDINGS: There is no evidence of acute pulmonary embolus to the first subsegmental division of the pulmonary arteries. Heart size is within normal limits. There is no large pericardial effusion. No pathologically enlarged or morphologically abnormal adenopathy is seen within the mediastinum, luiz, nor axillae. Evaluation of the lung gaitan demonstrates no focal consolidation, pleural effusion, nor pneumothorax. Several faint micronodular densities are noted within the posteroinferior margins of the right lower lobe and measure approximately 4 mm (image 77 and 79, series 302). These are stable when compared to 07/24/2019. Similar appearance is also noted in the posterior left lower lobe (image 73, series 302), although this is much less conspicuous on the prior exam. Osseous structures show age-related degenerative changes. No acute bony abnormalities are seen. Included portions of the upper abdomen show hypodense appearance to the liver suggestive of underlying hepatic steatosis. IMPRESSION: 1. No evidence of acute pulmonary embolus to the first subsegmental division of the pulmonary arteries. 2. Small micronodules within the posteroinferior margins of the bilateral lower lobes. Again, these appear stable on the right when compared to 07/24/2019, but appear more prominent on the left. Six-month follow-up is advised. Dictated by: Dictated on workstation # [id number]
[2019-12-07] MEDS ORDERED: METH4TAB PO (17:32)
--- NOTE | 2019-12-07 17:32 | ED Respiratory ---
General Chief Complaint: Respiratory Problems Stated Complaint: SOA Nursing Triage Note: PT AMB TO RM 6 WITH COMPLAINT OF SOA X1 MONTH. STATES SHE CALLED DR THOMAS'S OFFICE AND WAS INSTRUCTED TO COME TO ER. Allergies and Home Medications Allergies Coded Allergies: morphine (Unverified Allergy, Mild, ITCHING, 03/23/14) naproxen (Unverified Allergy, Mild, ITCHING, 03/23/14) Home Medications Albuterol 8.5 Gm Hfa.aer.ad, 2 PUFF INH Q4H PRN for SHORTNESS OF BREATH, (Reported) Albuterol/Ipratropium 4 Gm Aero, 2 PUFF IH DAILY, (Reported) Aspirin 81 Mg Tabec, 81 MG PO DAILY, (Reported) Butalb/Acetaminophen/Caffeine 1 Each Capsule, 2 CAP PO Q4H PRN for HEADACHE, (Reported) Cariprazine Hydrochloride 4.5 Mg Capsule, 4.5 MG PO DAILY, (Reported) Cetirizine Hcl 10 Mg Tablet, 10 MG PO DAILY, (Reported) Divalproex Sodium 250 Mg Tablet.dr, 250 MG PO BID, (Reported) Ferrous Sulfate 325 Mg Tablet, 325 MG PO BID, (Reported) Furosemide 20 Mg Tablet, 20 MG PO DAILY PRN for SWELLING, (Reported) Gabapentin 800 Mg Tablet, 800 MG PO TID, (Reported) Iron Ps Cmplx/Vit B12/FA 1 Each Capsule, 1 CAP PO BID, (Reported) Levothyroxine Sodium 88 Mcg Tablet, 88 MCG PO DAILY, (Reported) Loratadine 10 Mg Tablet, 10 MG PO HS, (Reported) Lubiprostone 24 Mcg Capsule, 24 MCG PO SuMoWeThFr, (Reported) Metoprolol Succinate 25 Mg Tab.sr.24h, 25 MG PO DAILY, (Reported) Multivitamin 1 Each Tablet, 1 TAB PO DAILY, (Reported) Ondansetron HCl 8 Mg Tablet, 8 MG PO Q8H PRN for NAUSEA/VOMITING-1ST LINE, (Reported) Pantoprazole Sodium 40 Mg Tablet.dr, 40 MG PO DAILY, (Reported) Paroxetine HCl 30 Mg Tablet, 60 MG PO DAILY, (Reported) TAKES 2 (30MG) TABLETS Potassium Chloride 10 Meq Tab.prt.sr, 20 MEQ PO 1200, (Reported) TAKES 2 (10MEQ) TABLETS Simvastatin 40 Mg Tablet, 40 MG PO HS, (Reported) Sucralfate 1 G Tablet, 1 GM PO QID, (Reported) Tiotropium [place] 1 Inh Aerp, 1 CAP INH DAILY, (Reported) Trihexyphenidyl HCl 5 Mg Tablet, 5 MG PO TID, (Reported) Past Qsvifap-Xusmjv-Bmyffn Hx Patient Social History Alcohol Use: Denies Use Recreational Drug Use: No Smoking Status: Never a Smoker Recent Foreign Travel: No Contact w/Someone Who Travel: No Recent Infectious Disease Expo: No Immunizations Up To Date Tetanus Booster (TDap): Less than 5yrs PED Vaccines UTD: No Date of Pneumonia Vaccine: Aug 27, 2016 Date of Influenza Vaccine: Aug 03, 2015 Past Medical History Surgeries: Yes (SINUS,) Breast, Gallbladder, Hysterectomy, Orthopedic, Thyroidectomy Respiratory: Yes Asthma Cardiac: Yes Palpitations Neurological: No Reproductive Disorders: No Female Reproductive Disorders: Denies Sexually Transmitted Disease: No HIV/AIDS: No Gastrointestinal: Yes Gastroesophageal Reflux, Irritable Bowel Musculoskeletal: Yes Arthritis Endocrine: Yes Hypothyroidsim, Diabetes, Non-Insulin dep Loss of Vision: Denies Hearing Impairment: Denies Cancer: No Psychosocial: Yes Depression Integumentary: Yes Psoriasis Blood Disorders: No Family Medical History Alcoholism Cancer Cancer of colon Cataract Chest pain Family history: Arthritis Family history: Cardiovascular disease Family history: Diabetes mellitus Family history: Gastrointestinal disease Family history: Hypertension Heart disease Malignant neoplasm of lung Myocardial infarction Seizure disorder No Family History of: Abdominal aortic aneurysm Dixmont's disease Aphasia Congenital heart disease Congestive heart failure Cystic fibrosis Dementia Dysphagia Family history: Allergy Family history: Alzheimer's disease Family history: Asthma Family history: Breast disease Family history: Coronary thrombosis Family history: Glaucoma Family history: Osteoporosis Family history: Thyroid disorder Headache Hearing loss Hereditary disease History of - anemia History of - disorder History of - respiratory disease History of drug abuse Human immunodeficiency virus (HIV) seropositivity Hypercholesterolemia Infertile Kidney disease Parkinson's disease Prostate cancer Psychotic disorder Stroke Tuberculosis Visual impairment Physical Exam Vital Signs - First Documented 12/07/19 13:45 Temp 36.7 Pulse 75 Resp 16 B/P (MAP) 127/78 (94) Pulse Ox 98 O2 Delivery Room Air Capillary Refill : Less Than 3 Seconds Height: 5'11.50" Weight: 272lbs. 0.0oz. 123.238835dn; 36.00 BMI Method:Stated Progress/Results/Core Measures Suspected Sepsis Recent Fever Within 48 Hours: No Infection Criteria Present: None New/Unexplained Altered Menta: No Sepsis Screen: No Definite Risk SIRS Temperature: Pulse: 75 Respiratory Rate: 16 Laboratory Tests 12/07/19 15:20: White Blood Count 7.7 Blood Pressure 127 /78 Mean: 94 Laboratory Tests 12/07/19 15:20: Creatinine 0.80, INR Comment 1.0, Platelet Count 225, Total Bilirubin 0.2 Results/Orders Lab Results Laboratory Tests Test 12/07/19 14:38 12/07/19 15:20 Range/Units Urine Color YELLOW Urine Clarity CLEAR Urine pH 5.5 5-9 Urine Specific [place] 1.010 L 1.016-1.022 Urine Protein NEGATIVE NEGATIVE Urine Glucose (UA) NEGATIVE NEGATIVE Urine Ketones NEGATIVE NEGATIVE Urine Nitrite NEGATIVE NEGATIVE Urine Bilirubin NEGATIVE NEGATIVE Urine Urobilinogen 0.2 < = 1.0 MG/DL Urine Leukocyte Esterase NEGATIVE NEGATIVE Urine RBC (Auto) 1+ H NEGATIVE Urine RBC RARE /HPF Urine WBC RARE /HPF Urine Squamous Epithelial Cells RARE /HPF Urine Crystals NONE /LPF Urine Bacteria TRACE /HPF Urine Casts NONE /LPF Urine Mucus NEGATIVE /LPF Urine Culture Indicated NO White Blood Count 7.7 4.3-11.0 10^3/uL Red Blood Count 4.01 L 4.35-5.85 10^6/uL Hemoglobin 12.6 11.5-16.0 G/DL Hematocrit 39 35-52 % Mean Corpuscular Volume 97 80-99 FL Mean Corpuscular Hemoglobin 31 25-34 PG Mean Corpuscular Hemoglobin Concent 33 32-36 G/DL Red Cell Distribution Width 12.7 10.0-14.5 % Platelet Count 225 130-400 10^3/uL Mean Platelet Volume 10.8 H 7.4-10.4 FL Neutrophils (%) (Auto) 47 42-75 % Lymphocytes (%) (Auto) 39 12-44 % Monocytes (%) (Auto) 10 0-12 % Eosinophils (%) (Auto) 4 0-10 % Basophils (%) (Auto) 0 0-10 % Neutrophils # (Auto) 3.6 1.8-7.8 X 10^3 Lymphocytes # (Auto) 3.0 1.0-4.0 X 10^3 Monocytes # (Auto) 0.8 0.0-1.0 X 10^3 Eosinophils # (Auto) 0.3 0.0-0.3 10^3/uL Basophils # (Auto) 0.0 0.0-0.1 10^3/uL Prothrombin Time 13.3 12.2-14.7 SEC INR Comment 1.0 0.8-1.4 Activated Partial Thromboplast Time 29 24-35 SEC Sodium Level 143 135-145 MMOL/L Potassium Level 4.1 3.6-5.0 MMOL/L Chloride Level 100 98-107 MMOL/L Carbon Dioxide Level 33 H 21-32 MMOL/L Anion Gap 10 5-14 MMOL/L Blood Urea Nitrogen 12 7-18 MG/DL Creatinine 0.80 0.60-1.30 MG/DL Estimat Glomerular Filtration Rate > 60 BUN/Creatinine Ratio 15 Glucose Level 139 H 70-105 MG/DL Calcium Level 9.0 8.5-10.1 MG/DL Corrected Calcium 9.3 8.5-10.1 MG/DL Magnesium Level 2.1 1.6-2.4 MG/DL Total Bilirubin 0.2 0.1-1.0 MG/DL Aspartate Amino Transf (AST/SGOT) 15 5-34 U/L Alanine Aminotransferase (ALT/SGPT) 18 0-55 U/L Alkaline Phosphatase 80 40-136 U/L Total Creatine Kinase 66 29-168 U/L Creatine Kinase MB 2.4 <6.6 NG/ML Myoglobin 37.9 10.0-92.0 NG/ML Troponin I < 0.028 <0.028 NG/ML B-Type Natriuretic Peptide 51.0 <100.0 PG/ML Total Protein 6.5 6.4-8.2 GM/DL Albumin 3.6 3.2-4.5 GM/DL TSH [place] Testing 1.48 0.35-4.94 UIU/ML My Orders Orders - NADIA CHRIS DO Ed Iv/Invasive Line Start (12/07/19 14:02) Ekg Tracing (12/07/19 14:02) Monitor-Rhythm Ecg Trace Only (12/07/19 14:02) Chest Pa/Lat (2 View) (12/07/19 14:02) BNP (12/07/19 14:02) Cbc With Automated Diff (12/07/19 14:02) Comprehensive Metabolic Panel (12/07/19 14:02) Creatine Kinase (12/07/19 14:02) Creatine Kinase Mb (12/07/19 14:02) Magnesium (12/07/19 14:02) Protime With Inr (12/07/19 14:02) Partial Thromboplastin Time (12/07/19 14:02) Thyroid Analyzer (12/07/19 14:02) Ua Culture If Indicated (12/07/19 14:02) Myoglobin Serum (12/07/19 14:02) Troponin I (12/07/19 14:02) Ct Angio Chest W (12/07/19 16:03) Iohexol Injection (Omnipaque 350 Mg/Ml 1 (12/07/19 16:30) Received Contrast (Hold Metformin- Contr (12/07/19 16:30) Sodium Chloride Flush (Catheter Flush Sy (12/07/19 16:30) Ns (Ivpb) (Sodium Chloride 0.9% Ivpb Bag (12/07/19 16:30) Medications Given in ED Current Medications Medications Dose Ordered Sig/Ray Route Start Time Stop Time Status Last Admin Dose Admin Iohexol 100 ml ONCE ONCE IV 12/07/19 16:30 12/07/19 16:31 DC 12/07/19 17:08 85 ML Sodium Chloride 10 ml NEEDED PRN IV 12/07/19 16:30 12/07/19 17:08 10 ML Sodium Chloride 100 ml ONCE ONCE IV 12/07/19 16:30 12/07/19 16:31 DC 12/07/19 17:08 80 ML Vital Signs/I&O 12/07/19 13:45 Temp 36.7 Pulse 75 Resp 16 B/P (MAP) 127/78 (94) Pulse Ox 98 O2 Delivery Room Air Capillary Refill : Less Than 3 Seconds Blood Pressure Mean: 94 Departure Impression Primary Impression: Dyspnea on minimal exertion Disposition: 01 HOME, SELF-CARE Condition: Stable Departure-Patient Inst. Referrals: CHELY THOMAS LISA A MD (PCP/Family) Primary Care Physician Patient Instructions: Shortness of Breath (Dyspnea) (DC) Add. Discharge Instructions: CONTINUE YOUR REGULAR MEDICATIONS PRESCRIBED GET YOUR VENTOLIN INHALER FILLED AND USE DIRECTED FOLLOW UP WITH DR. THOMAS THIS WEEK FOR FURTHER CARE All discharge instructions reviewed with patient and/or family. Voiced understanding. Scripts Methylprednisolone (Medrol) 4 Mg Tab.ds.pk 4 MG PO UD, #1 PKG Prov: NADIA CHRIS DO 12/07/19 NADIA CHRIS DO Dec 07, 2019 17:32
[2019-12-07] MEDS ORDERED: methylPREDNISolone 125 MG (Solu-MEDROL) VIAL IVP ONE (17:45)
[2019-12-07 17:49] VITALS: BP 141/65
== END 2019-12-07 17:49 | disposition home or self-care (01) ==
LOC: EDUNIT# 13:40 → ER 13:41
DX: R06.09 Other forms of dyspnea (principal); J45.909 Unspecified asthma, uncomplicated; E11.9 Type 2 diabetes mellitus without complications; E03.9 Hypothyroidism, unspecified; F32.9 Major depressive disorder, single episode, unspecified; K21.9 Gastro-esophageal reflux disease without esophagitis; K58.9 Irritable bowel syndrome, unspecified; Z88.5 Allergy status to narcotic agent; Z88.6 Allergy status to analgesic agent; Z79.82 Long term (current) use of aspirin; Z90.710 Acquired absence of both cervix and uterus; Z80.0 Family history of malignant neoplasm of digestive organs; Z82.49 Family history of ischemic heart disease and other diseases of the circulatory system
CPT/HCPCS: 36415; 71046; 71275; 80053; 81000; 82550; 82553; 83735; 83874; 83880; 84443; 84484; 85025; 85610; 85730; 93005; 93041; 96374

== ENCOUNTER → 2020-05-13 | Outpatient (CLI) | payer MEDICARE ==
[~2020-05-13] MED LIST changes: +CATHETER FLUSH 10 ML SYR IV PRN; +METH4TAB PO; +REGADENOSON 0.4 MG/5 ML SYR (LEXISCAN) IV ONE
--- NOTE | 2020-05-17 14:47 | STRESS TEST ---
DATE OF SERVICE: 05/13/2020 RESTING AND POST REGADENOSON TECHNETIUM-99M TETROFOSMIN SPECT CT IMAGING ORDERING PHYSICIAN: Kaylen Haynes APRN PRIMARY PHYSICIAN: Dr. Gonzalez. CLINICAL DIAGNOSIS: Shortness of breath, coronary artery disease, hypertension, hyperlipidemia. Baseline images were carried out after injection of 10.1 mCi of technetium-99m Tetrofosmin. This was followed by 0.4 mg regadenoson and 30.3 mCi of technetium-99m Tetrofosmin for stress imaging. The electrocardiogram showed sinus rhythm. There is nonspecific ST and T-wave abnormality at baseline, and this did not change significantly with the regadenoson infusion. Review of images at rest and following stress does not indicate any distinct perfusion defects consistent with significant myocardial ischemia or infarction. There does appear to be attenuation of the diaphragmatic wall of the left ventricle. This is seen both at rest and following regadenoson infusion. Gated images show normal global left ventricular systolic function with normal regional wall motion, including the diaphragmatic wall of the left ventricle. The left ventricular end-diastolic volume is 65 mL. TID is absent (1.1). CONCLUSIONS: 1. No evidence of significant myocardial ischemia or infarction on this study. 2. Normal regional wall motion. 3. Normal global left ventricular systolic function with a calculated ejection fraction of 73%. Job ID: [id number] DocumentID: [id number] Dictated Date: 05/17/2020 14:40:38 Executive Vice President Date: 05/17/2020 14:47:00 Dictated By: CELSO MAYES MD, MA, FACP, FACC,
== END ==
LOC: CARD 07:00
PROVIDERS: ATTEND Nurse Practitioner Family
DX: I25.10 Atherosclerotic heart disease of native coronary artery without angina pectoris (principal); I77.89 Other specified disorders of arteries and arterioles; I10 Essential (primary) hypertension; E78.5 Hyperlipidemia, unspecified; I48.0 Paroxysmal atrial fibrillation; R60.9 Edema, unspecified
CPT/HCPCS: 78452; 93017; A9502

== ENCOUNTER → 2020-05-28 | Outpatient (CLI) | payer OTHER, MEDICARE ==
[~2020-05-28] MED LIST changes: -CATHETER FLUSH 10 ML SYR IV PRN; -REGADENOSON 0.4 MG/5 ML SYR (LEXISCAN) IV ONE
[2020-05-28 14:42] LABS: ALBUMIN 4.1 GM/DL (3.2-4.5); CHLORIDE 104 MMOL/L (98-107); POTASSIUM 4.4 MMOL/L (3.6-5.0); SODIUM 145 MMOL/L (135-145)
[2020-05-28 14:44] LABS: CALCIUM 9.2 MG/DL (8.5-10.1)
[2020-05-28 14:45] LABS: GLUCOSE 194 MG/DL (70-105); TOTAL PROTEIN 6.7 GM/DL (6.4-8.2)
[2020-05-28 14:46] LABS: CARBON DIOXIDE 28 MMOL/L (21-32)
[2020-05-28 14:47] LABS: BILIRUBIN,TOTAL 0.3 MG/DL (0.1-1.0)
[2020-05-28 14:48] LABS: ALKALINE PHOSPHATASE 111 U/L (40-136); CREATININE SERUM 0.77 MG/DL (0.60-1.30); GFR ESTIMATED > 60
[2020-05-28 14:49] LABS: BUN/CREATININE RATIO 14
[2020-05-28 14:51] LABS: ALANINE AMINOTRANSFERASE 113 U/L (0-55)
== END ==
LOC: LABNPT 14:08
PROVIDERS: ATTEND Family Medicine
DX: Z01.89 Encounter for other specified special examinations (principal)
CPT/HCPCS: 80053

== ENCOUNTER → 2020-06-06 | Outpatient (CLI) | payer MEDICARE ==
[~2020-06-06] MED LIST changes: +HOLD METFORMIN - RECEIVED CONTRAST 20 ML VIAL IV SCH; +IOHEXOL 350 MG/ML 100 ML (OMNIPAQUE 350) VIAL IV ONE; +NS 100 ML (IVPB) BAG IV ONE
[2020-06-06 07:10] LABS: GFR ESTIMATED > 60
[2020-06-06 07:11] LABS: BUN/CREATININE RATIO 15
--- NOTE | 2020-06-06 09:29 | Diagnostic Imaging Report ---
PROCEDURE: CT chest with contrast only. TECHNIQUE: Multiple contiguous axial images were obtained through the chest after administration of intravenous contrast. Auto Exposure Controls were utilized during the CT exam to meet ALARA standards for radiation dose reduction. INDICATION: Dyspnea. Cough. Asthma. Shortness of air. COMPARISON: 12/07/2019 FINDINGS: Evaluation of the lung gaitan again demonstrates punctate micronodular densities within the posterior inferior margins of bilateral lower lobes. Reference micronodule on the right measures 4 mm (image 105, series 3). Several other subpleural micronodules are also noted within the superior segment of the right lower lobe and measure approximately 3 mm (image 61, series 3). These too, however, are stable. No new or enlarging suspicious pulmonary nodule or mass is identified on either side. There is no focal consolidation, large effusion, nor pneumothorax. Cardiomediastinal structures show normal heart size. There is no large pericardial effusion. No pathologically enlarged or morphologically abnormal adenopathy is seen within the mediastinum, luiz, nor axilla. Osseous structures show no acute abnormalities. No lytic or blastic bony lesions are seen. Age-related degenerative changes are noted. Included portions of the upper abdomen show hepatic steatosis, but no additional acute abnormalities are identified. IMPRESSION: 1. Several punctate micronodular densities of bilateral lower lobes are again identified, but are stable compared to 12/07/2019. One-year follow-up could be performed to ensure ongoing stability. 2. No new or enlarging suspicious pulmonary nodules or masses. 3. Hepatic steatosis. Dictated by: Dictated on workstation # [id number]
== END ==
LOC: RAD 06:40
PROVIDERS: ATTEND Nurse Practitioner Family
DX: J98.4 Other disorders of lung (principal); K76.0 Fatty (change of) liver, not elsewhere classified; J30.9 Allergic rhinitis, unspecified; G47.36 Sleep related hypoventilation in conditions classified elsewhere; G47.10 Hypersomnia, unspecified; G47.50 Parasomnia, unspecified; J45.909 Unspecified asthma, uncomplicated
CPT/HCPCS: 36415; 71260; 82565; 84520

== ENCOUNTER → 2020-12-27 | Outpatient (CLI) | payer MEDICARE, MEDICAID ==
[~2020-12-27] MED LIST changes: +CATHETER FLUSH 10 ML SYR IV PRN
[2020-12-27 07:22] LABS: CREATININE SERUM 0.73 MG/DL (0.60-1.30); GFR ESTIMATED > 60
[2020-12-27 07:23] LABS: BUN/CREATININE RATIO 25
--- NOTE | 2020-12-27 08:52 | Diagnostic Imaging Report ---
PROCEDURE: US Venous Lower Ext Edwin. TECHNIQUE: Multiple real-time grayscale images were obtained over the lower extremities in various projections, bilaterally. Additional duplex Doppler and color Doppler images were also obtained. INDICATION: Bilateral lower extremity edema PROCEDURE: US Venous Lower Ext Edwin. EXAMINATIONS: Both grayscale and color Doppler imaging of the deep veins of the lower extremities were performed with waveform analysis. FINDINGS: There is no intraluminal filling defect. Normal continuous flow is seen throughout the deep venous systems of both legs, and there is normal response to augmentation. The deep veins compress normally. IMPRESSION: No ultrasound evidence of deep venous thrombosis in either lower extremity. Dictated by: Dictated on workstation # [id number]
--- NOTE | 2020-12-27 09:03 | Diagnostic Imaging Report ---
PROCEDURE: CT angiography of the chest with contrast. TECHNIQUE: Multiple contiguous axial images were obtained through the chest after uneventful bolus administration of intravenous contrast. 3D reconstructed CTA MIP acquisitions were also performed. Auto Exposure Controls were utilized during the CT exam to meet ALARA standards for radiation dose reduction. INDICATION: Shortness of air, pulmonary embolism. COMPARISON: 06/06/2020, 12/07/2019, and 07/24/2019. FINDINGS: Right thyroidectomy. Small nodules are identified within the left lobe of the thyroid gland, appearing similar to the prior exam. Loop recorder within the left breast medially. No significant adenopathy within the chest. No aneurysmal dilatation of the thoracic aorta. The heart is within normal limits in size. No significant pericardial effusion. No pleural effusion. No pneumothorax. Multiple tiny sub-zero 0.4 cm pulmonary nodules are identified within the lungs bilaterally, particularly the right lower lobe. These have not significantly changed from the prior examinations. No new suspicious pulmonary nodule. No significant filling defect within the central or segmental pulmonary arteries. Tiny hiatal hernia. Diffusely decreased density of the liver. Cholecystectomy. The minimally visualized upper abdomen is otherwise unremarkable. No acute osseous abnormality with scattered osseous degenerative changes. IMPRESSION: No significant pulmonary embolus. No acute abnormality. Tiny 0.4 cm and smaller bilateral pulmonary nodules, not significantly changed from the prior examinations. Followup CT in 1 year is recommended to ensure stability. No new suspicious pulmonary nodules. Fatty infiltration of the liver. Additional findings as above. Dictated by: Dictated on workstation # [id number]
== END ==
LOC: RAD 08:15
PROVIDERS: ATTEND Nurse Practitioner Family
DX: Z03.89 Encounter for observation for other suspected diseases and conditions ruled out (principal); I26.99 Other pulmonary embolism without acute cor pulmonale; M79.609 Pain in unspecified limb; M79.89 Other specified soft tissue disorders; K76.0 Fatty (change of) liver, not elsewhere classified; R91.1 Solitary pulmonary nodule
CPT/HCPCS: 36415; 71275; 82565; 84520; 93970

== ENCOUNTER → 2021-04-11 | Outpatient (CLI) | payer MEDICARE, MEDICAID ==
[~2021-04-11] MED LIST changes: -CATHETER FLUSH 10 ML SYR IV PRN; -HOLD METFORMIN - RECEIVED CONTRAST 20 ML VIAL IV SCH; -IOHEXOL 350 MG/ML 100 ML (OMNIPAQUE 350) VIAL IV ONE; -NS 100 ML (IVPB) BAG IV ONE; +RT-ALBUTEROL SULF 2.5 MG/3 ML PRE-MIX VIAL INH ONE; -TRIH5TAB2 PO; +TRIH5TAB7 PO
== END ==
LOC: RT 07:05
PROVIDERS: ATTEND Nurse Practitioner Family
DX: J45.909 Unspecified asthma, uncomplicated (principal)
CPT/HCPCS: 94060; 94726; 94729

== ENCOUNTER → 2021-06-20 | Outpatient (CLI) | payer MEDICARE, MEDICAID ==
[~2021-06-20] MED LIST changes: -RT-ALBUTEROL SULF 2.5 MG/3 ML PRE-MIX VIAL INH ONE
== END ==
LOC: CARD 09:00
PROVIDERS: ATTEND Internal Medicine Cardiovascular Disease
DX: R06.09 Other forms of dyspnea (principal)
CPT/HCPCS: 93306

== ENCOUNTER 2021-09-01 09:17 | Outpatient (RCR) | payer MEDICARE, MEDICAID ==
[2021-06-09] MEDS: OMALIZUMAB SUB-Q 150 MG (XOLAIR) VIAL SQ SCH (08:19)
[2021-06-09 08:24] VITALS: BP 130/74
[2021-07-07 12:34] VITALS: BP 130/68
[2021-07-07] MEDS: OMALIZUMAB SUB-Q 150 MG (XOLAIR) VIAL SQ SCH (12:56)
[2021-08-04 10:25] VITALS: BP 120/64
[2021-08-04] MEDS: OMALIZUMAB SUB-Q 150 MG (XOLAIR) VIAL SQ SCH (10:29)
[~2021-09-01] VITALS: Ht 175.3 cm; Wt 137.7 kg
[2021-09-01 09:45] VITALS: BP 126/65
[2021-09-01] MEDS: OMALIZUMAB SUB-Q 150 MG (XOLAIR) VIAL SQ SCH (09:50)
== END 2021-09-07 | disposition home or self-care (01) ==
LOC: SDC 09:17
PROVIDERS: ATTEND Nurse Practitioner Family
DX: J45.909 Unspecified asthma, uncomplicated (principal)
CPT/HCPCS: 96372

== ENCOUNTER 2021-11-06 07:51 | Outpatient (RCR) | payer MEDICARE, MEDICAID ==
[2021-10-09] MEDS: OMALIZUMAB SUB-Q 150 MG (XOLAIR) VIAL SQ SCH (09:26)
[2021-10-09 09:29] VITALS: BP 130/71
[~2021-11-06] VITALS: Ht 172 cm; Wt 137.7 kg
[2021-11-06 07:45] VITALS: BP 112/61
[2021-11-06] MEDS: OMALIZUMAB SUB-Q 150 MG (XOLAIR) VIAL SQ SCH (08:08)
== END 2021-11-24 | disposition home or self-care (01) ==
LOC: SDC 07:51
PROVIDERS: ATTEND Nurse Practitioner Family
DX: J45.909 Unspecified asthma, uncomplicated (principal)
CPT/HCPCS: 96372

== ENCOUNTER → 2021-11-20 | Outpatient (CLI) | payer MEDICARE, MEDICAID ==
[~2021-11-20] MED LIST changes: +RT-ALBUTEROL SULF 2.5 MG/3 ML PRE-MIX VIAL INH ONE
--- NOTE | 2021-11-20 11:46 | Diagnostic Imaging Report ---
INDICATION: COPD and asthma. TIME OF EXAM: 11:16 AM Correlation is made with prior chest 12/07/2019. FINDINGS: The heart size is normal. The pulmonary vascularity is unremarkable. The lungs are clear. No infiltrate, effusion or pneumothorax is detected. IMPRESSION: No acute cardiopulmonary process is detected. Dictated by: Dictated on workstation # [id number]
== END ==
LOC: RT 10:45
PROVIDERS: ATTEND Internal Medicine Critical Care Medicine
DX: J44.9 Chronic obstructive pulmonary disease, unspecified (principal)
CPT/HCPCS: 71046; 94060; 94621; 94726; 94729

== ENCOUNTER 2021-12-04 10:36 | Outpatient (RCR) | payer MEDICARE, MEDICAID ==
[~2021-12-04 10:36] MED LIST changes: -RT-ALBUTEROL SULF 2.5 MG/3 ML PRE-MIX VIAL INH ONE
[2021-12-04 10:50] VITALS: BP 115/73
[2021-12-04] MEDS ORDERED: OMALIZUMAB SUB-Q 150 MG (XOLAIR) VIAL SQ SCH (11:00)
== END 2021-12-25 | disposition home or self-care (01) ==
LOC: SDC 10:36
PROVIDERS: ATTEND Nurse Practitioner Family
DX: J45.909 Unspecified asthma, uncomplicated (principal)
CPT/HCPCS: 96372

== ENCOUNTER → 2022-01-02 | Outpatient (CLI) | payer MEDICARE, MEDICAID ==
[~2022-01-02] MED LIST changes: +OMALIZUMAB SUB-Q 150 MG (XOLAIR) VIAL SQ SCH
[2022-01-02 11:15] VITALS: BP 133/73
== END ==
LOC: EDSTATUS 12-26 08:00 → SDC 10:24
PROVIDERS: ATTEND Nurse Practitioner Family
DX: J45.909 Unspecified asthma, uncomplicated (principal)
CPT/HCPCS: 96372

== ENCOUNTER 2022-01-31 09:04 | Outpatient (RCR) | payer MEDICARE, MEDICAID ==
[~2022-01-31] VITALS: Ht 175.3 cm; Wt 112.8 kg
[~2022-01-31 09:04] MED LIST changes: -OMALIZUMAB SUB-Q 150 MG (XOLAIR) VIAL SQ SCH
[2022-01-31] MEDS ORDERED: OMALIZUMAB SUB-Q 150 MG (XOLAIR) VIAL SQ SCH (09:30)
[2022-01-31 09:45] VITALS: BP 126/63
== END 2022-02-22 | disposition home or self-care (01) ==
LOC: SDC 09:04
PROVIDERS: ATTEND Internal Medicine Critical Care Medicine
DX: J45.40 Moderate persistent asthma, uncomplicated (principal)
CPT/HCPCS: 96372

== ENCOUNTER 2022-02-28 08:45 | Outpatient (RCR) | payer MEDICARE, MEDICAID ==
[~2022-02-28] VITALS: Wt 112.8 kg
[2022-02-28] MEDS ORDERED: OMALIZUMAB SUB-Q 150 MG (XOLAIR) VIAL SQ SCH (09:00)
[2022-02-28 09:20] VITALS: BP 108/66
== END 2022-03-24 | disposition home or self-care (01) ==
LOC: SDC 08:45
PROVIDERS: ATTEND Internal Medicine Critical Care Medicine
DX: J45.40 Moderate persistent asthma, uncomplicated (principal)
CPT/HCPCS: 96372

== ENCOUNTER 2022-03-28 07:54 | Outpatient (RCR) | payer MEDICARE, MEDICAID ==
[~2022-03-28] VITALS: Ht 172.7 cm; Wt 112.8 kg
[2022-03-28] MEDS ORDERED: OMALIZUMAB SUB-Q 150 MG (XOLAIR) VIAL SQ SCH (08:15)
[2022-03-28 08:43] VITALS: BP 141/80
== END 2022-04-24 | disposition home or self-care (01) ==
LOC: SDC 07:54
PROVIDERS: ATTEND Internal Medicine Critical Care Medicine
DX: J45.40 Moderate persistent asthma, uncomplicated (principal)
CPT/HCPCS: 96372

== ENCOUNTER 2022-04-25 08:19 | Outpatient (RCR) | payer MEDICARE, MEDICAID ==
[2022-04-25] MEDS ORDERED: OMALIZUMAB SUB-Q 150 MG (XOLAIR) VIAL SQ SCH (08:45)
[2022-04-25] MEDS ORDERED: NS IV 1000 ML 1,000 ML IV SCH (08:45)
[2022-04-25 08:47] VITALS: BP 134/70
== END 2022-05-24 | disposition home or self-care (01) ==
LOC: SDC 08:19
PROVIDERS: ATTEND Internal Medicine Critical Care Medicine
DX: J45.40 Moderate persistent asthma, uncomplicated (principal)
CPT/HCPCS: 96372

== ENCOUNTER 2022-06-01 07:50 | Outpatient (RCR) | payer MEDICARE, MEDICAID ==
[~2022-06-01] VITALS: Wt 112.8 kg
[2022-06-01 08:18] VITALS: BP 100/65
[2022-06-01] MEDS ORDERED: OMALIZUMAB SUB-Q 150 MG (XOLAIR) VIAL SQ SCH (08:30)
== END 2022-06-24 | disposition home or self-care (01) ==
LOC: SDC 07:50
PROVIDERS: ATTEND Internal Medicine Critical Care Medicine
DX: J45.40 Moderate persistent asthma, uncomplicated (principal)
CPT/HCPCS: 96372

== ENCOUNTER 2022-07-05 08:26 | Outpatient (RCR) | payer MEDICARE, MEDICAID ==
[~2022-07-05] VITALS: Wt 112.8 kg
[2022-07-05 08:30] VITALS: BP 109/64
[2022-07-05] MEDS ORDERED: OMALIZUMAB SUB-Q 150 MG (XOLAIR) VIAL SQ SCH (09:00)
[2022-07-05] MEDS ORDERED: CATHETER FLUSH 10 ML SYR IVP PRN (09:00)
== END 2022-07-25 | disposition home or self-care (01) ==
LOC: SDC 08:26
PROVIDERS: ATTEND Internal Medicine Critical Care Medicine
DX: J45.40 Moderate persistent asthma, uncomplicated (principal)
CPT/HCPCS: 96372

== ENCOUNTER 2022-08-22 08:37 | Outpatient (RCR) | payer MEDICARE, MEDICAID ==
[~2022-08-22] VITALS: Wt 112.8 kg
[2022-08-22] MEDS ORDERED: OMALIZUMAB SUB-Q 150 MG (XOLAIR) VIAL SQ SCH (09:30)
[2022-08-22 09:50] VITALS: BP 130/65
== END 2022-08-24 | disposition home or self-care (01) ==
LOC: SDC 08:37
PROVIDERS: ATTEND Internal Medicine Critical Care Medicine
DX: J45.40 Moderate persistent asthma, uncomplicated (principal)
CPT/HCPCS: 96372

== ENCOUNTER 2022-09-21 08:28 | Outpatient (RCR) | payer OTHER, MEDICAID ==
[2022-09-07 08:33] VITALS: BP 125/80
[2022-09-07] MEDS: OMALIZUMAB SUB-Q 150 MG (XOLAIR) VIAL SQ SCH (09:13)
[~2022-09-21 08:28] MED LIST changes: +CATHETER FLUSH 10 ML SYR IVP PRN
[2022-09-21 08:30] VITALS: BP 117/59
[2022-09-21] MEDS: OMALIZUMAB SUB-Q 150 MG (XOLAIR) VIAL SQ SCH (08:48)
== END 2022-09-24 | disposition home or self-care (01) ==
LOC: SDC 08:28
PROVIDERS: ATTEND Internal Medicine Critical Care Medicine
DX: J45.40 Moderate persistent asthma, uncomplicated (principal)
CPT/HCPCS: 96372

== ENCOUNTER 2022-10-23 08:52 | Outpatient (RCR) | payer MEDICARE, MEDICAID ==
[2022-10-05 08:20] VITALS: BP 113/62
[2022-10-05] MEDS: OMALIZUMAB SUB-Q 150 MG (XOLAIR) VIAL SQ SCH (08:27)
[~2022-10-23] VITALS: Wt 112.8 kg
[~2022-10-23 08:52] MED LIST changes: -CATHETER FLUSH 10 ML SYR IVP PRN
[2022-10-23 09:00] VITALS: BP 111/63
[2022-10-23] MEDS: OMALIZUMAB SUB-Q 150 MG (XOLAIR) VIAL SQ SCH (09:14)
== END 2022-10-24 | disposition home or self-care (01) ==
LOC: SDC 08:52
PROVIDERS: ATTEND Internal Medicine Critical Care Medicine
DX: J45.40 Moderate persistent asthma, uncomplicated (principal)
CPT/HCPCS: 96372

== ENCOUNTER 2022-11-20 07:18 | Outpatient (RCR) | payer MEDICARE, MEDICAID ==
[2022-11-06] MEDS: OMALIZUMAB SUB-Q 150 MG (XOLAIR) VIAL SQ SCH (08:09)
[2022-11-06 08:10] VITALS: BP 127/67
[~2022-11-20] VITALS: Ht 175 cm; Wt 122.8 kg
[2022-11-20] MEDS: OMALIZUMAB SUB-Q 150 MG (XOLAIR) VIAL SQ SCH (07:51)
[2022-11-20 07:56] VITALS: BP 122/77
== END 2022-11-24 | disposition home or self-care (01) ==
LOC: SDC 07:18
PROVIDERS: ATTEND Internal Medicine Critical Care Medicine
DX: J45.40 Moderate persistent asthma, uncomplicated (principal)
CPT/HCPCS: 96372

== ENCOUNTER → 2022-12-05 | Outpatient (CLI) | payer MEDICARE, MEDICAID ==
--- NOTE | 2022-12-05 11:59 | Diagnostic Imaging Report ---
INDICATION: COPD. TIME OF EXAM: 11:06 a.m. COMPARISON: Correlation is made with prior chest from 11/20/2021. FINDINGS: Heart size is normal. Cardiac loop recorder overlies the lower left chest. No parenchymal consolidation is identified. There is some linear atelectasis or scarring in both bases. Mid and upper lung gaitan are clear. No effusion or pneumothorax is detected. IMPRESSION: Bibasilar scarring or atelectasis. No acute feature is detected. Dictated by: Dictated on workstation # [id number]
== END ==
LOC: RAD 10:39
PROVIDERS: ATTEND Internal Medicine Critical Care Medicine
DX: J44.1 Chronic obstructive pulmonary disease with (acute) exacerbation (principal); J45.40 Moderate persistent asthma, uncomplicated; J30.1 Allergic rhinitis due to pollen; J20.9 Acute bronchitis, unspecified; J98.01 Acute bronchospasm
CPT/HCPCS: 71046

== ENCOUNTER → 2022-12-12 | Outpatient (CLI) | payer OTHER, MEDICAID | LOC: RT 12:59 | PROVIDERS: ATTEND Internal Medicine Critical Care Medicine | DX: J44.1 Chronic obstructive pulmonary disease with (acute) exacerbation (principal); J45.40 Moderate persistent asthma, uncomplicated; J30.1 Allergic rhinitis due to pollen; J20.9 Acute bronchitis, unspecified; J98.01 Acute bronchospasm | CPT/HCPCS: 94060; 94621 ==

== ENCOUNTER 2022-12-18 11:00 | Day surgery (SDC) | payer OTHER, MEDICAID ==
[2022-12-18] VITALS (8 sets, daily range): BP systolic 106–141; BP diastolic 59–76
[~2022-12-18] VITALS: Ht 180.3 cm; Wt 121.5 kg
[2022-12-18 08:59] LABS: HEMATOCRIT 42 % (35-52); HEMOGLOBIN 13.8 g/dL (11.5-16.0); MEAN CORPUSCULAR HEMOGLOBIN 31 pg (25-34); MEAN CORPUSCULAR HGB CONC 33 g/dL (32-36); MEAN CORPUSCULAR VOLUME 95 fL (80-99); MEAN PLATELET VOLUME 9.9 fL (9.0-12.2); PLATELET COUNT 310 10^3/uL (130-400); WHITE BLOOD COUNT 7.8 10^3/uL (4.3-11.0)
[2022-12-18 09:13] LABS: PROTHROMBIN TIME PATIENT 13.2 SEC (12.2-14.7)
[2022-12-18 09:18] LABS: ALBUMIN 4.2 GM/DL (3.2-4.5); BILIRUBIN,TOTAL 0.4 MG/DL (0.1-1.0); CALCIUM 9.6 MG/DL (8.5-10.1); CREATININE SERUM 0.68 MG/DL (0.60-1.30); POTASSIUM 3.5 MMOL/L (3.6-5.0)
--- NOTE | 2022-12-18 10:53 | Cardiac Procedure Note-CS/ASA ---
Pre-Procedure Note Pre-Op Procedure Note Date of Available H&P: Dec 12, 2022 Date H&P Reviewed: Dec 18, 2022 Time H&P Reviewed: 10:10 History & Physical: H&P Reviewed, No changes noted Pre-Operative Diagnosis: CAD Conscious Sedation Pre-Proced ASA Score 3 For ASA 3 and 4: Consider anesthesia and medical clearance. Also, for patients with a history of failed moderate sedation consider anesthesia. Airway Lungs Heart ASA score ASA 1: a normal healthy patient ASA 2: a patient with a mild systemic disease (mid diabetes, controlled hypertension, obesity ASA 3: a patient with a severe systemic disease that limits activity (angina, COPD, prior Myocardial infarction) ASA 4: a patient with an incapacitating disease that is a constant threat to life (CHF, renal failure) ASA 5: a moribund patient not expected to survive 24 hrs. (ruptured aneurysm) ASA 6: a declared brain- patient whose organs are being harvested. For emergent operations, add the letter E after the classification Mallampati Classification Grade 3 Sedation Plan Analgesia, Amnesia, Plan communicated to team members The patient is an appropriate candidate to undergo the planned procedure, sedation, and anesthesia. The patient immediately re-assessed prior to indication. CELSO MAYES MD FACP FAC CCDS Dec 18, 2022 10:53
--- NOTE | 2022-12-18 10:56 | Discharge Inst-Post CATH ---
Discharge Inst-CATH/EP Post Cardiac Cath/EP D/C Inst Follow Up/Plan F/u with Dr Matthews in 1-2 weeks ACTIVITY * Go Home directly and rest. * Limit activity of the leg (or wrist if it was used) for 7 days including aerobics, swimming, jogging, bicycling, etc. * Restrict stair-climbing for 7 days if possible, if not, climb up with your non-cath leg, then bring together on the same step. * Avoid lifting, pushing, pulling or excessive movement of the affected extremity for 7 days. * Customary sexual activity may be resumed after 2 days-use caution not to use a position that strains or causes pain to the affected extremity. * No driving for 24 hours. * NO SMOKING. * Avoid straining for bowel movements for 7 days. * Gentle walking on level ground is allowed. * Returning to work will depend on the type of procedure and the results. Your doctor will discuss this with you. CALL YOUR DOCTOR FOR ANY OF THE FOLLOWING: *If bleeding from the puncture site occurs- Apply gentle pressure to site with clean cloth and call your doctor or EMS. * If a knot or lump forms under the skin, increases in size, or causes pain. * If bruising appears to be worsening or moving further down your leg instead of disappearing. * Temperature above 101 F. CARE OF YOUR GROIN INCISION; * Bruising or purple discoloration of the skin near the puncture site is common. * You may shower only, no bathtub bathing for 5 days. Be careful to avoid slipping as your leg may feel stiff. * If a closure device was used on your femoral artery, please see the attached guide regarding care of the device and your leg. * Leave dressing on FOR 24 hours. CARE OF YOUR WRIST INCISION; * Bruising or purple discoloration of the skin near the puncture site is common. * You may shower. * DO NOT submerge wrist. * Leave dressing on FOR 24 hours. CELSO MATTHEWS MD [facility] F[facility] Dec 18, 2022 10:56
--- NOTE | 2022-12-18 10:56 | Discharge Inst-Cardiology ---
Discharge Inst-Cardiac Discharge Medications Continued Medications: Albuterol Sulfate (Albuterol Sulfate) 0.63 Mg/3 Ml Vial.neb 0.63 MG IH Q6H PRN for SHORTNESS OF BREATH, EACH Albuterol Sulfate (Ventolin Hfa) 1 Puff Puff 2 PUFF INH Q4H PRN for SHORTNESS OF BREATH, EA Apixaban (Eliquis) 5 Mg Tablet 5 MG PO BID, TAB Budesonide/Glycopyr/Formoterol (Breztri Aerosphere Inhaler) 160 Mcg-9 Mcg-4.8 Mcg/Actuation Hfa.aer.ad 2 PUFF INH BID, GM Butalb/Acetaminophen/Caffeine (Esgic 50-325-40 mg Tablet) 50 Mg-325 Mg-40 Mg Tablet 1 EACH PO Q4H PRN for MIGRAINE, TAB Cetirizine HCl (Cetirizine HCl) 10 Mg Tablet 10 MG PO DAILY, TAB Cholecalciferol (Vitamin D3) (Vitamin D3) 50 Mcg (2000 Unit) Tablet 50 MCG PO DAILY, TAB Cyanocobalamin (Vitamin B-12) 100 Mcg Tablet 100 MCG PO DAILY, TAB Ferrous Sulfate (Ferrous Sulfate) 325 Mg (65 Mg Iron) Tablet 325 MG PO BID, TAB Furosemide (Lasix) 40 Mg Tablet 40 MG PO DAILY, TAB Galcanezumab-Gnlm (Emgality) 120 Mg/Ml Pen.injctr 120 MG SQ MONTHLY, EA Iloperidone (Fanapt) 12 Mg Tablet 12 MG PO BID, TAB Levetiracetam (Levetiracetam) 750 Mg Tablet 750 MG PO BID, TAB Levothyroxine Sodium (Levothyroxine) 75 Mcg Capsule 75 MCG PO DAILY, CAP Linaclotide (Linzess) 145 Mcg Capsule 145 MCG PO DAILY, CAP Melatonin (Melatonin) 10 Mg Tablet 10 MG PO HS, TAB Metoprolol Succinate (Metoprolol Succinate) 50 Mg Tab.er.24h 25 MG PO DAILY, TAB TAKES OF A (50MG) TABLET Montelukast Sodium (Montelukast Sodium) 10 Mg Tablet 10 MG PO HS, TAB Multivitamin (Multivitamin) 1 Each Tablet 1 EACH PO DAILY, TAB Omalizumab (Xolair) 150 Mg/Ml Syringe 300 MG SQ [id number], EA Ondansetron (Ondansetron Odt) 4 Mg Tab.rapdis 4 MG SL Q4H PRN for NAUSEA/VOMITING-1ST LINE, TAB Pantoprazole Sodium (Pantoprazole Sodium) 40 Mg Tablet.dr 40 MG PO DAILY, TAB Potassium Chloride (Potassium Chloride) 10 Meq Tab.er.prt 10 MEQ PO DAILY Pregabalin (Lyrica) 50 Mg Capsule 50 MG PO TID, CAP Tizanidine HCl (Tizanidine HCl) 4 Mg Tablet 8 MG PO TID, TAB TAKES 2 (4MG) TABLETS Trazodone HCl (Trazodone HCl) 150 Mg Tablet 150 MG PO HS, TAB Vitamin E Acid Succinate (Vitamin E) 268 Mg (400 Unit) Tablet 268 MG PO DAILY, TAB CELSO MAYES MD FACP FACC CCDS Dec 18, 2022 10:56
[~2022-12-18 11:00] MED LIST changes: +ALBU0.63 IH; +APIX5TAB PO; +BUDE10.7 INH; +BUTA-249 PO; +CHOL200059 PO; +CYAN100T37 PO; +FERR325T18 PO; +FURO-124 PO; +GALC120P SQ; +HEParin (CATH LAB) 2,000 ML IV ONE; +ILOP12TA2 PO; +LEVE750T5 PO; +LEVO75CA5 PO; +LIDOCAINE 1% INJ 20 ML VIAL ONE; +LINA145C PO; +MELA10TA2 PO; +METO50TA7 PO; +MIDAZOLAM 5 MG/5 ML (VERSED) VIAL ONE; +MONT-40 PO; +MULT-1136 PO; +NS IV 1000 ML 1,000 ML IV SCH; +NS IV 1000 ML 1,000 ML ONE; +OMAL150S SQ; +ONDA4TAB11 SL; +PANT40TA52 PO; +PATIENT MAY USE OWN MEDS, ALL PO SCH; +POTA-177 PO; +PREG50CA2 PO; +RT-ALBUINH INH; +TIZA-186 PO; +TRAZ150T72 PO; +VITA400T7 PO; +fentaNYL INJ 100 MCG/2 ML AMP ONE
--- NOTE | 2023-01-02 09:03 | CARDIAC CATHETERIZATION ---
DATE OF SERVICE: 12/18/2022 CARDIAC CATHETERIZATION REPORT INDICATION: The patient is a 57-year-old lady who has been experiencing exertional shortness of breath and chest discomfort. Symptoms have been progressive. Myocardial perfusion imaging did not indicate significant ischemia. Pulmonary consultation was obtained. The older adult social work specialist felt that the chest discomfort was noncardiac. Because of increasing symptoms, cardiac catheterization was recommended and carried out today after having obtained an informed consent. DESCRIPTION OF PROCEDURE: She was brought to the cardiac catheterization laboratory in a fasting state. Right groin was prepared and draped in the usual sterile fashion. 1% lidocaine was used for local anesthesia. modified Seldinger technique was used to advance a 5-Haitian sheath in the right femoral artery. 5-Haitian JL4 catheterization left coronary angiography, 5-Haitian JR4 catheter, right coronary artery, 5-Haitian pigtail catheter was used for left heart catheterization and left ventricular angiography. Pigtail catheter was pulled back and removed. Angiography of the right femoral artery was carried out through the sheath. Mynx was used to achieve hemostasis. She tolerated the procedure well. HEMODYNAMICS: Left ventricular end diastolic pressure, following coronary angiography was 13 mmHg. There is no significant pressure gradient on pullback across the aortic valve. LEFT VENTRICULAR ANGIOGRAPHY: Left ventricular angiography was carried out in the right anterior oblique projection. Global left ventricular systolic function is normal. No regional wall motion abnormality was seen. Left ventricular ejection fraction is approximately 60%. CORONARY ANGIOGRAPHY: Left main coronary artery is free of significant disease. Left anterior descending artery is free of significant disease. Left circumflex artery is free of significant disease. Right coronary artery is dominant and free of significant disease. CONCLUSION: 1. No angiographically significant coronary artery disease. 2. Normal global left systolic function with ejection fraction of 60%. 3. Left ventricular end-diastolic pressure 13 mmHg. Job ID: [id number] DocumentID: [id number] Dictated Date: 12/18/2022 10:52:19 [facility] Well[facility] Coordinator Date: 12/18/2022 12:57:00 Dictated By: CELSO MAYES MD; MA; FACP; FACC;
== END 2022-12-18 14:04 | disposition home or self-care (01) ==
LOC: CATH 11:00 → SDC 11:15 → CATH 14:04
PROVIDERS: ATTEND Internal Medicine Cardiovascular Disease
DX: R07.89 Other chest pain (principal); I25.10 Atherosclerotic heart disease of native coronary artery without angina pectoris; I10 Essential (primary) hypertension; E78.2 Mixed hyperlipidemia; R06.09 Other forms of dyspnea; I70.213 Atherosclerosis of native arteries of extremities with intermittent claudication, bilateral legs; E11.9 Type 2 diabetes mellitus without complications; E03.9 Hypothyroidism, unspecified; E66.9 Obesity, unspecified; F41.9 Anxiety disorder, unspecified; F32.A Depression, unspecified; R29.6 Repeated falls; R60.9 Edema, unspecified; R09.02 Hypoxemia; I65.29 Occlusion and stenosis of unspecified carotid artery; Z79.890 Hormone replacement therapy; Z28.310 Unvaccinated for COVID-19; I45.10 Unspecified right bundle-branch block; Z68.37 Body mass index [BMI] 37.0-37.9, adult; Z86.73 Personal history of transient ischemic attack (TIA), and cerebral infarction without residual deficits; Z79.01 Long term (current) use of anticoagulants; Z79.899 Other long term (current) drug therapy
CPT/HCPCS: 80053; 80061; 85027; 85610; 85730; 87081; 93005; 93458; C1760; C1894; 36415

== ENCOUNTER 2022-12-19 10:05 | Outpatient (RCR) | payer MEDICARE, MEDICAID ==
[2022-12-04 08:15] VITALS: BP 122/63
[2022-12-04] MEDS: OMALIZUMAB SUB-Q 150 MG (XOLAIR) VIAL SQ SCH (08:21)
[~2022-12-19] VITALS: Ht 175.3 cm; Wt 118.5 kg
[~2022-12-19 10:05] MED LIST changes: +CATHETER FLUSH 10 ML SYR IVP PRN
[2022-12-19] MEDS: OMALIZUMAB SUB-Q 150 MG (XOLAIR) VIAL SQ SCH (10:35)
[2022-12-19 10:38] VITALS: BP 116/70
== END 2022-12-25 | disposition home or self-care (01) ==
LOC: SDC 10:05
PROVIDERS: ATTEND Internal Medicine Critical Care Medicine
DX: J45.40 Moderate persistent asthma, uncomplicated (principal)
CPT/HCPCS: 96372

== ENCOUNTER → 2022-12-19 | Outpatient (CLI) | payer MEDICARE, MEDICAID ==
[~2022-12-19] MED LIST changes: -HEParin (CATH LAB) 2,000 ML IV ONE; -LIDOCAINE 1% INJ 20 ML VIAL ONE; -MIDAZOLAM 5 MG/5 ML (VERSED) VIAL ONE; -NS IV 1000 ML 1,000 ML IV SCH; -NS IV 1000 ML 1,000 ML ONE; -PATIENT MAY USE OWN MEDS, ALL PO SCH; -fentaNYL INJ 100 MCG/2 ML AMP ONE
== END ==
LOC: CARD 11:32
PROVIDERS: ATTEND Internal Medicine Critical Care Medicine
DX: I51.7 Cardiomegaly (principal); I34.0 Nonrheumatic mitral (valve) insufficiency; I50.32 Chronic diastolic (congestive) heart failure
CPT/HCPCS: 93306

== ENCOUNTER 2023-01-17 09:42 | Outpatient (RCR) | payer MEDICARE, MEDICAID ==
[2023-01-03 10:00] VITALS: BP 124/63
[2023-01-03] MEDS: OMALIZUMAB SUB-Q 150 MG (XOLAIR) VIAL SQ SCH (10:49)
[~2023-01-17 09:42] MED LIST changes: -CATHETER FLUSH 10 ML SYR IVP PRN
[2023-01-17 09:50] VITALS: BP 131/84
[2023-01-17] MEDS: OMALIZUMAB SUB-Q 150 MG (XOLAIR) VIAL SQ SCH (10:01)
== END 2023-01-22 | disposition home or self-care (01) ==
LOC: SDC 09:42
PROVIDERS: ATTEND Internal Medicine Critical Care Medicine
DX: J45.40 Moderate persistent asthma, uncomplicated (principal); J98.4 Other disorders of lung; J98.11 Atelectasis
CPT/HCPCS: 96372

== ENCOUNTER 2023-02-14 09:13 | Outpatient (RCR) | payer MEDICARE, MEDICAID ==
[2023-01-31 08:00] VITALS: BP 139/75
[~2023-02-14] VITALS: Wt 118.5 kg
[~2023-02-14 09:13] MED LIST changes: +OMALIZUMAB SUB-Q 150 MG (XOLAIR) VIAL SQ SCH
[2023-02-14 09:23] VITALS: BP 139/68
[2023-02-14] MEDS ORDERED: OMALIZUMAB SUB-Q 150 MG (XOLAIR) VIAL SQ SCH (09:30)
== END 2023-02-22 | disposition home or self-care (01) ==
LOC: SDC 09:13
PROVIDERS: ATTEND Internal Medicine Critical Care Medicine
DX: J45.40 Moderate persistent asthma, uncomplicated (principal)
CPT/HCPCS: 96372

== ENCOUNTER 2023-03-14 06:38 | Outpatient (RCR) | payer MEDICARE, MEDICAID ==
[2023-02-28 10:13] VITALS: BP 120/60
[2023-02-28] MEDS: OMALIZUMAB SUB-Q 150 MG (XOLAIR) VIAL SQ SCH (10:13)
[~2023-03-14] VITALS: Ht 175 cm; Wt 118.5 kg
[2023-03-14] MEDS: OMALIZUMAB SUB-Q 150 MG (XOLAIR) VIAL SQ SCH (07:20)
[2023-03-14 07:28] VITALS: BP 120/61
== END 2023-03-24 | disposition home or self-care (01) ==
LOC: SDC 06:38
PROVIDERS: ATTEND Internal Medicine Critical Care Medicine
DX: J45.40 Moderate persistent asthma, uncomplicated (principal)
CPT/HCPCS: 96372

== ENCOUNTER 2023-03-28 09:01 | Outpatient (RCR) | payer MEDICARE, MEDICAID ==
[~2023-03-28] VITALS: Ht 175 cm; Wt 118.5 kg
[~2023-03-28 09:01] MED LIST changes: -OMALIZUMAB SUB-Q 150 MG (XOLAIR) VIAL SQ SCH
[2023-03-28] MEDS ORDERED: OMALIZUMAB SUB-Q 150 MG (XOLAIR) VIAL SQ SCH (09:30)
[2023-03-28 09:40] VITALS: BP 151/72
[2023-04-15] MEDS ORDERED: OMEP40CA6 PO (13:20)
[2023-04-15] MEDS ORDERED: FURO80TA83 PO (13:20)
[2023-04-15] MEDS ORDERED: ARPZ30T PO (13:20)
[2023-04-15] MEDS ORDERED: SERT-414 PO (13:20)
== END 2023-04-24 | disposition home or self-care (01) ==
LOC: SDC 09:01
PROVIDERS: ATTEND Internal Medicine Critical Care Medicine
DX: J45.40 Moderate persistent asthma, uncomplicated (principal)
CPT/HCPCS: 96372

== ENCOUNTER 2023-04-11 09:22 | Outpatient (RCR) | payer MEDICARE, MEDICAID ==
[2023-04-11 09:36] VITALS: BP 144/73
[2023-04-11] MEDS ORDERED: OMALIZUMAB SUB-Q 150 MG (XOLAIR) VIAL SQ SCH (09:45)
[2023-04-15] MEDS ORDERED: ARPZ30T PO (13:20)
[2023-04-15] MEDS ORDERED: FURO80TA83 PO (13:20)
[2023-04-15] MEDS ORDERED: OMEP40CA6 PO (13:20)
[2023-04-15] MEDS ORDERED: SERT-414 PO (13:20)
== END 2023-04-24 ==
LOC: SDC 09:22
PROVIDERS: ATTEND Internal Medicine Critical Care Medicine
DX: J45.40 Moderate persistent asthma, uncomplicated (principal)
CPT/HCPCS: 96372

== ENCOUNTER 2023-04-15 05:32 | Outpatient (CLI) | payer MEDICARE, MEDICAID ==
[~2023-04-15] VITALS: Ht 175.3 cm; Wt 123.2 kg
[2023-04-15] MEDS ORDERED: FURO80TA83 PO (13:20)
[2023-04-15] MEDS ORDERED: OMEP40CA6 PO (13:20)
[2023-04-15] MEDS ORDERED: SERT-414 PO (13:20)
[2023-04-15] MEDS ORDERED: ARPZ30T PO (13:20)
== END 2023-04-15 14:14 | disposition home or self-care (01) ==
LOC: PREOP 05:32
PROVIDERS: ATTEND Otolaryngology Otolaryngology/Facial Plastic Surgery
DX: Z01.818 Encounter for other preprocedural examination (principal)

== ENCOUNTER 2023-04-19 08:09 | Day surgery (SDC) | payer MEDICARE, MEDICAID ==
[~2023-04-19] VITALS: Ht 175.3 cm; Wt 123.2 kg
[2023-04-19] VITALS (11 sets, daily range): BP systolic 107–149; BP diastolic 48–75
[~2023-04-19 08:09] MED LIST changes: +ARPZ30T PO; +FURO80TA83 PO; +OMEP40CA6 PO; +SERT-414 PO
[2023-04-19] MEDS ORDERED: LACTATED RINGERS 1,000 ML IV PRN (08:15)
[2023-04-19 09:04] LABS: BASOPHILS # (AUTO) 0.1 10^3/uL (0.0-0.1); BASOPHILS % (AUTO) 1 % (0-10); EOSINOPHILS # (AUTO) 0.2 10^3/uL (0.0-0.3); EOSINOPHILS % (AUTO) 2 % (0-10); HEMATOCRIT 37 % (35-52); HEMOGLOBIN 12.2 g/dL (11.5-16.0); LYMPHOCYTES % (AUTO) 30 % (12-44); MEAN CORPUSCULAR HEMOGLOBIN 31 pg (25-34); MEAN CORPUSCULAR HGB CONC 33 g/dL (32-36); MEAN CORPUSCULAR VOLUME 94 fL (80-99); MEAN PLATELET VOLUME 10.1 fL (9.0-12.2); MONOCYTES # (AUTO) 0.6 10^3/uL (0.0-1.0); MONOCYTES % (AUTO) 8 % (0-12); NEUTROPHILS # (AUTO) 4.1 10^3/uL (1.8-7.8); NEUTROPHILS % (AUTO) 59 % (42-75); PLATELET COUNT 313 10^3/uL (130-400); WHITE BLOOD COUNT 6.9 10^3/uL (4.3-11.0)
[2023-04-19 09:42] LABS: CALCIUM 9.4 MG/DL (8.5-10.1); CREATININE SERUM 0.72 MG/DL (0.60-1.30); POTASSIUM 3.5 MMOL/L (3.6-5.0)
[2023-04-19] MEDS ORDERED: HYDROmorphone 2 MG/ML VIAL (DILAUDID) IV ONE (10:45)
[2023-04-19] MEDS ORDERED: ONDANSETRON 4 MG/2 ML (SDV) Z0FRAN IVP PRN (10:45)
[2023-04-19] MEDS ORDERED: PHENYLEPHRINE 0.5% NASAL SPR (NEO-SYNEPHRINE) REG ONE ×2 (10:50→12:07)
[2023-04-19] MEDS ORDERED: COCAINE HCL 4% 2 ML SYR ONE (10:50)
[2023-04-19] MEDS ORDERED: LIDOCAINE/EPI 1%-1:100,000 (XYLOCAINE) 20ML ONE (10:50)
[2023-04-19] MEDS ORDERED: MUPIROCIN 2% OINT 22 GM (BACTROBAN) TUBE ONE (10:50)
[2023-04-19] MEDS ORDERED: ONDANSETRON 4 MG/2 ML (SDV) Z0FRAN ONE (10:54)
[2023-04-19] MEDS ORDERED: ROCURONIUM 50 MG/5 ML (ZEMURON) VIAL IV ONE (10:54)
[2023-04-19] MEDS ORDERED: LIDOCAINE PF 2% 5 ML (XYLOCAINE) VIAL ONE (10:54)
[2023-04-19] MEDS ORDERED: fentaNYL INJ 100 MCG/2 ML AMP ONE (10:54)
[2023-04-19] MEDS ORDERED: MIDAZOLAM 2 MG/2 ML (VERSED) VIAL ONE (10:54)
[2023-04-19] MEDS ORDERED: GLYCOPYRROLATE 0.2 MG/ML (ROBINUL) 2 ML VIAL ONE (10:54)
[2023-04-19] MEDS ORDERED: proPOfol 200 MG/20 ML (DIPRIVAN) VIAL IV ONE (10:54)
--- NOTE | 2023-04-19 11:20 | Progress Note-Pre Operative ---
Pre-Operative Progress Note Date of Available H&P: April 19, 2023 Date H&P Reviewed: April 19, 2023 Time H&P Reviewed: 11:00 History & Physical: H&P Reviewed, Patient Examed, No changes noted Changes from last HP none Pre-Operative Diagnosis: Right Posterior Epiestaxis LUANNE OLSEN MD April 19, 2023 11:20
--- NOTE | 2023-04-19 11:21 | Progress Note-Post Operative ---
Post-Operative Progess Note Surgeon (s)/Journal Box Inspector (s) Surgeon LUANNE OLSEN MD Journal Box Inspector n/a Pre-Operative Diagnosis Right Posterior Epiestaxis Post-Operative Diagnosis same Post-Op Procedure Note Date of Procedure: April 19, 2023 Name of Procedure Performed: Endoscoopic Repair of Right Posterior Epistaxis Description & Findings Description and Findings: n/a Anesthesia Type get Estimated Blood Loss minimal Packing dissolvable nasal packing on right. Specimen(s) collected/removed none LUANNE OLSEN MD April 19, 2023 11:21
[2023-04-19] MEDS ORDERED: PHENYLEPHRINE 0.5% NASAL SPR (NEO-SYNEPHRINE) REG PRN (11:30)
[2023-04-19] MEDS ORDERED: HYDROcodone/APAP 5 MG/325 MG (LORTAB) TAB PO PRN (11:30)
[2023-04-19] MEDS ORDERED: D5 1/2 NS W/KCL 20 MEQ/L 1,000 ML IV SCH (11:30)
[2023-04-19] MEDS ORDERED: SUGAMMADEX 500 MG/5 ML VIAL (BRIDION) IV ONE (11:48)
[2023-04-19] MEDS ORDERED: NEOSTIGMINE (BLOXIVERZ ) 1 MG/1ML 10 ML VIAL ONE (12:04)
[2023-04-19] MEDS ORDERED: SEVOFLURANE (ULTANE) 15 ML INHAL SOLN ONE (12:05)
[2023-04-19] MEDS ORDERED: MUPIROCIN 2% OINT 22 GM (BACTROBAN) TUBE TOP ONE (12:05)
[2023-04-19] MEDS ORDERED: COCAINE HCL 4% 2 ML SYR TOP ONE (12:06)
--- NOTE | 2023-04-19 12:40 | Anesthesia-General Post-Op ---
General Patient Condition Mental Status/LOC: Same as Preop Cardiovascular: Satisfactory Nausea/Vomiting: Absent Respiratory: Satisfactory Pain: Controlled Complications: Absent Post Op Complications Complications None Follow Up Care/Instructions Patient Instructions None needed. Anesthesia/Patient Condition Patient Condition Patient is awake in PACU and doing well, no complaints, stable vital signs, no apparent adverse anesthesia problems. No complications reported per nursing. ART ELKINS DO April 19, 2023 12:40
== END 2023-04-19 13:55 | disposition home or self-care (01) ==
LOC: SDC 08:09
PROVIDERS: ATTEND Otolaryngology Otolaryngology/Facial Plastic Surgery
DX: R04.0 Epistaxis (principal); E66.01 Morbid (severe) obesity due to excess calories; Z79.01 Long term (current) use of anticoagulants; Z28.310 Unvaccinated for COVID-19; Z68.41 Body mass index [BMI] 40.0-44.9, adult
CPT/HCPCS: 36415; 80048; 85025; 87081; 93005

== ENCOUNTER 2023-05-23 06:53 | Outpatient (RCR) | payer MEDICARE, MEDICAID ==
[2023-04-25] MEDS: OMALIZUMAB SUB-Q 150 MG (XOLAIR) VIAL SQ SCH (07:45)
[2023-04-25 08:14] VITALS: BP 116/73
[2023-05-09 07:11] VITALS: BP 101/61
[2023-05-09] MEDS: OMALIZUMAB SUB-Q 150 MG (XOLAIR) VIAL SQ SCH (07:53)
[~2023-05-23] VITALS: Wt 123.2 kg
[2023-05-23 07:35] VITALS: BP 120/64
[2023-05-23] MEDS: OMALIZUMAB SUB-Q 150 MG (XOLAIR) VIAL SQ SCH (07:35)
== END 2023-05-24 | disposition home or self-care (01) ==
LOC: SDC 06:53
PROVIDERS: ATTEND Internal Medicine Critical Care Medicine
DX: J45.40 Moderate persistent asthma, uncomplicated (principal)
CPT/HCPCS: 96372

== ENCOUNTER 2023-06-20 06:30 | Outpatient (RCR) | payer MEDICARE, MEDICAID ==
[2023-06-06 07:15] VITALS: BP 108/62
[2023-06-06] MEDS: OMALIZUMAB SUB-Q 150 MG (XOLAIR) VIAL SQ SCH (07:27)
[2023-06-20 06:30] VITALS: BP 108/68
[2023-06-20] MEDS: OMALIZUMAB SUB-Q 150 MG (XOLAIR) VIAL SQ SCH (07:26)
== END 2023-06-24 | disposition home or self-care (01) ==
LOC: SDC 06:30
PROVIDERS: ATTEND Internal Medicine Critical Care Medicine
DX: J45.40 Moderate persistent asthma, uncomplicated (principal)
CPT/HCPCS: 96372

== ENCOUNTER 2023-07-22 07:29 | Outpatient (RCR) | payer MEDICARE, MEDICAID ==
[2023-07-08 08:30] VITALS: BP 139/74
[2023-07-08] MEDS: OMALIZUMAB INJECTION 150 MG VIAL SQ SCH (09:11)
[~2023-07-22 07:29] MED LIST changes: +OMALIZUMAB INJECTION 150 MG VIAL SQ SCH
[2023-07-22 08:00] VITALS: BP 118/69
[2023-07-22] MEDS: OMALIZUMAB INJECTION 150 MG VIAL SQ SCH (08:00)
== END 2023-07-25 | disposition home or self-care (01) ==
LOC: SDC 07:29
PROVIDERS: ATTEND Internal Medicine Critical Care Medicine
DX: J45.40 Moderate persistent asthma, uncomplicated (principal)
CPT/HCPCS: 96372

== ENCOUNTER 2023-09-18 08:07 | Outpatient (RCR) | payer MEDICARE, MEDICAID ==
[2023-09-02] MEDS: OMALIZUMAB 150 MG INJ (XOLAIR) SQ SCH (09:02)
[2023-09-02 09:05] VITALS: BP 123/66
[~2023-09-18 08:07] MED LIST changes: -OMALIZUMAB INJECTION 150 MG VIAL SQ SCH
[2023-09-18] MEDS: OMALIZUMAB 150 MG INJ (XOLAIR) SQ SCH (08:39)
[2023-09-18 08:40] VITALS: BP 127/67
== END 2023-09-24 | disposition home or self-care (01) ==
LOC: SDC 08:07
PROVIDERS: ATTEND Internal Medicine Critical Care Medicine
DX: J45.40 Moderate persistent asthma, uncomplicated (principal)
CPT/HCPCS: 96372

== ENCOUNTER → 2023-10-01 | Day surgery (SDC) | payer MEDICARE, MEDICAID ==
[~2023-10-01] VITALS: Ht 180.3 cm; Wt 114.2 kg
[~2023-10-01] MED LIST changes: +LIDOCAINE 1% INJ 20 ML VIAL INJ ONE; +LIDOCAINE 1% INJ 20 ML VIAL ONE
--- NOTE | 2023-10-01 19:46 | OPERATIVE REPORT ---
DATE OF SERVICE: 10/01/2023 PREOPERATIVE DIAGNOSES: Palpitations, paroxysmal atrial fibrillation, implantable loop recorder at end of life. POSTOPERATIVE DIAGNOSES: Palpitations, paroxysmal atrial fibrillation, removal of old implantable loop recorder and implantation of new loop recorder. INDICATIONS: The patient is a 58-year-old lady who has palpitations and paroxysmal atrial fibrillation. Implantable loop recorder has help with management of the symptoms and treatment. Her current one has reached end of life and she requested a new device. DESCRIPTION OF PROCEDURE: [facility] The left prepectoral area was prepared and draped in the usual sterile fashion; 1% lidocaine was used for local anesthesia. A small incision was made at the medial end of the implantable loop recorder and the device was removed from its pocket into which a new implantable loop recorder was implanted ([employer] LINQ II serial number [id number]). The wound edges were closed using 3-0 Vicryl. She tolerated the procedure well. Job ID: [id number] DocumentID: [id number] Dictated Date: 10/01/2023 10:40:18 [address] Technician Date: 10/01/2023 19:44:00 Dictated By: CELSO MAYES MD; TORO; FACP; FACC;
== END | disposition home or self-care (01) ==
LOC: CATH 09:00
PROVIDERS: ATTEND Internal Medicine Cardiovascular Disease
DX: Z45.09 Encounter for adjustment and management of other cardiac device (principal); I48.0 Paroxysmal atrial fibrillation
CPT/HCPCS: 33285

== ENCOUNTER 2023-10-16 07:30 | Outpatient (RCR) | payer MEDICARE, MEDICAID ==
[2023-10-02 08:42] VITALS: BP 126/70
[2023-10-02] MEDS: OMALIZUMAB 150 MG INJ (XOLAIR) SQ SCH (08:42)
[~2023-10-16] VITALS: Ht 175 cm; Wt 107.2 kg
[~2023-10-16 07:30] MED LIST changes: -LIDOCAINE 1% INJ 20 ML VIAL INJ ONE; -LIDOCAINE 1% INJ 20 ML VIAL ONE
[2023-10-16] MEDS: OMALIZUMAB 150 MG INJ (XOLAIR) SQ SCH (08:04)
[2023-10-16 08:10] VITALS: BP 112/66
[2023-10-16] MEDS ORDERED: FAMOTIDINE INJ 20MG/2ML VIAL IV ONE (08:45)
[2023-10-16] MEDS ORDERED: ONDANSETRON INJECTION 4 MG/2 ML (SDV) IV ONE (08:45)
== END 2023-10-16 08:10 | disposition home or self-care (01) ==
LOC: SDC 07:30
PROVIDERS: ATTEND Internal Medicine Critical Care Medicine
DX: J45.40 Moderate persistent asthma, uncomplicated (principal)
CPT/HCPCS: 96372